=== PATIENT | male | born 1965 | race Caucasian/White ===

== ENCOUNTER 2023-08-09 22:39 | Inpatient (IN) | payer OTHER, SELFPAY ==
[2023-08-09] VITALS (8 sets, daily range): BP systolic 86–127; BP diastolic 58–87; BMI 27.1
--- NOTE | 2023-08-09 20:02 | ED.GENMED ---
History of Present Illness
General
Chief Complaint: Weakness
Source: patient
Exam Limitations: none
Time Seen by Provider: 08/09/23 19:55
Travel History
Have you had any contact with someone who has COVID-19?: No
Do you have any symptoms of coronavirus? Fever > 100 degrees, chills, cough, shortness of breath, sore throat, loss of taste or smell, muscle aches, or headache?: No
History of Present Illness
History of Present Illness:
See MDM
Past History
Past History
ED Past Medical History: HTN, Hypercholesterolemia and Other (Gout)
Social History
Tobacco: Non-smoker
Alcohol: None
Phy Exam
Physical Exam
Physical Exam:
See MDM
Course
Orders/Labs/Results
Orders:
Orders
08/09/23 19:51
Electrocardiogram (*1) Urgent
Reason for Study: Shortness of Breath
EKG- Treatment ONCE
08/09/23 20:00
0.9% Sodium Chloride 1000 ml [Nss] 1,000 ml IV BOLUS
08/09/23 20:01
CR Chest Portable - 1 View Urgent
Comment:
Reason For Exam: SOB
Reason Study Needs to be Portable: Patient Unstable
08/09/23 20:06
CPK [Creatine Phosphokinase] Urgent
Complete Blood Count/With Diff Urgent
Comprehensive Metabolic Panel Urgent
D-Dimer Urgent
Free T4 Urgent
Lactic Acid Q4H
Comment: CANCEL 2nd LACTIC ACID IF 1st LACTIC ACID IS LESS THAN 2
Lipase Urgent
Magnesium Urgent
Protime/PTT Urgent
TSH Reflex To Free T4 Urgent
Troponin I Urgent
08/09/23 20:40
0.9% Sodium Chloride 1000 ml [Nss] 1,000 ml IV BOLUS
08/09/23 20:50
Potassium Chloride [KCl] 40 meq 0.9% Sodium Chloride 250 ml [Nss] 250 ml IV NOW
08/09/23 20:57
Azithromycin 500 mg IVPB NOW Azithromycin 500 mg/250 ml [Zithromax Infusion] 500 mg in 250 ml IV NOW
08/09/23 20:58
Aztreonam [Azactam] 2,000 mg IV NOW STA
08/10/23 00:00
Lactic Acid Q4H
Comment: CANCEL 2nd LACTIC ACID IF 1st LACTIC ACID IS LESS THAN 2
Abnormal Lab Results
08/09/23
20:06
WBC 16.4 H 10^3/uL
(4.8-10.8)
RBC 4.25 L 10^6/uL
(4.70-6.10)
MCV 97.9 H fL
(80.0-94.0)
MCH 34.8 H pg
(27.0-31.0)
RDW 14.9 H %
(11.5-14.5)
Plt Count 501 H 10^3/uL
(130-400)
MPV 10.6 H fL
(7.4-10.4)
Abs Immat Gran (auto) 0.2 H 10^3/uL
(0-0.05)
Absolute Neuts (auto) 12.5 H 10^3/uL
(1.4-6.5)
Absolute Monos (auto) 0.7 H 10^3/uL
(0.1-0.6)
Immature Gran % 1.2 H %
(0-0.5)
Neutrophils % 75.8 H %
(42.2-75.2)
Lymphocytes % 17.5 L %
(20.5-51.1)
PT 17.9 H Sec
(11.4-14.6)
APTT 37.3 H Sec
(23.4-35.0)
D-Dimer 0.55 H ug/mlFEU
(0.00-0.50)
Sodium 123 L mmol/L
(135-145)
Potassium 2.9 L mmol/L
(3.5-5.1)
Chloride 91 L mmol/L
(98-107)
BUN 50 H mg/dl
(9-20)
Creatinine 2.0 H mg/dL
(0.7-1.3)
Glucose 135 H mg/dl
(70-99)
Lactic Acid 4.5 H* mmol/L
(0.7-2.0)
Calcium 7.9 L mg/dl
(8.4-10.2)
Magnesium 2.7 H mg/dl
(1.6-2.3)
Total Bilirubin 3.5 H mg/dl
(0.2-1.3)
AST 140 H U/L
(17-59)
ALT 75 H U/L
(0-50)
Alkaline Phosphatase 236 H U/L
(38-126)
Creatine Kinase 26 L U/L
(55-170)
Albumin 2.6 L g/dl
(3.5-5.0)
08/09/23 20:06
08/09/23 20:06
Vital Signs
Initial and Last Documented VS:
Initial Vital Signs
Temp
97.5 F
08/09/23 19:44
Last Documented Vital Signs
Temp Pulse Resp BP Pulse Ox
97.5 F 96 16 106/73 100
08/09/23 19:44 08/09/23 20:30 08/09/23 20:30 08/09/23 20:30 08/09/23 20:24
MDM/Problems Addressed
Differential Diagnosis Includes:
HPI and MDM Narrative:
57-year-old male presenting with generalized weakness, fatigue and shortness of breath. This has been ongoing for the past 2 weeks. Patient was told that outpatient blood work was very abnormal. Patient believes this could be related to recent
infusions of Krystexxa for uncontrolled gout.
Patient brought back to the emergency department immediately. He is tachycardic, pale and hypotensive
Physical exam
General: Uncomfortable, weak and fatigue
HEENT: protecting airway
Neck: appears supple. Dry mucous membranes
CV: No evidence of cyanosis. Tachycardic
Resp: No accessory muscle use
Abd: Non-distended
Extremities: No deformities
Neuro: alert
Psych: Normal affect
Skin: Pale
Problems Addressed including Acute and Chronic Conditions affecting care:
1. Generalized weakness
Acuity: acute
Prognosis: unstable
Details: Will obtain basic blood work looking for evidence of metabolic encephalopathy.
2. Shortness of breath
Acuity: acute
Prognosis: stable
Details: Likely related to side effect of Krystexxa. Will obtain chest x-ray
3. Dehydration
Acuity: acute
Prognosis: stable
Details: Will start IV fluids
4. Hypokalemia
Acuity: acute
Prognosis: stable
Details: Will replete with IV potassium
5. Pneumonia
Acuity: Acute
Prognosis: Stable
Details: Concern for right middle lobe pneumonia on chest x-ray. Given the leukocytosis and elevated lactic acid, will start azithromycin and aztreonam given his penicillin allergy
Updates
Patient with multiple lab abnormalities. Patient is hyponatremic and hypokalemic. He has an elevated lactic acid and elevated LFTs. On reassessment, patient continues to have no tenderness to right upper quadrant tenderness
Differential Diagnosis (but not limited to): Dehydration, anemia, adverse medication side effect, pneumonia
Testing considered: D-dimer
Drug therapy (if applicable): OTC meds, please see d/c instruction regarding Rx drugs
Amount and/or Complexity of Data Reviewed
Clinical info obtained from: Patient
External data reviewed: N/A
Labs I independently reviewed (but not limited to): Sodium 123, potassium 2.9, lactic acid 4.5, leukocytosis
Radiology: X-ray independently reviewed: Chest x-ray concerning for right middle lobe pneumonia
Pulse Ox: not hypoxic
EKG independently reviewed: Sinus tachycardia, normal axis, no STEMI
Business Case Analyst: Sinus tachycardia
Critical Care: The high probability of a clinically significant, sudden or life threatening deterioration of the cardiovascular system(s) required my full and direct attention, intervention and personal management. The aggregate critical care time
was 33 minutes. This time is in addition to time spent performing reported procedures but includes the following:
[x] Data Review and interpretation
[x] Patient assessment and monitoring of vital signs
[x] Documentation
[x] Medication orders and management
Risk of Complication:
Social Determinants of health: Good social support
Discussed with other providers: Hospitalist
Escalation of Care includes Admit/Obs: Given his multiple lab abnormalities, will admit
Occasional wrong word or 'sound a like' substitutions may have occurred due to the inherent limitations of voice recognition software. Read the chart carefully and recognize, using context, where substitutions have occurred.
*Critical Care Note
Total Time (30-74mins, 75-104mins- exclusive of procedures): 33 min
ED Attending Note
-
Portions of this chart may have been created with voice recognition software.� Occasional wrong word or��sound alike� substitutions may have occurred due to the inherent limitations of voice recognition software.
Discharge Plan
Departure
Patient Disposition: Admit
Date of Disposition: 08/09/23
Time of Disposition: 20:52
Admit to: IMU
Presentation/result/management discussed w/ accepting MD/DO: Hospitalist
Discharge Problem:
Hypovolemia, Acute hyponatremia, Hypokalemia, PNA (pneumonia)
Prescriptions:
No Action
amlodipine 5 mg Tablet
5 mg PO DAILY
levothyroxine 75 mcg Tablet
75 mcg PO DAILY
methotrexate sodium 2.5 mg Tablet
15 mg PO SA
folic acid 1 mg Tablet
1 mg PO DAILY
colchicine 0.6 mg Tablet
0.6 mg PO DAILY
Patient Comments:
08/09/2023: Pt states he sometimes skips if he hasn't eaten a lot or doesn't have a flare up.
Krystexxa 8 mg/mL Solution
8 mg IV Q2W
Interventions
Interventions:
*Risk Screen - Suicide Last Done: 08/09/23 19:44
*General Assessment Last Done: 08/09/23 19:44
*Neglect/Abuse Screening Last Done: 08/09/23 19:44
ED- Fall Risk Assessment Last Done: 08/09/23 20:24
*ED COVID-19 Vaccine History Last Done: 08/09/23 19:44
ED- Cardiac Assessment Last Done: 08/09/23 20:24
ED- Neurological Assessment Last Done: 08/09/23 20:24
ED- Pulmonary Assessment Last Done: 08/09/23 20:24
[2023-08-09 20:15] LABS: % Basophils 0.7 % (0-2); % Eosinophils 0.7 % (0-6); % Immature Granulocytes 1.2 % (0-0.5); % Lymphocytes 17.5 % (20.5-51.1); % Monocytes 4.1 % (1.7-9.3); % Neutrophils 75.8 % (42.2-75.2); Absolute Basophils 0.1 10^3/uL (0-0.2); Absolute Eosinophils 0.1 10^3/uL (0-0.7); Absolute Immature Granulocytes 0.2 10^3/uL (0-0.05); Absolute Lymphocytes 2.9 10^3/uL (1.2-3.4); Absolute Monocytes 0.7 10^3/uL (0.1-0.6); Absolute Neutrophils 12.5 10^3/uL (1.4-6.5); Hematocrit 41.6 % (39.0-52.0); Hemoglobin 14.8 g/dL (13.0-18.0); Mean Corp Hgb Conc. 35.6 g/dL (33.0-37.0); Mean Corpuscular Hgb 34.8 pg (27.0-31.0); Mean Corpuscular Volume 97.9 fL (80.0-94.0); Mean Platelet Volume 10.6 fL (7.4-10.4); Nucleated Red Blood Cells % 0.1 % (-); Platelet Count 501 10^3/uL (130-400); Red Blood Cell Count 4.25 10^6/uL (4.70-6.10); Red Cell Dist. Width 14.9 % (11.5-14.5); White Blood Cell Count 16.4 10^3/uL (4.8-10.8)
[2023-08-09] MEDS: NSS 1000 IV ×2 (20:17→21:02)
[2023-08-09 20:24] LABS: INR 1.47; PT 17.9 Sec (11.4-14.6)
[2023-08-09 20:25] LABS: APTT 37.3 Sec (23.4-35.0)
[2023-08-09 20:27] LABS: D-Dimer 0.55 ug/mlFEU (0.00-0.50)
[2023-08-09 20:29] LABS: Lactic Acid 4.5 mmol/L (0.7-2.0)
[2023-08-09 20:30] LABS: ALT (SGPT) 75 U/L (0-50); AST (SGOT) 140 U/L (17-59); Albumin 2.6 g/dl (3.5-5.0); Alkaline Phosphatase 236 U/L (38-126); Blood Urea Nitrogen 50 mg/dl (9-20); Calcium 7.9 mg/dl (8.4-10.2); Carbon Dioxide 23 mmol/L (22-30); Chloride 91 mmol/L (98-107); Creatine Phosphokinase 26 U/L (55-170); Estimated Creatinine Clearance 39 ml/min; Glucose 135 mg/dl (70-99); Lipase 71 U/L (23-300); Magnesium 2.7 mg/dl (1.6-2.3); Potassium 2.9 mmol/L (3.5-5.1); Sodium 123 mmol/L (135-145); Total Bilirubin 3.5 mg/dl (0.2-1.3); Total Protein 6.6 g/dl (6.3-8.2); eGFR 38.69
[2023-08-09] MEDS: AZACTAM 2000 MG IV (21:12)
[2023-08-09] MEDS: ZITHROMAX INFUSION 250 IV (21:33)
--- NOTE | 2023-08-09 22:09 | HPS.HSE ---
Family Physician
-
Family Physician: Juan Acevedo IV, MD
Chief Complaint
-
Weakness
History of Present Illness
Patient is a 57y M with PMH significant for hypothyroidism, gout and hypertension who presents to ED complaining of progressive weakness, dizziness and frequent falls over the past several weeks. Patient states that he first noted significant
fatigue and positional dizziness / lightheadedness in early July. His symptoms have steadily progressed since that time. Patient states that he has fallen on several occasions due to weakness and his legs 'giving out' on him while walking. He
states that he is able only to walk very short distances before becoming severely short of breath and weak.
Patient has noted a severe itchy rash / acne breakout on his face over the past week or so.
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 He was started on MTX in April 2023.
He denies any other new medications.
Patient notes that he was seen recently by his PCP and his [facility] and voiced concern with his current symptoms.
Labs were obtained and were reportedly 'all abnormal'.
Patient notes that he himself stopped all of his medications about one week ago.
This evening he presented to the ED for further evaluation and treatment.
Medical History
Past Medical History
Past Medical History: Reports Other
Additional Past Medical History:
Tophaceous Gout
Hypertension
Hypothyroidism
Past Surgical History: Reports Other
Additional Past Surgical History:
Right Hand Tendon Surgery
Social History
Tobacco: Smoker (Current every day smoker (though none in the past week or so due to his symptoms).)
Alcohol: None
Drug: None
Family History
Family History: Other (MGF: CAD, Colon Cancer)
Allergies / Home Medications
Allergies reflects when Allergies were last updated in [employer].
Home Medications with original date entered in [employer]
Allergy/Medication List:
Allergies
Allergy/AdvReac Type Severity Reaction Status Date / Time
Penicillins Allergy Unknown Verified 08/09/23 19:45
Home Medications
amlodipine 5 mg tablet 5 mg PO DAILY 08/09/23
colchicine 0.6 mg tablet 0.6 mg PO DAILY 08/09/23
folic acid 1 mg tablet 1 mg PO DAILY 08/09/23
levothyroxine 75 mcg tablet 75 mcg PO DAILY 08/09/23
methotrexate sodium 2.5 mg tablet 15 mg PO SA 08/09/23
pegloticase 8 mg/mL intravenous solution (Krystexxa) 8 mg IV Q2W 08/09/23
Review of Systems
-
History Source: Patient
A 12 point ROS was completed and negative except as noted: Yes
Constitutional: Reports Fever, Fatigue and Chills
EENT: Denies Sore Throat
Respiratory: Reports Trouble Breathing; Denies Cough or Hemoptysis
Cardiac: Reports Diaphoresis; Denies Chest Pain, Palpitations or Syncope
Abdomen/GI: Denies Abdominal Pain, Nausea, Vomiting, Diarrhea, Bloody Stools or Black Stools
: Denies Dysuria, Frequency, Bleeding or Dark Urine
Musculoskeletal: Denies Joint Pain, Joint Swelling or Edema
Neurological: Reports Dizzy and Weakness; Denies Headache
Psych: Denies Depression or Anxiety
Physical Exam
Vital Signs
Vital Signs
Temp Pulse Resp BP Pulse Ox
97.5 F 96 16 106/73 100
08/09/23 19:44 08/09/23 20:30 08/09/23 20:30 08/09/23 20:30 08/09/23 20:24
Physical Exam
General: Other (57y M in no acute distress.)
HEENT: Other (Dry MM. Rounded facies. Erythematous, maculopapular rash across face.)
Respiratory: Other (Rales at R base. Otherwise clear.)
Cardiac: S1/S2 and Tachycardia; No Murmur
GI: Soft, Non Distended, Normal Bowel Sounds and Other (Mild epigastric tenderness. No rebound / guarding.)
Musculoskeletal: No Clubbing, No Cyanosis, No Edema and Other (Scattered gouty tophi (hands, elbows, knees). No erythema, increased warmth, tenderness.)
Neuro: AO x 3 and Nonfocal/grossly intact
Laboratory Results
-
08/09/23 20:06
08/09/23 20:06
Laboratory Results
PT 17.9 Sec (11.4-14.6) H 08/09/23 20:06
INR 1.47 08/09/23 20:06
APTT 37.3 Sec (23.4-35.0) H 08/09/23 20:06
Lactic Acid 4.5 mmol/L (0.7-2.0) H* 08/09/23 20:06
Total Bilirubin 3.5 mg/dl (0.2-1.3) H 08/09/23 20:06
AST 140 U/L (17-59) H 08/09/23 20:06
ALT 75 U/L (0-50) H 08/09/23 20:06
Alkaline Phosphatase 236 U/L (38-126) H 08/09/23 20:06
Troponin I 0.030 ng/ml 08/09/23 20:06
Lipase 71 U/L (23-300) 08/09/23 20:06
Impression/Plan
-
A/P: Patient is a 57y M with PMH significant for hypothyroidism, hypertension and gout who presents to ED complaining of progressive weakness and fatigue x weeks / months.
DOROTEO
Hypokalemia
Hyponatremia
Hypotension
Lactic Acidosis
- Admit for further evaluation and treatment.
- Patient appears significantly volume depleted with hypotension, weakness, etc.
- IVF support and electrolyte correction.
- Follow for improvement in labs / lytes.
- Nephrology evaluation for additional recommendations.
- Check urinalysis, sodium studies and urine for eosinophils.
- Would hold further MTX and Krystexxa for now pending further evaluation.
Abnormal LFTs
- Patient with hyperbilirubinemia and abnormal AST > ALT.
- ? med effect, adverse drug reaction / hypersensitivity reaction (delayed).
- ? hemolytic process - type and screen pending - follow for changes in Hgb with volume replacement.
- Hold meds as noted above.
- Check US for completeness.
- Check CPK.
- Follow for improvement.
Leukocytosis / Thrombocytosis
- Suspect this is volume mediated.
- Follow for any fever or other focal symptoms.
- Observe off of further abx for now.
- Follow for changes in cell counts.
Hypothyroidism
- Under-replaced. In part due to patient taking no meds for at least one week.
- Restart T4 supplementation at slightly higher dose.
- Repeat TFTs in 4-6 weeks.
Benign Hypertension
- Currently hypotensive. Hold amlodipine.
Severe Tophaceous Gout
- Stable at present.
- Patient notes that tophi are significantly improved from prior.
DVT Prophylaxis: SCDs
Code Status: Full
[2023-08-09] MEDS: KCL 270 MEQ IV (22:15)
[2023-08-10] VITALS (29 sets, daily range): BP systolic 84–108; BP diastolic 60–85; PULSE 96–116; BMI 27.5
[2023-08-10 00:40] LABS: Lactic Acid 1.1 mmol/L (0.7-2.0)
[2023-08-10 01:05] LABS: Complement C3 61 mg/dl (88-165)
[2023-08-10] MEDS: NSS with KCL 20 MEQ 1000 IV ×3 (01:35→23:20)
[2023-08-10 04:11] LABS: Urine Albumin Negative (Neg - Trace); Urine Bilirubin 1+ (Negative); Urine Character Clear (Clear); Urine Color Amber; Urine Glucose Negative (Negative); Urine Ketone Trace (Negative); Urine Leukocyte Negative (Negative); Urine Nitrite Negative (Negative); Urine Occult Blood Negative (Negative); Urine Specific Gravity 1.015 (<1.030); Urine Urobilinogen 2+ (Neg - 1+)
[2023-08-10 04:24] LABS: Urine Sodium 9 mmol/L (30-90)
[2023-08-10 04:54] LABS: Osmolality Urine 435 mOsm/kg (300-900)
[2023-08-10 05:40] LABS: Body Fluid for Eosinophils No Eosinophils seen
[2023-08-10] MEDS: NSS 250 IV (05:56)
[2023-08-10 06:14] LABS: Hematocrit 34.3 % (39.0-52.0); Mean Corpuscular Hgb 34.8 pg (27.0-31.0); Mean Corpuscular Volume 99.4 fL (80.0-94.0); Mean Platelet Volume 11.2 fL (7.4-10.4); Platelet Count 314 10^3/uL (130-400); Red Blood Cell Count 3.45 10^6/uL (4.70-6.10); Red Cell Dist. Width 14.3 % (11.5-14.5); White Blood Cell Count 10.8 10^3/uL (4.8-10.8)
[2023-08-10 06:25] LABS: PT 19.2 Sec (11.4-14.6)
[2023-08-10 06:54] LABS: ALT (SGPT) 66 U/L (0-50); AST (SGOT) 122 U/L (17-59); Albumin 1.8 g/dl (3.5-5.0); Alkaline Phosphatase 181 U/L (38-126); Blood Urea Nitrogen 44 mg/dl (9-20); Calcium 6.7 mg/dl (8.4-10.2); Carbon Dioxide 21 mmol/L (22-30); Chloride 103 mmol/L (98-107); Direct Bilirubin 1.6 mg/dl (0.0-0.4); Estimated Creatinine Clearance 49 ml/min; Glucose 57 mg/dl (70-99); Magnesium 2.3 mg/dl (1.6-2.3); Phosphorus 3.5 mg/dl (2.5-4.5); Potassium 3.4 mmol/L (3.5-5.1); Sodium 127 mmol/L (135-145); Total Bilirubin 2.5 mg/dl (0.2-1.3); Total Protein 5.1 g/dl (6.3-8.2); eGFR 50.57
[2023-08-10] MEDS: NSS (PRESERVATIVE FREE) 10 ML IV (08:38)
[2023-08-10] MEDS: SYNTHROID 88 MCG PO (08:38)
[2023-08-10] MEDS: FOLVITE 1 MG PO (08:38)
[2023-08-10] MEDS: PROTONIX IV 40 MG IV (08:39)
--- NOTE | 2023-08-10 13:56 | W.CON.NEPH ---
Consultation
-
Date/Time Consultation Requested: 08/10/23 12AM
Date/Time Consultation Performed: 08/10/23 1:56PM
Requesting Provider: Lazarus Hyatt
Performing Provider: Kristen Cardoso
Reason for Consultation: DOROTEO
Medical History
-
Chief Complaint: DOROTEO, hyponatremia
History of Present Illness:
Mr. Conner is a 57YOm with PMH of hypothyroidism, gout, HTN who presents to the ED complaining of abnormal labs, weakness, dizziness and frequent falls. Briefly, the patient states that he has not been feeling well since late May (started
Krystexxa early May). He states that he feels like his legs are going to give out underneath him and has fallen multiple times at home, but never hit his head. He states that his gout has gotten significantly better since starting Krystexxa,
except for his R great toe. He was recently seen by PCP and rheum who noted his labs as being abnormal and held his Krystexxa infusions. Patient stopped all of his home medications (including antihypertensives 1 week ago). States that he has not
been eating and drinking well.
Past Medical History
Past Medical History: HTN, Hypothyroidism and Other (gout)
Past Surgical History: Other (R hand tendon surgery)
Social History
Tobacco: Smoker
Alcohol: None
Drug: None
Family History
no CKD in the family
Allergies / Home Medications
Allergy/AdvReac Type Severity Reaction Status Date / Time
Penicillins Allergy Unknown Verified 08/09/23 19:45
Medication Instructions Recorded Confirmed Type
amlodipine 5 mg tablet 5 mg PO DAILY 08/09/23 08/09/23 History
colchicine 0.6 mg tablet 0.6 mg PO DAILY 08/09/23 08/09/23 History
folic acid 1 mg tablet 1 mg PO DAILY 08/09/23 08/09/23 History
levothyroxine 75 mcg tablet 75 mcg PO DAILY 08/09/23 08/09/23 History
methotrexate sodium 2.5 mg tablet 15 mg PO SA 08/09/23 08/09/23 History
pegloticase 8 mg/mL intravenous 8 mg IV Q2W 08/09/23 08/09/23 History
solution (Krystexxa)
Review of Systems
-
History Source: Patient
All other systems: Negative unless noted
Constitutional: Fatigue
EENT: No Symptoms
Respiratory: Trouble Breathing (with exertion)
Cardiac: No Symptoms
Abdomen/GI: No Symptoms
: No Symptoms
Musculoskeletal: No Symptoms
Skin: Itching and Other (acne)
Neurological: Dizzy and Weakness
Endocrine: No Symptoms
Hematologic/Lymphatic: No Symptoms
Physical Exam
Vital Signs
Vital Signs
Temp Pulse Resp BP Pulse Ox
97.8 F 88 20 91/68 98
08/10/23 10:49 08/10/23 10:49 08/10/23 10:49 08/10/23 10:49 08/10/23 10:49
Lab Results
WBC 10.8 10^3/uL (4.8-10.8) 08/10/23 05:48
RBC 3.45 10^6/uL (4.70-6.10) L 08/10/23 05:48
Hgb 12.0 g/dL (13.0-18.0) L 08/10/23 05:48
Hct 34.3 % (39.0-52.0) L 08/10/23 05:48
Plt Count 314 10^3/uL (130-400) D 08/10/23 05:48
Sodium 127 mmol/L (135-145) L 08/10/23 05:48
Potassium 3.4 mmol/L (3.5-5.1) L 08/10/23 05:48
Chloride 103 mmol/L (98-107) 08/10/23 05:48
Carbon Dioxide 21 mmol/L (22-30) L 08/10/23 05:48
BUN 44 mg/dl (9-20) H 08/10/23 05:48
Creatinine 1.6 mg/dL (0.7-1.3) H 08/10/23 05:48
eGFR 50.57 08/10/23 05:48
Glucose 57 mg/dl (70-99) L 08/10/23 05:48
Calcium 6.7 mg/dl (8.4-10.2) L* 08/10/23 05:48
Phosphorus 3.5 mg/dl (2.5-4.5) 08/10/23 05:48
Albumin 1.8 g/dl (3.5-5.0) L 08/10/23 05:48
Physical Exam
General: AOx3, No Distress and Nontoxic
HEENT: PERRL, EOMI, Ear/Nose Intact, Hearing Normal and Facial Symmetry
Respiratory: Clear, Normal Excursion and Nonlabored Respirations
Cardiac: S1/S2, Regular Rate/Rhythm and No Edema
Breast: N/A
Abdomen: Soft, Nontender and Nondistended
Rectal: Deferred by Provider
Genito-urinary: No Costovertebral Tender
Musculoskeletal: No Edema
Skin: No Rash, Warm and Dry
Neuro: Nonfocal/Grossly Intact
Psych: Mood/afflect pleasant and Insight/judgement good
Assessment/Plan
-
Assessment:
Gout
Hypertension (now hypotensive)
Hypothyoridism
Leukocytosis
HAGMA + mild metabolic alkalosis
Hyponatremia
DOROTEO
Plan:
- likely has hypovolemic hyponatremia and pre-renal DOROTEO (Eddy 9, trace ketones noted in urine)
- improved significantly with fluids, continue NS at 125cc/hr
- encourage adequate PO intake
- kidneys normal in size per abd US
- hypotension noted --> avoid all antihypertensives
- lactic acid now normalized. will defer imaging of R great toe to rheumatology. this is the only joint he states did not improve with pegloticase. ?infection
Data Reviewed
-
Radiology: Image Personally Visualized and interpreted
Ultrasound: Report Reviewed by me
Labs: Labs Reviewed by me and Discussed with Patient
Old Records: Reviewed
--- NOTE | 2023-08-10 15:15 | PTCARENOTE ---
pt presents from ED via stretcher. pt is AAO*3, vss, room air. denies any pain at this time. pt is oriented to the room. call limon within the reach. will continue plan of care.
--- NOTE | 2023-08-10 15:24 | CON.RHM ---
Addendum entered and electronically signed by Jerry Otto MD 08/10/23 17:16:
I have seen the patient with Richmond Root PA-C and I agree with the assessment and plan with the following additions.
57 yo with severe tophaceous gout who follows with me as an outpatient for Krystexxa. Who presented with acute on chronic weakness and dizziness found to have DOROTEO, LFT abnormalities, lactic acidosis and hyponatremia. Rheumatology was consulted
regarding concern for medication rxn/toxicity.
Medication prior to admission noted to be MTX 15 mg weekly, folic acid 1 mg daily, colchicine 0.6 mg daily and Krystexxa infusions every 2 weeks. Outpatient labs prior to admission on 07/28 noted to have CRP of 168, Cr of 1.62, ESR 92, sodium of 130,
uric acid <1.5. He was recommended to repeat his labs at this time due to possible lab error.
He reports he stopped his colchicine and MTX at the time he was found to have these abnormal labs. Admits poor compliance with colchicine but was taking MTX and folic acid as directed. He endorses poor PO intake along with ache/stiffness in the
shoulders and neck. Weakness in the arms prevented him from lifting up a cigarette. Similarly he felt so weak in the LEs and thighs that getting to the bathroom was difficult. Exam notable for inability to keep arms elevated against resistance.
Weakness/Fatigue/DOROTEO/Transaminitis/Lactic Acidosis/Hyponatremia
- drug toxicity is a consideration however it would not explain his inflammatory markers (CRP 168, ESR 92 07/28/2023)
- he did stop all his medications around 07/28
- given shoulder/neck stiffness and hip girdle weakness, PMR needs to be considered, he denies GCA symptoms
- presentation could be due to poor PO intake in the setting of PMR flare c/b colchicine/MTX use
- thankfully his labs seem to be improving
- recommend checking ESR/CRP - if elevated, start pred 30 mg daily
- hold MTX and colchicine for now, will halt Krystexxa infusions as outpatient
- we will continue to follow
Jerry Otto MD, MSHI
[facility]
[phone]
Original Note:
Assessment/Plan
-
Less likely can attribute current presentation to medications. Still, will hold MTX, colchicine and krystexxa until can determine further outpatient. Given his sudden onset myalgia and weakness in setting of elevated inflammatory markers, concern
for possible PMR. No sign of GCA at this time. Advise checking CRP and ESR. If still elevated, should start prednisone 30mg/d. Will continue to follow.
-Richmond Root PA-C
History of Present Illness
-
PC is a 57 yo male with PMH of HTN, hypothyroidism currently txed for tophaceous gout � following with Dr Otto. He presented to ED on 08/09/23 for progressive fatigue, dizziness. Found to have DOROTEO, hypokalemia, hyponatremia, hypotension, transaminitis.
Leukopenia and thrombocytopenia, since resolved. Today he feels some improved after IV fluids. Denies red hot swollen joints, however c/o much diffuse myalgia worse in shoulders. C/o weakness. Admits that this may have been limiting his diet prior
to hospitalization. Note elevated CRP and ESR from outpatient labs. Denies GCA symptoms.
Current medications include MTX 15mg/wk, folic acid 1mg/d, colchicine 0.6mg/d (taking really only QOD), krystexxa (started 05/2023, last dose 08/09/23). Stopped MTX and colchicine one week ago
Review of Systems
-
General: Chest Pain: No, Vomiting: No, Diarrhea: No, Constipation: No, Fatigue: Yes, Fever: No, Edema: No, Tingling: No, Numbness: No and Headache: No
Connective Tissue: Rash: No and Joint Pain: No
Vasculitis: Rash: No, Hematuria: No, Hemoptysis: No, Numbness: No, Tingling: No, Fatigue: Yes, Headache: No, Scalp Tenderness: No, Jaw Claudication: No and Visual Changes: No
Data Reviewed
Patient Allergies
Allergy/AdvReac Type Severity Reaction Status Date / Time
Penicillins Allergy Unknown Verified 08/09/23 19:45
Physical Exam
-
Constitutional: Alert and Oriented
Skin: Warm and Clear
Lungs: Clear to Auscultation
Heart: Regular Rate & Rhythm
Extremities: No Edema
Neurological: Strength Nml Throughout (4/5 bl UE and LE)
Psych: Appropriate Behavior and Speech Appropriate
Joints: No Synovitis Anywhere
[2023-08-10] MEDS: NSS with KCL 20 MEQ IV (15:29)
--- NOTE | 2023-08-10 16:38 | W.PN.HOSP.TC ---
Today's Communication/Plan
-
IVF
recheck labs
hold anti HTN Rx for now
Assessment / Plan
Assessment / Plan
A/P:� Patient is a 57y M with PMH significant for hypothyroidism, hypertension and gout who presents to ED complaining of progressive weakness and fatigue x weeks / months.
DOROTEO
Hypokalemia
Hyponatremia
Hypotension
Lactic Acidosis
�- Admit for further evaluation and treatment.
�- Patient appears significantly volume depleted with hypotension, weakness, etc.
�- IVF support and electrolyte correction.
�- Follow for improvement in labs / lytes.
�- Nephrology evaluation for additional recommendations.
�- Check urinalysis, sodium studies and urine for eosinophils.
�- Would hold further MTX and Krystexxa for now pending further evaluation.
WBC 16.4-->10.8
Na 123-->127
K 2.9-->3.4
Abnormal LFTs
�- Patient with hyperbilirubinemia and abnormal AST > ALT.
�- ? med effect, adverse drug reaction / hypersensitivity reaction (delayed).
�- ? hemolytic process - type and screen pending - follow for changes in Hgb with volume replacement.
�- Hold meds as noted above.
�- Check US for completeness.
�- Check CPK.
�- Follow for improvement.
Leukocytosis / Thrombocytosis
�- Suspect this is volume mediated.
�- Follow for any fever or other focal symptoms.
�- Observe off of further abx for now.
�- Follow for changes in cell counts.
Hypothyroidism
�- Under-replaced.� In part due to patient taking no meds for at least one week.
�- Restart T4 supplementation at slightly higher dose.
�- Repeat TFTs in 4-6 weeks.
Benign Hypertension
�- Currently hypotensive.� Hold amlodipine.
Severe Tophaceous Gout
�- Stable at present.
�- Patient notes that tophi are significantly improved from prior.
DVT Prophylaxis: SCDs
call placed and discussed with Jerry Otto ([phone]). Labs are very abnormal, including severe hypoalbuminemia
As per Dr. Otto, pt also had very high ESR, ?inflammatory condition of unclear etiology
continue IVF
complex situation
will repeat labs
input of consultants appreciated
Code Status:� Full
Anticipated Discharge: > 48 hours
Subjective/Interval History
-
Date of Service: August 10, 2023
Remains weak and feels ill
Objective Data
-
Labs:
Laboratory Results
08/10/23
05:48
WBC 10.8
Hgb 12.0 L
Hct 34.3 L
Plt Count 314 D
PT 19.2 H
INR 1.60
Sodium 127 L
Potassium 3.4 L
Chloride 103
Carbon Dioxide 21 L
BUN 44 H
Creatinine 1.6 H
Glucose 57 L
Calcium 6.7 L*
Total Bilirubin 2.5 H
AST 122 H
ALT 66 H
Alkaline Phosphatase 181 H
Vital Signs:
Vital Signs
Temp Pulse Resp BP Pulse Ox
98.3 F 106 18 104/70 96
08/10/23 15:12 08/10/23 15:12 08/10/23 15:12 08/10/23 15:12 08/10/23 15:12
I&O
08/09/23 08/10/23 08/11/23
06:59 06:59 06:59
Output Total 300 / 300 180 / 180
Balance -300 / -300 -180 / -180
Review of Systems
-
History Source: Patient and Physician (reviewed with Dr. Jerry Otto)
Constitutional: Denies Fever
Respiratory: Reports No Symptoms; Denies Trouble Breathing
Cardiac: Reports No Symptoms
Abdomen/GI: Reports No Symptoms
Musculoskeletal: Reports Arthralgias and Muscle Weakness
Neuro: Reports Weakness
Physical Exam
-
General: Well Developed, Well Nourished, Appears in Distress, Pain, Conversant and Appears Chronically Ill
HEENT: Normocephalic, Atraumatic and Moist Mucous Membranes
Respiratory: Clear to Auscultation; Negative Wheezes, Rales or Rhonchi
Cardiac: Regular Rhythm and S1/S2
GI: Soft, Nontender and Nondistended
Musculoskeletal: No Clubbing, No Cyanosis and No Edema
Skin: Warm and Dry
Neuro: Awake, Alert and Oriented
[2023-08-11 03:56] VITALS: BP 97/63
[2023-08-11 06:00] VITALS: BMI 27.8
[2023-08-11] MEDS: SYNTHROID 88 MCG PO (06:16)
[2023-08-11 07:14] LABS: % Eosinophils 2.4 % (0-6); % Immature Granulocytes 1.2 % (0-0.5); % Lymphocytes 19.4 % (20.5-51.1); Absolute Basophils 0.1 10^3/uL (0-0.2); Absolute Eosinophils 0.2 10^3/uL (0-0.7); Absolute Immature Granulocytes 0.1 10^3/uL (0-0.05); Absolute Lymphocytes 1.7 10^3/uL (1.2-3.4); Absolute Monocytes 0.4 10^3/uL (0.1-0.6); Absolute Neutrophils 6.1 10^3/uL (1.4-6.5); Hematocrit 34.9 % (39.0-52.0); Hemoglobin 12.1 g/dL (13.0-18.0); Mean Corp Hgb Conc. 34.7 g/dL (33.0-37.0); Mean Corpuscular Hgb 34.9 pg (27.0-31.0); Mean Corpuscular Volume 100.6 fL (80.0-94.0); Mean Platelet Volume 11.1 fL (7.4-10.4); Nucleated Red Blood Cells % 0 % (-); Platelet Count 257 10^3/uL (130-400); Red Blood Cell Count 3.47 10^6/uL (4.70-6.10); Red Cell Dist. Width 14.8 % (11.5-14.5); White Blood Cell Count 8.6 10^3/uL (4.8-10.8)
[2023-08-11 07:22] LABS: INR 1.63; PT 19.1 Sec (11.4-14.6)
[2023-08-11 07:35] VITALS: BP 103/72
[2023-08-11] MEDS: NSS with KCL 20 MEQ 1000 IV ×2 (07:35→16:28)
[2023-08-11 07:49] LABS: Erythrocyte Sed Rate 34 mm/hour (0-20)
[2023-08-11 07:51] LABS: ALT (SGPT) 71 U/L (0-50); AST (SGOT) 117 U/L (17-59); Albumin 1.8 g/dl (3.5-5.0); Alkaline Phosphatase 210 U/L (38-126); Blood Urea Nitrogen 29 mg/dl (9-20); Calcium 6.9 mg/dl (8.4-10.2); Carbon Dioxide 18 mmol/L (22-30); Chloride 109 mmol/L (98-107); Estimated Creatinine Clearance 65 ml/min; Glucose 89 mg/dl (70-99); Potassium 3.3 mmol/L (3.5-5.1); Sodium 130 mmol/L (135-145); Total Bilirubin 1.7 mg/dl (0.2-1.3); eGFR > 60.00
[2023-08-11] MEDS: FOLVITE 1 MG PO (08:37)
[2023-08-11] MEDS: PROTONIX IV 40 MG IV (08:38)
[2023-08-11] MEDS: NSS (PRESERVATIVE FREE) 10 ML IV (08:38)
--- NOTE | 2023-08-11 10:43 | W.PN.HOSP.TC ---
Today's Communication/Plan
-
follow labs
Ca supplement (though significant component is hypoalbuminenemia
continue IVF
add Prednisone 30 mg daily as per Dr. Otto
Assessment / Plan
Assessment / Plan
A/P:� Patient is a 57y M with PMH significant for hypothyroidism, hypertension and gout who presents to ED complaining of progressive weakness and fatigue x weeks / months.
DOROTEO
Hypokalemia
Hyponatremia
Hypotension
Lactic Acidosis
better 4.5-->1.1
�- Patient appeared significantly volume depleted with hypotension, weakness, etc.
this has improved with IVF
�- IVF support and electrolyte correction.
�- Nephrology evaluation for additional recommendations appreciated
�- Check urinalysis, sodium studies and urine for eosinophils.
�- Would hold further MTX and Krystexxa for now pending further evaluation.
WBC 16.4-->10.8-->8.6
Na 123-->127-->130
K 2.9-->3.4-->3.3
Abnormal LFTs
�- Patient with hyperbilirubinemia better 3.5-->2.5-->1.7 and abnormal AST 140-->122-->117 > ALT 75-->66-->71.
�- ? med effect, adverse drug reaction / hypersensitivity reaction (delayed).
�- ? hemolytic process - type and screen pending - follow for changes in Hgb with volume replacement.
Hgb 14.8-->12.0-->12.1
�- Hold meds as noted above.
�- Liver US Diffuse fatty infiltration of the liver.
Biliary sludge in the gallbladder..
�- CPK 26.
Leukocytosis / Thrombocytosis
�- Suspect this is volume mediated.
�- Follow for any fever or other focal symptoms.
�- Observe off of further abx for now.
�- Follow for changes in cell counts.
Hypothyroidism
�- Under-replaced.� In part due to patient taking no meds for at least one week.
�- Restart T4 supplementation at slightly higher dose.
�- Repeat TFTs in 4-6 weeks.
Benign Hypertension
�- Currently hypotensive.� Hold amlodipine.
better 103/72, potentially resume BP Rx next 1-2 days
Severe Tophaceous Gout
�- Stable at present.
�- Patient notes that tophi are significantly improved from prior.
DVT Prophylaxis: SCDs
call placed and discussed with Jerry Otto (C [phone]). Labs are very abnormal, including severe hypoalbuminemia
As per Dr. Otto, pt also had very high ESR, ?inflammatory condition of unclear etiology
Now ESR 34/CRP 23.7
continue IVF
complex situation
will repeat labs
input of consultants appreciated
starting to eat, though appetite not back to baseline
Dr. Otto believes this could be PMR and would like to start Prednisone at 30 mg daily
Code Status:� Full
complex situation
Anticipated Discharge: > 48 hours
Subjective/Interval History
-
Date of Service: August 11, 2023
Awake, alert, believes he is feeling a little better, though not back to baseline
Objective Data
-
Labs:
Laboratory Results
08/11/23
05:45
WBC 8.6
Hgb 12.1 L
Hct 34.9 L
Plt Count 257
PT 19.1 H
INR 1.63
Sodium 130 L
Potassium 3.3 L
Chloride 109 H
Carbon Dioxide 18 L
BUN 29 H
Creatinine 1.2
Glucose 89
Calcium 6.9 L*
Total Bilirubin 1.7 H
AST 117 H
ALT 71 H
Alkaline Phosphatase 210 H
Vital Signs:
Vital Signs
Temp Pulse Resp BP Pulse Ox
97.6 F 101 18 103/72 97
08/11/23 07:35 08/11/23 07:35 08/11/23 07:35 08/11/23 07:35 08/11/23 08:30
I&O
08/10/23 08/11/23 08/12/23
06:59 06:59 07:59
Intake Total 1999
Output Total 300 / 300 855 / 855
Balance -300 / -300 1145 / 1145
Review of Systems
-
History Source: Patient and Physician (reviewed with Dr. Jerry Otto)
Constitutional: Denies Fever
Respiratory: Reports No Symptoms; Denies Trouble Breathing
Cardiac: Reports No Symptoms
Abdomen/GI: Reports No Symptoms
Musculoskeletal: Reports Arthralgias and Muscle Weakness
Neuro: Reports Weakness
Physical Exam
-
General: Well Developed, Well Nourished, Appears in Distress, Pain, Conversant and Appears Chronically Ill
HEENT: Normocephalic, Atraumatic and Moist Mucous Membranes
Respiratory: Clear to Auscultation; Negative Wheezes, Rales or Rhonchi
Cardiac: Regular Rhythm and S1/S2
GI: Soft, Nontender and Nondistended
Musculoskeletal: No Clubbing, No Cyanosis and No Edema
Skin: Warm and Dry
Neuro: Awake, Alert and Oriented
[2023-08-11 11:00] VITALS: BP 103/71; BP 93/66; BP 96/76; PULSE 109; PULSE 91
--- NOTE | 2023-08-11 11:39 | W.PN.NEPH.PH ---
Today's Communication / Plan
-
- sign off
Assessment/Plan
-
Assessment:
Gout
Hypertension (now hypotensive)
Hypothyoridism
Leukocytosis
HAGMA + mild metabolic alkalosis
Hyponatremia
DOROTEO
Plan:
- likely has hypovolemic hyponatremia and pre-renal DOROTEO (Eddy 9, trace ketones noted in urine).
- Cr has now normalized from 2 --> 1.2
- improved significantly with fluids, can d/c IVF today
- adequate K repletion per primary team
- encourage adequate PO intake
- kidneys normal in size per abd US
- hypotension noted --> avoid all antihypertensives
- lactic acid now normalized. will defer imaging of R great toe to rheumatology. this is the only joint he states did not improve with pegloticase. ?infection
Nephrology to sign off
-
-
Date of Service: August 11, 2023
CC / HPI / ROS
-
Chief Complaint:
DOROTEO, hyponatremia
History of Present Illness:
DOROTEO improved with IVF
hyponatremia improved to 130
Review of Systems:
feeling better
Labs
-
Labs:
WBC 8.6 10^3/uL (4.8-10.8) 08/11/23 05:45
RBC 3.47 10^6/uL (4.70-6.10) L 08/11/23 05:45
Hgb 12.1 g/dL (13.0-18.0) L 08/11/23 05:45
Hct 34.9 % (39.0-52.0) L 08/11/23 05:45
Plt Count 257 10^3/uL (130-400) 08/11/23 05:45
Sodium 130 mmol/L (135-145) L 08/11/23 05:45
Potassium 3.3 mmol/L (3.5-5.1) L 08/11/23 05:45
Chloride 109 mmol/L (98-107) H 08/11/23 05:45
Carbon Dioxide 18 mmol/L (22-30) L 08/11/23 05:45
BUN 29 mg/dl (9-20) H 08/11/23 05:45
Creatinine 1.2 mg/dL (0.7-1.3) 08/11/23 05:45
eGFR > 60.00 08/11/23 05:45
Glucose 89 mg/dl (70-99) 08/11/23 05:45
Calcium 6.9 mg/dl (8.4-10.2) L* 08/11/23 05:45
Phosphorus 3.5 mg/dl (2.5-4.5) 08/10/23 05:48
Albumin 1.8 g/dl (3.5-5.0) L 08/11/23 05:45
Physical Exam
-
Vital Signs:
Vital Signs
Temp Pulse Resp BP Pulse Ox
97.6 F 101 18 103/72 97
08/11/23 07:35 08/11/23 07:35 08/11/23 07:35 08/11/23 07:35 08/11/23 08:30
Cardiovascular:: Regular rate and rhythm
Respiratory:: Bilateral: CTA
Lung Excursion:: Normal
Abdomen:: Nontender and Soft
Bowel Sounds:: Normal
Extremity Edema:: None: Bilateral:
Cantor Catheter: No
[2023-08-11] MEDS: DELTASONE 30 MG PO (11:59)
[2023-08-11] MEDS: CALCIUM GLUCONATE 100 IV (11:59)
[2023-08-11 15:22] VITALS: BP 97/69
[2023-08-11 19:55] VITALS: BP 113/79; BP 114/83; BP 115/78; PULSE 111; PULSE 94; PULSE 98
[2023-08-11 23:20] VITALS: BP 109/77
[2023-08-12] MEDS: NSS with KCL 20 MEQ 1000 IV ×3 (01:33→21:40)
[2023-08-12 03:12] VITALS: BP 151/77
[2023-08-12] MEDS: SYNTHROID 88 MCG PO (05:31)
[2023-08-12 06:00] VITALS: BMI 29.2
[2023-08-12 06:39] LABS: % Basophils 0.3 % (0-2); % Eosinophils 0.1 % (0-6); % Immature Granulocytes 1.1 % (0-0.5); % Lymphocytes 14.2 % (20.5-51.1); % Monocytes 3.6 % (1.7-9.3); % Neutrophils 80.7 % (42.2-75.2); Absolute Immature Granulocytes 0.1 10^3/uL (0-0.05); Absolute Lymphocytes 1.6 10^3/uL (1.2-3.4); Absolute Monocytes 0.4 10^3/uL (0.1-0.6); Hematocrit 35.6 % (39.0-52.0); Hemoglobin 12.2 g/dL (13.0-18.0); Mean Corp Hgb Conc. 34.3 g/dL (33.0-37.0); Mean Corpuscular Hgb 35.2 pg (27.0-31.0); Mean Corpuscular Volume 102.6 fL (80.0-94.0); Mean Platelet Volume 11.3 fL (7.4-10.4); Nucleated Red Blood Cells % 0 % (-); Platelet Count 240 10^3/uL (130-400); Red Blood Cell Count 3.47 10^6/uL (4.70-6.10); Red Cell Dist. Width 14.7 % (11.5-14.5); White Blood Cell Count 11.1 10^3/uL (4.8-10.8)
[2023-08-12 07:00] VITALS: BP 105/77; BP 109/77; BP 110/80; PULSE 101; PULSE 105; PULSE 87
[2023-08-12 07:08] LABS: ALT (SGPT) 93 U/L (0-50); AST (SGOT) 124 U/L (17-59); Albumin 1.9 g/dl (3.5-5.0); Alkaline Phosphatase 229 U/L (38-126); Blood Urea Nitrogen 21 mg/dl (9-20); Calcium 7.6 mg/dl (8.4-10.2); Carbon Dioxide 17 mmol/L (22-30); Chloride 110 mmol/L (98-107); Estimated Creatinine Clearance 78 ml/min; Glucose 157 mg/dl (70-99); Potassium 4.4 mmol/L (3.5-5.1); Sodium 131 mmol/L (135-145); Total Bilirubin 1.6 mg/dl (0.2-1.3); Total Protein 5.4 g/dl (6.3-8.2); eGFR > 60.00
[2023-08-12] MEDS: PROTONIX IV 40 MG IV (08:51)
[2023-08-12] MEDS: FOLVITE 1 MG PO (08:51)
[2023-08-12] MEDS: DELTASONE 30 MG PO (08:51)
[2023-08-12] MEDS: NSS (PRESERVATIVE FREE) 10 ML IV (08:52)
--- NOTE | 2023-08-12 09:31 | W.PN.HOSP.TC ---
Addendum entered and electronically signed by Jung Rodriguez MD 08/12/23 11:36:
reviewed with Dr Otto. He would like neuro input tomorrow.
ESR 92, CRP 162 when drawn as outpt 08/01
Original Note:
Today's Communication/Plan
-
continue Prednisone 30 mg daily
recheck labs
consider pulm consult
will review situation with Rheum
complex situation
Assessment / Plan
Assessment / Plan
A/P:� Patient is a 57y M with PMH significant for hypothyroidism, hypertension and gout who presents to ED complaining of progressive weakness and fatigue x weeks / months.
DOROTEO
Hypokalemia
Hyponatremia
Hypotension
Lactic Acidosis
better 4.5-->1.1
�- Patient appeared significantly volume depleted with hypotension, weakness, etc.
this has improved with IVF
�- IVF support and electrolyte correction.
�- Nephrology evaluation for additional recommendations appreciated
�- Check urinalysis, sodium studies and urine for eosinophils.
�- Would hold further MTX and Krystexxa for now pending further evaluation.
WBC 16.4-->10.8-->8.6-steroids added-->11.1
Na 123-->127-->130-->131
K 2.9-->3.4-->3.3-->4.4
Abnormal LFTs
�- Patient with hyperbilirubinemia better 3.5-->2.5-->1.7-->1.6 and abnormal AST 140-->122-->117-->124 > ALT 75-->66-->71-->93.
�- ? med effect, adverse drug reaction / hypersensitivity reaction (delayed).
�- ? hemolytic process - follow for changes in Hgb with volume replacement. Macrocytic indices (pt denies EtOh)
Hgb 14.8-->12.0-->12.1-->12.2
�- Hold meds as noted above.
�- Liver US Diffuse fatty infiltration of the liver.
Biliary sludge in the gallbladder..
�- CPK 26.
Marked sob with any exertion
unclear as to why that would be. Consider Pulm input tomorrow pending pt response to steroids
Echocardiogram: 1.� Left ventricular cavity is small with a hyperdynamic LV systolic function
�and mild concentric left ventricular hypertrophy.� Estimated LV ejection
�fraction is 65 to 70% without regional wall motion abnormalities.� Normal
�diastolic function.
�2.� Small right ventricular size with normal systolic function.
�3.� No significant valvular abnormalities.
�4.� No pericardial effusion.
�5.� Technically difficult study
Leukocytosis / Thrombocytosis
�- Suspect this is volume mediated.
�- Follow for any fever or other focal symptoms.
�- Observe off of further abx for now.
�- Follow for changes in cell counts.
better with IVF
Hypothyroidism
�- Under-replaced.� In part due to patient taking no meds for at least one week.
�- Restart T4 supplementation at slightly higher dose.
�- Repeat TFTs in 4-6 weeks.
Benign Hypertension
�- BP generally better.� Hold amlodipine.
better 109/77-151/77, potentially resume BP Rx next 1-2 days
Severe Tophaceous Gout
�- Stable at present.
�- Patient notes that tophi are significantly improved from prior.
Hypoalbuminemia
pt starting to eat, will follow
DVT Prophylaxis: SCDs
call placed and discussed with Jerry Otto (C [phone]). Labs are very abnormal, including severe hypoalbuminemia
As per Dr. Otto, pt also had very high ESR, ?inflammatory condition of unclear etiology
Now ESR 34/CRP 23.7
continue IVF
complex situation
will repeat labs
input of consultants appreciated
starting to eat, though appetite not back to baseline
Dr. Otto believes this could be PMR and would like to start Prednisone at 30 mg daily, which has been started. Call placed to update Dr. Otto (08/11) no answer, await return call
Code Status:� Full
complex situation
Anticipated Discharge: > 48 hours
Subjective/Interval History
-
Date of Service: August 12, 2023
Has not noted any improvement in symptoms as of yet. SOB remains a major concern
Objective Data
-
Labs:
Laboratory Results
08/12/23
05:48
WBC 11.1 H
Hgb 12.2 L
Hct 35.6 L
Plt Count 240
Sodium 131 L
Potassium 4.4 D
Chloride 110 H
Carbon Dioxide 17 L
BUN 21 H
Creatinine 1.0
Glucose 157 H
Calcium 7.6 L
Total Bilirubin 1.6 H
AST 124 H
ALT 93 H
Alkaline Phosphatase 229 H
Vital Signs:
Vital Signs
Temp Pulse Resp BP Pulse Ox
97.8 F 87 18 109/77 93
08/12/23 07:00 08/12/23 07:00 08/12/23 07:00 08/12/23 07:00 08/12/23 07:00
I&O
08/11/23 08/12/23 08/13/23
05:59 06:59 06:59
Intake Total
Output Total
Balance
Review of Systems
-
History Source: Patient and Physician (reviewed with Dr. Jerry Otto)
Constitutional: Denies Fever
Respiratory: Reports No Symptoms; Denies Trouble Breathing (at rest, but becomes significantly sob with any exertion)
Cardiac: Reports No Symptoms
Abdomen/GI: Reports No Symptoms
Musculoskeletal: Reports Arthralgias and Muscle Weakness
Neuro: Reports Weakness
Physical Exam
-
General: Well Developed, Well Nourished, Appears in Distress, Pain, Conversant and Appears Chronically Ill
HEENT: Normocephalic, Atraumatic and Moist Mucous Membranes
Respiratory: Clear to Auscultation; Negative Wheezes (no wheeze on forced expiration, totally clear), Rales or Rhonchi
Cardiac: Regular Rhythm and S1/S2
GI: Soft, Nontender and Nondistended
Musculoskeletal: No Clubbing, No Cyanosis and No Edema
Skin: Warm and Dry
Neuro: Awake, Alert and Oriented
[2023-08-12 11:00] VITALS: BP 109/76
[2023-08-12 15:05] VITALS: BP 111/78
[2023-08-12 19:45] VITALS: BP 134/99; BP 137/96; BP 141/94; PULSE 101; PULSE 113; PULSE 95
[2023-08-12 22:32] VITALS: BP 139/98
--- NOTE | 2023-08-13 00:36 | W.PN.UPDATE ---
Addendum entered and electronically signed by KENNEDY Perry 08/13/23 06:39:
0430 RN reports pt with complaints of SOB, orthopnea and inability to lay on L side. Weight noted to have increased from 175 on admission to now 189.�
Plan: labs including bnp , cxr, dc IVF
529 bnp 1979, will give small dose lasix and assess response
Original Note:
Update Note
Progress Note Update
ivf due for renewal. per attending note-ivf to continue. will renew
[2023-08-13 02:59] VITALS: BP 136/88
[2023-08-13 05:12] VITALS: BMI 29.7
--- NOTE | 2023-08-13 05:22 | PTCARENOTE ---
Addendum entered by Quynh Hoffman 08/13/23 06:43:
20 mg IV lasix given per order.
Original Note:
Pt noticeably SOB, pulse ox 94 % RA RR 20, pt with complaints of orthopnea and inability to lay on L sd. Weight noted to have increased from 175 on admission to now 189. [employer] aware. Order to stop IVF, phlebotomy for AM labs notified, 2 L O2 NC
applied for comfort.
[2023-08-13 06:01] LABS: % Basophils 0.3 % (0-2); % Eosinophils 0.1 % (0-6); % Immature Granulocytes 1.5 % (0-0.5); % Lymphocytes 12.6 % (20.5-51.1); % Monocytes 4.8 % (1.7-9.3); % Neutrophils 80.7 % (42.2-75.2); Absolute Immature Granulocytes 0.2 10^3/uL (0-0.05); Absolute Lymphocytes 1.9 10^3/uL (1.2-3.4); Absolute Monocytes 0.7 10^3/uL (0.1-0.6); Absolute Neutrophils 12.1 10^3/uL (1.4-6.5); Hematocrit 35.5 % (39.0-52.0); Hemoglobin 11.9 g/dL (13.0-18.0); Mean Corp Hgb Conc. 33.5 g/dL (33.0-37.0); Mean Corpuscular Hgb 34.9 pg (27.0-31.0); Mean Corpuscular Volume 104.1 fL (80.0-94.0); Nucleated Red Blood Cells % 0 % (-); Platelet Count 283 10^3/uL (130-400); Red Blood Cell Count 3.41 10^6/uL (4.70-6.10); Red Cell Dist. Width 15.3 % (11.5-14.5)
[2023-08-13] MEDS: SYNTHROID 88 MCG PO (06:01)
[2023-08-13 06:08] LABS: NT-proBNP 1980 pg/ml
[2023-08-13 06:21] LABS: ALT (SGPT) 102 U/L (0-50); AST (SGOT) 138 U/L (17-59); Alkaline Phosphatase 248 U/L (38-126); Blood Urea Nitrogen 17 mg/dl (9-20); Calcium 7.7 mg/dl (8.4-10.2); Carbon Dioxide 17 mmol/L (22-30); Chloride 114 mmol/L (98-107); Estimated Creatinine Clearance 87 ml/min; Glucose 143 mg/dl (70-99); Iron 68 ug/dl (49-181); Potassium 4.3 mmol/L (3.5-5.1); Sodium 136 mmol/L (135-145); Total Bilirubin 1.3 mg/dl (0.2-1.3); Total Protein 5.7 g/dl (6.3-8.2); eGFR > 60.00
[2023-08-13 06:30] LABS: Percent Saturation 58 % (20-50); Total Iron Binding Capacity 117 ug/dl (261-462)
[2023-08-13] MEDS: LASIX 20 MG IV (06:36)
[2023-08-13 06:52] LABS: Erythrocyte Sed Rate 41 mm/hour (0-20)
[2023-08-13 07:05] VITALS: BP 125/94; BP 129/96; BP 136/98; PULSE 107; PULSE 109; PULSE 122
[2023-08-13 07:27] LABS: Folate 13.5 ng/ml (2.76-20); Vitamin B12 > 1000 pg/ml (239-931)
[2023-08-13] MEDS: FOLVITE 1 MG PO (08:18)
[2023-08-13] MEDS: DELTASONE 30 MG PO (08:19)
[2023-08-13] MEDS: NSS (PRESERVATIVE FREE) 10 ML IV (08:19)
[2023-08-13] MEDS: PROTONIX IV 40 MG IV (08:20)
--- NOTE | 2023-08-13 08:35 | W.PN.HOSP.TC ---
Addendum entered and electronically signed by Jung Rodriguez MD 08/13/23 18:43:
Call from Dr. Piper, is recommending Heparin 5k units q12h, high risk for DVT
Original Note:
Today's Communication/Plan
-
Pulm, Physiatry and Neuro consults
Assessment / Plan
Assessment / Plan
A/P:� Patient is a 57y M with PMH significant for hypothyroidism, hypertension and gout who presents to ED complaining of progressive weakness and fatigue x weeks / months.
On admission pt states he did not drink alcohol. Today reviewed this with him and he states up until about 2 yrs ago he did consume a significant amount of alcohol, but has totally avoided past 2 yrs
DOROTEO
Hypokalemia
Hyponatremia
Hypotension
Lactic Acidosis
better 4.5-->1.1
�- Patient appeared significantly volume depleted with hypotension, weakness, etc.
this has improved with IVF
�- IVF support and electrolyte correction.
During night he became more sob and concern was raised that he had received excess amount of fluid and IVF stopped
�- Nephrology evaluation for additional recommendations appreciated
�- Check urinalysis, sodium studies and urine for eosinophils.
�- Would hold further MTX and Krystexxa for now pending further evaluation.
WBC 16.4-->10.8-->8.6-steroids added-->11.1-->15.0
Na 123-->127-->130-->131-->136
K 2.9-->3.4-->3.3-->4.4-->4.3
Abnormal LFTs
�- Patient with hyperbilirubinemia better 3.5-->2.5-->1.7-->1.6-->1.3 and abnormal AST 140-->122-->117-->124-->138 > ALT 75-->66-->71-->93-->102.
�- ? med effect, adverse drug reaction / hypersensitivity reaction (delayed). Unsure why LFT's have remained abnormal, ?related to past Etoh
�- ? hemolytic process - follow for changes in Hgb with volume replacement. Macrocytic indices (pt denies EtOh)
Hgb 14.8-->12.0-->12.1-->12.2-->11.9
�- Hold meds as noted above.
�- Liver US Diffuse fatty infiltration of the liver.
Biliary sludge in the gallbladder..
�- CPK 26.
Marked sob with any exertion
CXR Stable mild pulmonary interstitial edema. New right basilar atelectasis and/or pneumonia.
unclear as to why that would be. Will consult Pulm. Concern about possibly PNA vs inflammatory pulm process, especially when considering rising WBC (though could be related to steroids), discussed with pulm
Echocardiogram: 1.� Left ventricular cavity is small with a hyperdynamic LV systolic function
�and mild concentric left ventricular hypertrophy.� Estimated LV ejection
�fraction is 65 to 70% without regional wall motion abnormalities.� Normal
�diastolic function.
�2.� Small right ventricular size with normal systolic function.
�3.� No significant valvular abnormalities.
�4.� No pericardial effusion.
�5.� Technically difficult study
Leukocytosis / Thrombocytosis
�- Suspect this is volume mediated.
�- Follow for any fever or other focal symptoms.
�- Observe off of further abx for now.
�- Follow for changes in cell counts.
Hypothyroidism
�- Under-replaced.� In part due to patient taking no meds for at least one week.
�- Restart T4 supplementation at slightly higher dose.
�- Repeat TFTs in 4-6 weeks.
Benign Hypertension
�- BP generally better.� Hold amlodipine.
better 109/77-151/77, currently 124/85, potentially resume BP Rx next 1-2 days
Severe Tophaceous Gout
�- Stable at present.
�- Patient notes that tophi are significantly improved from prior.
Hypoalbuminemia
pt starting to eat, will follow
1.8-->1.9-->2.0
DVT Prophylaxis: SCDs
call placed and discussed with Jerry Otto (C [phone]) 08/12. Labs are very abnormal, including severe hypoalbuminemia
As per Dr. Otto, pt also had very high ESR 90's, ?inflammatory condition of unclear etiology
ESR 34/CRP 23.7 recheck 08/12 ESR 41/crp 12.4
continue IVF
complex situation
will repeat labs
input of consultants appreciated
starting to eat, though appetite not back to baseline
Dr. Otto believed this could be PMR and would like to start Prednisone at 30 mg daily, which has been started. Call placed to update Dr. Otto (08/12).
Code Status:� Full
complex situation
Anticipated Discharge: > 48 hours
Subjective/Interval History
-
Date of Service: August 13, 2023
Became sob during night, remains very weak
Objective Data
-
Labs:
Laboratory Results
08/13/23
05:37
WBC 15.0 H
Hgb 11.9 L
Hct 35.5 L
Plt Count 283
Sodium 136
Potassium 4.3
Chloride 114 H
Carbon Dioxide 17 L
BUN 17
Creatinine 0.9
Glucose 143 H
Calcium 7.7 L
Total Bilirubin 1.3
AST 138 H
ALT 102 H
Alkaline Phosphatase 248 H
Vital Signs:
Vital Signs
Temp Pulse Resp BP Pulse Ox
97.5 F 107 24 136/98 98
08/13/23 07:05 08/13/23 07:05 08/13/23 07:05 08/13/23 07:05 08/13/23 07:05
I&O
08/12/23 08/13/23 08/14/23
06:59 06:59 06:59
Intake Total 2400 / 2400
Output Total 600 / 600
Balance 1800 / 1800
Review of Systems
-
History Source: Patient, Physician (reviewed with Dr. Werner) and Coordinated Provider
Constitutional: Denies Fever
Respiratory: Reports Trouble Breathing
Cardiac: Denies Chest Pain
Abdomen/GI: Reports No Symptoms
Musculoskeletal: Reports Muscle Weakness
Neuro: Reports No Symptoms
Physical Exam
-
General: Well Developed, Well Nourished and No Apparent Distress
HEENT: Normocephalic, Atraumatic and Moist Mucous Membranes
Respiratory: Clear to Auscultation; Negative Wheezes, Rales or Rhonchi
Cardiac: Regular Rhythm and S1/S2
GI: Soft, Nontender and Nondistended
Musculoskeletal: No Clubbing, No Cyanosis and No Edema
Neuro: Awake, Alert and Oriented
[2023-08-13 11:05] VITALS: BP 124/85
--- NOTE | 2023-08-13 12:46 | CON.NEURO4 ---
Consultation - Neurology 4
-
CONSULTING PHYSICIAN: Edgar Werner
REFERRING PHYSICIAN: Hospitalist
DICTATED BY: Edgar Werner
DATE/TIME OF REQUEST: 08/13/23
DATE/TIME OF CONSULTATION: 08/13/23
Reason for Consultation: Weakness
History of Present Illness:
Patient is a 57-year-old man with past medical history of hypothyroidism, gout, hypertension presented to hospital because of generalized weakness and falls.
Patient reports that around the beginning of July has had progressive weakness which is generalized and symmetric. It seems to have been more proximal with feet and hands involved to a lesser extent.
Patient relates that he has had some difficulty keeping his head up when going outside to sit down and smoke a cigarette he notes that he will drop his head and neck downwards. He denies any ptosis or diplopia. He has noted some dysphagia. He has
rarely been on prednisone at times with tapering doses but has not been on long-term steroids. He sees rheumatology for helping with management of gout and started Krystexxa in May. He has had gout involvement in many diffferent joints and
has seen gout improve since starting Krystexxa.
Nots facial acne like changes starting around age 37.
No known history of cancer.
Past Medical History: Hypothyroidism, gout, hypertension
Surgical History: Right hand tendon surgery
Family History: No family history of muscle or nerve disorders
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
Allergies: Penicillins
Review of Symptoms:
Patient denies any fever, headache, chest pain, shortness of breath, GI or symptoms.
Physical Exam:
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
elbow, toes, left knee, joints of the second and third digits on the right hand metacarpals. No rash seen on the skin.
Neurologic Examination:
Patient is awake and alert good historian good insight, no aphasia praxis is normal attention is normal.
Cranial nerve shows no ptosis, extraocular movements normal, no dysarthria, tongue is midline, no tongue fasciculations or atrophy noted, head neck flexion and extension is 4/5, visual confrontation is normal, pupils 3 mm equal round react light
bilaterally.
Motor examination shows bilateral thenar atrophy in the hands as well as atrophy in the gastrocnemius muscles bilateral, no fasciculations normal muscle tone. Power shows proximal more than distal weakness, deltoids and triceps 4/5, biceps 5/5 and
symmetric, hip flexion 4/5 bilaterally ankle dorsiflexion plantarflexion 5/5.
Sensory exam normal to light touch vibration bilaterally..
Reflexes are 2+ symmetric throughout and present in the ankles and patella bilaterally.
No ataxia on finger-nose testing bilaterally
Lab Results:
Impressions
1. Concern for myopathy producing proximal more than distal generalized weakness. Possibilities include from polymyositis or dermatomyositis, or drug-induced which can be seen with colchicine. Hypothyroidism can produce some myopathy as well
but probably does not explain the whole picture.
2. Significant gout history
3. Hypertension
4. Hypothyroidism
Recommendations:
1. Check EMG
2. Blood testing for DEBORAH, SSA and SSB, Aldolase,anti Christie-1 antibody, TAPE MACHINE TAILER, Anti-gibbs, Anti PM and Anti KU antibodies
3. Remain off Colchicine
4. Chest X-ray already obtained
5. Speech therapy evaluation for patient's reported dysphagia
Discussed patient care with: Patient, Dr Rodriguez
--- NOTE | 2023-08-13 13:18 | CON.RHM ---
Addendum entered and electronically signed by Jerry Otto MD 08/13/23 14:09:
No improvement over the weekend with pred 30. Continues to have significant proximal muscle weakness. Endorses LARA. Denies any excess colchicine intake or any intake since 07/30. Denies GI upset prodrome. No other medications outpatient other than
MTX, folic acid, Krystexxa, colchicine, Synthroid, amlodipine. No herbal supplements.
DOROTEO improving. Liver abnormalities persisting. Overall presentation not c/w MTX or Krystexxa toxicity. Colchicine toxicity is a possibility but his renal function was acceptable for use even during his DOROTEO peak. Usually colchicine toxicity presents
with GI upset prodrome which he denies. The treatment is supportive and clinical manifestations can last for weeks. We will hold gout treatment as an outpatient.
Agree with neuro evaluation. Would consider viral workup. Stop prednisone 30.
Rheum will sign off. Please call us back if you have any additional questions on concerns.
Jerry Otto MD, [facility]
[phone]
Original Note:
Documented by User: CHAUNCEY Gutierrez 08/13/23 13:31
Assessment/Plan
-
Overall presentation not c/w Krystexxa or MTX toxicity. Colchicne toxicity is a possibility but no excess use by history. No OTC or other med interactions noted. Presentation not c/w PMR or CTD at this time.
Consider viral workup
Agree with neuro eval
Rheum will sign off
History of Present Illness
-
Herbert is a 57 yo male, hx of gout on Krystexxa, colchicine and MTX, who presented to ED with SOB and proximal muscle weakness, also DOROTEO and transaminitis. PT continues to c/o weakness, and pain primariy at his neck - notes difficulty holding his
head up. He also notes SOB. He denies improvement of sx since starting prednisone. He denies GI upset he can correlate to taking colchicine. Notes being very careful with this medication and never taking more than 1 colchicine tablet daily. Denies
infection when these sx started. He denies drinking more than 2 glasses of wine per week since starting MTX 2 years ago.
Review of Systems
-
General: Shortness of Breath: Yes and Other: Yes (proximal muscle weakness )
Data Reviewed
Patient Allergies
Allergy/AdvReac Type Severity Reaction Status Date / Time
Penicillins Allergy Unknown Verified 08/09/23 19:45
Physical Exam
-
Constitutional: Alert and Oriented
Extremities: Other (Tophi at left elbow. Tophi at right great toe )
Neurological: Other (Strength decreased b/l at upper and lower extremities. Hand superior court judge decreased )
Psych: Appropriate Behavior and Speech Appropriate

Documented by User: Jerry Otto MD 08/13/23 13:47
Assessment/Plan
-
No improvement over the weekend with pred 30. Continues to have significant proximal muscle weakness. Endorses LARA. Denies any excess colchicine intake or any intake since 07/30. Denies GI upset prodrome. No other medications outpatient other than
MTX, folic acid, Krystexxa, colchicine, Synthroid, amlodipine. No herbal supplements.
DOROTEO improving. Liver abnormalities persisting. Overall presentation not c/w MTX or Krystexxa toxicity. Colchicine toxicity is a possibility but his renal function was acceptable for use even during his DOROTEO peak. Usually colchicine toxicity presents
with GI upset prodrome which he denies. The treatment is supportive and clinical manifestations can last for weeks. We will hold gout treatment as an outpatient.
Agree with neuro evaluation. Would consider viral workup. Stop prednisone 30.
Rheum will sign off. Please call us back if you have any additional questions on concerns.
Jerry Otto MD, [facility]
[phone]
--- NOTE | 2023-08-13 13:30 | PTCARENOTE ---
Pt ambulated to bathroom with assistance of staff, Pt having SOB and increased work of breathing,HR 130s. Pt had bowel movement and assisted back to bed. Pt Heart rate and breathing settled once at rest after a couple minutes. Oxygen being used for
comfort and recovery, sats stable on RA. MD aware, plan of care ongoing.
[2023-08-13 15:05] VITALS: BP 113/79
--- NOTE | 2023-08-13 16:22 | CM ---
Alert awake oriented patient who lives alone n an apartment #[address]It has 0 step to living area. He is independent in activities of daily living.He has a friend Tom S lives in building.He was offered VN he declined need.Will need PT OT to plan dc.He
anjelica carmonautlila.
No VN/SNF history
Levon Enriquez
PCP DR Acevedo
PLAN will need PT OT to develop dc plan.
--- NOTE | 2023-08-13 16:34 | CON.MD ---
Consultation - Medical
-
Referring Provider: Dr. Jung Rodriguez
Chief Complaint: Significant weakness
History of Present Illness: 57-year-old male with PMH (as below) presented to [facility] on 08/09/2023 with progressive weakness, dizziness, and frequent falls over several weeks with steady progression. Was taking methotrexate and Krystexxa
for tophaceous gout. Noted to have an elevated ESR and CRP as an outpatient. Noted with hypokalemia, hyponatremia, hypotension and lactic acidosis as well as elevated LFTs, leukocytosis and thrombocytosis. Echocardiogram with an EF of 65-70%
without regional wall motion abnormalities. Renal and electrolyte issues resolved with IV fluid. Started on prednisone 30 mg with no significant improvement. Seen by neurology with concern for myopathy. Lab work sent, EMG ordered.
Overall has been having more trouble with breathing. Also with trouble swallowing food particularly with water. Had some trouble with dry chicken for dinner tonight. He notes that the difficulty swallowing and weakness is pretty consistent
throughout the day. Does not get worse as he is eating or watching TV or using his phone. Has problems in the morning as much as the afternoon at night. Does not see a progressive decline with increased activity.
Past Medical History: Hypothyroidism, tophaceous gout, HTN
Procedure History: Right hand tendon surgery
Family History: Maternal grandfather with CAD and colon cancer, does not know rest of family history being adopted low Oliver Rodriguez patient
Social History:
Functional Level Premorbidly: Independent with all activities
Functional Level Currently:�� Min assist bed mobility and transfers, close supervision ambulating 5 feet forward and 5 feet backward with rolling walker. Supervision lower extremity self-care, min assist bed mobility.
Tobacco: Daily smoker
Alcohol: Denies
Drug use: Denies
Lives with: Alone
24-hour assistance available: No
Number of floors: 1
# steps to enter: 0
Driving: Yes
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
�
Allergies:
Allergy/AdvReac Type Severity Reaction Status Date / Time
Penicillins Allergy Unknown Verified 08/09/23 19:45
Review of Systems:
Constitutional: (x) abNormal _significant fatigue
Eye: (x) Normal _
Ear/Nose/Throat: (x) abNormal _trouble swallowing dry chicken and water goes down the wrong pipe at times
Respiratory: (x) abNormal _gets winded easily
Cardiovascular: (x) Normal _
Gastrointestinal: (x) Normal _
Genitourinary: (x) Normal _
Musculoskeletal: (x) abNormal _generalized weakness
Integumentary: (x) Normal _
Neurologic: (x) abNormal _Notes some mild numbness in hands and feet that he thinks is from gout
Psychiatric: (x) Normal _
Endocrine: (x) Normal _
Hematologic/Lymphatic: (x) Normal _
Allergic/Immunologic: (x) Normal _
Medications:
Active Current Visit Medication List
Category Date Time Status
0.9% Sodium Chloride [Nss (Preservative Free)] Med 08/10/23 08:00 Active
10 ml IV DAILY
Acetaminophen [Tylenol] Med 08/10/23 00:06 Active
650 mg PO Q4HPRN PRN
FOLic ACID [Folvite] Med 08/10/23 08:00 Active
1 mg PO DAILY
Flush (0.9% Sodium Chloride) [Flush (Nss)] Med 08/10/23 01:00 Active
See Dose Instructions IV PER PROTOCOL
KCl 20 Meq/0.9%Sodchl 1000 ml [NSS with KCL 20 MEQ] Med 08/10/23 00:06 Hold
20 meq in 1,000 ml IV 100 mls/hr
Levothyroxine [Synthroid] Med 08/10/23 07:00 Active
88 mcg PO DAILY@0700
Ondansetron Injectable [Zofran] Med 08/10/23 00:06 Active
4 mg IV Q6HPRN PRN
Pantoprazole [Protonix IV] Med 08/10/23 08:00 Active
40 mg IV DAILY
Prednisone [Deltasone] Med 08/11/23 11:00 Active
30 mg PO DAILY
Vitals:
Temp Pulse Resp BP Pulse Ox
98.6 F 90 20 113/79 95
08/13/23 15:05 08/13/23 15:05 08/13/23 15:05 08/13/23 15:05 08/13/23 15:05
Height 5 ft 7 in
Actual Weight 85.927 kg
Body Mass Index (BMI) 29.7
Physical Exam:
General Appearance/Observation: Well-developed, well-nourished male with mild increased rate/work of breathing.
Pain/Comfort Assessment: Denies
Mood/Affect: Appropriate
Integumentary/Operative Site: No open lesions noted during course of exam.
Eyes: Conjunctiva/Lids: normal ��� Pupils: pupils equal round and reactive to light and Accommodation
Ears/Nose/Throat: oral mucosa moist,� throat clear.������������ Lips/Teeth/Gums: normal
Neck: No muscle spasm or tenderness
Cardiovascular: Heart: regular, no murmur
Pulses: dorsalis pedis 2+ bilaterally
Respiratory: Respiratory Effort/Chest Expansion: normal ������ Auscultation: Clear to auscultation bilaterally
Gastrointestinal: abdomen not tender, no distension, normal abdominal bowel sounds
Genitourinary: No Cantor
Extremities: Edema: None Cyanosis: None Trophic changes: None
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
Neurology Exam:
Orientation: Alert, Oriented to self, Time, Place
Memory: Intact for recent medical concerns
Comprehension: Intact
Two step command: Intact
Cranial Nerves:
�� CNII: Pupillary light reflex: Intact���
�� CN III, IV, : Extraocular muscles: Intact
�� CN V: Facial Sensation at Forehead: Intact, Maxilla: Intact, Mandible: Intact
�� CN VII: Facial movement: Symmetric
�� CN VIII: Hearing: Normal
�� CN IX/X: Speech & swallow: Normal, Position of Uvula: Midline
�� CN XI: Shoulder shrug: Symmetric
�� CN XII: Tongue protrusion: Midline
Sensory:
�� Light touch: Decreased in bilateral upper and lower extremities
�� Pinprick: ABSENT over upper and lower extremities. Is intact in the face only.
Reflexes:
�� Biceps: 0 bilaterally
�� Brachioradialis: 0 bilaterally
�� Triceps: 0 bilaterally
�� Patellar: 0 bilaterally
�� Achilles: 0 bilaterally
�� Babinski: Down going bilaterally
�� Clonus: None
�� Kim: Negative bilaterally
Musculoskeletal:Motor: (Manual muscle scale 0-5)
Muscle SA EF WE EE FF FA HF KE DF EHL PF
Right� 4 4 4 4 3 3 2 4 4 4 4
Left 4 4 4 4 3+ 3 2+ 4 4 4 4
Tone: Normal in all extremities
Range of Motion: Passively within normal limits in all extremities
Lab Results
Laboratory Data
08/13/23 05:37
08/13/23 05:37
PT 19.1 Sec (11.4-14.6) H 08/11/23 05:45
INR 1.63 08/11/23 05:45
APTT 37.3 Sec (23.4-35.0) H 08/09/23 20:06
Total Bilirubin 1.3 mg/dl (0.2-1.3) 08/13/23 05:37
Direct Bilirubin 1.6 mg/dl (0.0-0.4) H 08/10/23 05:48
AST 138 U/L (17-59) H 08/13/23 05:37
ALT 102 U/L (0-50) H 08/13/23 05:37
Alkaline Phosphatase 248 U/L (38-126) H 08/13/23 05:37
Total Protein 5.7 g/dl (6.3-8.2) L 08/13/23 05:37
Albumin 2.0 g/dl (3.5-5.0) L 08/13/23 05:37
�
Diagnostic Results: as per HPI
Assessment
57-year-old RHD M PMH (tophaceous gout, HTN, hypothyroidism) with progressive muscle weakness with difficulty breathing and trouble swallowing resulting in ADL, ambulatory, speech, and swallow dysfunction.
Plan
PM&R PT/OT to increase independence with ADLs, improve balance, coordination, endurance, strength, mobility, community reintegration, decreased burden of care on others and family education.
Progressive diffuse weakness including concerns for bulbar and respiratory muscles:
-Is on Krystexxa which per side effect profile can cause difficulty breathing, difficulty swallowing, dizziness, facial swelling, flushing of the skin or rash, gout flare, muscle stiffness.
-Other concerns would be Guillain-Arthur� syndrome or other motor/sensory neuropathy.
-Neurology consulted with request for EMG which is happening tomorrow at 8 am and further blood work.
-Suggest close monitoring of respiratory status including negative inspiratory force, is fatigued with concern for muscular fatigue leading to need for further respiratory concern which may require NIF and closer monitoring at higher level of care.
-Multipodous boots with being in bed and loss of pain sensation making hi at higher risk of pressure ulcer.
-Has elevated ESR and CRP. Reportedly ESR was much higher as outpatient.
DVT Prophylaxis: Mechanical and chemoprophylaxis given weakness, spoke with Dr. Rodriguez who will start heparin.
Dysphagia: Notes choking on chicken and water going down the wrong pipe. Spoke with Dr. Rodriguez, suggest a puree with nectar thick liquid diet for now, speech consult for the morning.
Tophaceous gout: Colchicine, methotrexate, Krystexxa on hold.
HTN: Lasix, monitor closely
Macrocytic anemia: Mild at 11.9 from 12.� B12, folate normal. Low iron, high ferritin. Continue to monitor.
Leukocytosis: Currently at 15 from 11.
FEN: Diet per dysphagia as above.
Psych: Psychology consult.� Monitor mood, medications as needed.
Skin: monitor for pressure sores/rashes/lesions. At high risk with loss of pain sensation and decreased mobility.
Bowel: Colace and Senna, PRN bisacodyl.
Bladder: Time void, PVRs, PRN straight cath.
GI Prophylaxis: Pantoprazole
Pulmonary: Incentive spirometry, monitor NIF.
Safety: Continue to reinforce assistance with all transfers.
Code Status:� Full code, reviewed possibly need for vent support if he has severe breathing problem.
Dispo (date/plan/equipment needs): Home with family care.
Functional and Medical Goals: Modified Independent with ADL�s, ambulation, transfers
Discharge Destination: To be determined, given history may benefit from acute inpatient rehabilitation once medical diagnosis and plan established.
-A total of 80 minutes were spent with the patient preparing for the evaluation, obtaining history, performing examination and evaluation, counseling, data review, case management, care coordination, customer orders clerk, and EMR documentation.
Thank you for allowing me to care for your patient. Please contact me with any questions or concerns.
--- NOTE | 2023-08-13 16:57 | CON.PUL ---
Consultation
Consultation Request
Date/Time Consultation Requested: 08/13/2023 - 1230
Date/Time Consultation Performed: 08/13/2023 - 2
Requesting Provider: Dr. Rodriguez
Performing Provider: Dr. Meyer
Reason for Consultation: Abnormal CXR - PNA vs atelectasis
Medical History
-
Chief Complaint: Weakness x 2 weeks
History of Present Illness:
57-year-old male with a past medical history of gout on methotrexate and hypertension who presents with generalized weakness X 2 weeks that developed into shortness of breath. He has been on infusions for gout and believes that the medication is
causing these side effects with weakness and shortness of breath. In the ER patient was hypotensive to 94/70 and hypoxic to 93% on room air. Patient is an everyday tobacco smoker. Multiple electrolyte abnormalities were seen with hyponatremia,
hypokalemia, elevated creatinine, lactic acidosis, elevated LFTs, abnormal TFTs, elevated D-dimer, leukocytosis, and elevated platelet count. 2L IVF with NS 0.9% was given in addition to Abx (aztreonam, KCl infusion and zithromax). Initial CXR
showed mild interstitial prominence suggestive of mild interstitial edema. Patient was admitted to the hospitalist service. Urinalysis was negative for UTI. Antibiotics were stopped. Inflammatory markers were elevated with ferritin of 693, CRP
initially 23.7 on 08/10, and Christie 1 antibody was collected and is pending. C3 complement levels was collected and is reduced. C4 levels are within normal limits. Repeat CXR performed today (08/12) showed linear opacification in the right lower lobe.
There also is bilateral interstitial prominence with vascular congestion. Pulmonary now consulted for additional recommendations.
When I saw the patient he was on room air, saying that he was still feeling short of breath although he appeared to be breathing comfortably. He says that shortness of breath feels similar to what he felt about a few weeks ago. He feels like since
he has been receiving a water pill he has been feeling less bloated. He is bringing up little bit of phlegm, but it is thick and he thinks he has postnasal drip. He is doing well overall. 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 He is currently on room air with SpO2 95%.
PMHx: Gout, hypothyroidism, hypertension, hyperlipidemia
PSHx: Middle finger surgery ()
Past Medical History
Past Medical History: Other (Above as per HPI)
Past Surgical History: Other (Above as per HPI)
Social History
Tobacco: Smoker
Alcohol: None
Drug: None
Family History
Family History: Reviewed & Not Pertinent
Allergies / Home Medications
Allergies
Allergy/AdvReac Type Severity Reaction Status Date / Time
Penicillins Allergy Unknown Verified 08/09/23 19:45
Home Medications
Medication Instructions Recorded Confirmed Last Taken Type
amlodipine 5 mg tablet 5 mg PO DAILY 08/09/23 08/09/23 1 Week Ago History
~08/02/23
colchicine 0.6 mg tablet 0.6 mg PO DAILY 08/09/23 08/09/23 Unknown History
folic acid 1 mg tablet 1 mg PO DAILY 08/09/23 08/09/23 1 Week Ago History
~08/02/23
levothyroxine 75 mcg tablet 75 mcg PO DAILY 08/09/23 08/09/23 1 Week Ago History
~08/02/23
methotrexate sodium 2.5 mg tablet 15 mg PO SA 08/09/23 08/09/23 Unknown History
pegloticase 8 mg/mL intravenous 8 mg IV Q2W 08/09/23 08/09/23 08/01/23 History
solution (Krystexxa)
Review of Systems
-
History Source: Patient
All other systems: Negative unless noted (12 point ROS performed and is negative unless mentioned above.)
Vitals / Labs / Diagnostic Testing
Vital Signs
Temp Pulse Resp BP Pulse Ox
98.6 F 90 20 113/79 95
08/13/23 15:05 08/13/23 15:05 08/13/23 15:05 08/13/23 15:05 08/13/23 15:05
Lab Data
08/13/23 05:37
08/13/23 05:37
Diagnostic Testing:
Physical Exam
-
HEENT: Normocephalic and Anicteric
Cardiovascular: S1/S2 and Peripheral Edema (negative)
Respiratory: Wheeze (faintly heard bilaterally), Rales (right base), Rhonchi (negative) and Non-Labored Respirations
GI: Soft, Non Distended and Non Tender
Neurology: Awake and Alert
Skin: Warm and Dry
General: Comfortable and Fever (negative)
Assessment
-
Assessment: 57-year-old male with a past medical history of gout on methotrexate and hypertension who presents with generalized weakness X 2 weeks that developed into shortness of breath. He has been on infusions for gout and believes that the
medication is causing these side effects with weakness and shortness of breath. In the ER patient was hypotensive to 94/70 and hypoxic to 93% on room air. Patient is an everyday tobacco smoker. Multiple electrolyte abnormalities were seen with
hyponatremia, hypokalemia, elevated creatinine, lactic acidosis, elevated LFTs, abnormal TFTs, elevated D-dimer, leukocytosis, and elevated platelet count. 2L IVF with NS 0.9% was given in addition to Abx (aztreonam, KCl infusion and zithromax).
Initial CXR showed mild interstitial prominence suggestive of mild interstitial edema. Patient was admitted to the hospitalist service. Urinalysis was negative for UTI. Antibiotics were stopped. Inflammatory markers were elevated with ferritin
of 693, CRP initially 23.7 on 08/10, and Christie 1 antibody was collected and is pending. C3 complement levels was collected and is reduced. C4 levels are within normal limits. Repeat CXR performed today (08/12) showed linear opacification in the right
lower lobe. There also is bilateral interstitial prominence with vascular congestion. Pulmonary now consulted for additional recommendations.
Chronic conditions WEL[employer] T[employer]: Gout, hypothyroidism, hypertension, hyperlipidemia
Impression:
#Generalized weakness
#Shortness of breath
#Hypochloremic, hyponatremia - normalized and now Cl(-) level is elevated
#Hypokalemia - now normalized
#Acute kidney injury - likely due to pre-renal azotemia as his Cr is now normalized
#Lactic acidosis - now normalized
#Primary hyperthyroidism with elevated TSH and elevated free T4 (he does take LT4 as an outpatient)
#Tobacco use disorder
#Fatty liver
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
Plan:
- Given the increased opacification in the right lower lobe and patient being net +6 L since admission, I am hesitant to start antibiotics. Check serum procalcitonin. If patient spikes fever then would start antibiotics with cefepime/vancomycin
with adrian culture obtained prior to starting ABX. For now, continue diuretics as tolerated and monitor I/O
- continue to closely monitor SpO2 and maintain sats >90-94%
- Continue prednisone and taper as tolerated given he is wheezing on exam
- nicotine patch - can start with 7-14mg/day
- Outpatient PFTs given he is an active tobacco smoker and is at risk for COPD
- Continue nebulized bronchodilators with DuoNebs QID
- Encourage incentive spirometer
- PT/OT
- DVT ppx --> would start LMWH 40mg SQ daily
Pulmonary service will continue to follow along.
A moderate level of medical decision making was performed for this encounter; 56 minutes was spent reviewing patient's imaging, and performing pulmonary management to avoid any further worsening in his acute hypoxia.
Data:
CXR 08-09-2023:
Mild interstitial prominence, suggesting mild interstitial edema; No definite acute airspace process or pleural effusion.
CXR 08-13-2023: Stable mild pulmonary interstitial edema. New right basilar atelectasis and/or pneumonia.
Abd US 08-10-2023:
Diffuse fatty infiltration of the liver.
Biliary sludge in the gallbladder.
[2023-08-13] MEDS: REFRESH EYE DROPS (PF) 1 DROPS OPHTH (19:30)
[2023-08-13 19:36] VITALS: BP 121/80; BP 125/82; BP 130/95; PULSE 100; PULSE 109; PULSE 89
[2023-08-13] MEDS: HEPARIN 5000 UNITS SC (20:42)
[2023-08-13 23:19] VITALS: BP 118/82
[2023-08-14] VITALS (14 sets, daily range): BP systolic 107–135; BP diastolic 76–92; PULSE 97–124; BMI 29.5
[2023-08-14] MEDS: SYNTHROID 88 MCG PO (05:31)
--- NOTE | 2023-08-14 08:06 | W.PN.PUL3 ---
Today's Communication / Plan
-
Continue prednisone + IVIG as per neurology
Diurese --> I will give 40mg IV lasix tonight; trend BNP
Check procal
If pt spikes fever then consider starting Abx
Follow up CTD workup
Up OOB as tolerated
IS
Assessment
-
Assessment: 57-year-old male with a past medical history of gout on methotrexate and hypertension who presents with generalized weakness X 2 weeks that developed into shortness of breath. He has been on infusions for gout and believes that the
medication is causing these side effects with weakness and shortness of breath. In the ER patient was hypotensive to 94/70 and hypoxic to 93% on room air. Patient is an everyday tobacco smoker. Multiple electrolyte abnormalities were seen with
hyponatremia, hypokalemia, elevated creatinine, lactic acidosis, elevated LFTs, abnormal TFTs, elevated D-dimer, leukocytosis, and elevated platelet count. 2L IVF with NS 0.9% was given in addition to Abx (aztreonam, KCl infusion and zithromax).
Initial CXR showed mild interstitial prominence suggestive of mild interstitial edema. Patient was admitted to the hospitalist service. Urinalysis was negative for UTI. Antibiotics were stopped. Inflammatory markers were elevated with ferritin
of 693, CRP initially 23.7 on 08/10, and Christie 1 antibody was collected and is pending. C3 complement levels was collected and is reduced. C4 levels are within normal limits. Repeat CXR performed today (08/12) showed linear opacification in the right
lower lobe. There also is bilateral interstitial prominence with vascular congestion. Pulmonary now consulted for additional recommendations.
Chronic conditions [facility]: Gout, hypothyroidism, hypertension, hyperlipidemia
Impression:
#Generalized weakness with elevated CRP prior to being started on prednisone on 08/10 - likely due to myositis as NCS/EMG shows electrical instability in the left thigh and left trapezius muscle
#Shortness of breath - likely due to neuromuscular weakness in setting of volume overload (GGO bilaterally and RLL pleural effusion; also with edema in mesentery and SQ fat of abdomen/pelvis, further supporting volume o/l
#Hypochloremic, hyponatremia - normalized and now Cl(-) level is elevated
#Hypokalemia - now normalized
#Acute kidney injury - likely due to pre-renal azotemia as his Cr is now normalized
#Lactic acidosis - now normalized
#Primary hyperthyroidism with elevated TSH and elevated free T4 (he does take LT4 as an outpatient)
#Tobacco use disorder
#Fatty liver
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
Plan:
- Given the increased opacification in the right lower lobe with pleural effusion seen on CT chest and patient being net +6 L since admission, I am hesitant to start antibiotics as I believe he is volume overloaded --> I will give IV lasix again
tonight and monitor I/O; trend BNP; check serum procalcitonin. If patient spikes fever then would start antibiotics with cefepime/vancomycin with adrian culture obtained prior to starting ABX. For now, continue diuretics as tolerated and monitor I/O
- continue to closely monitor SpO2 and maintain sats >90-94%
- Continue prednisone; initially OCS was started due to pt was wheezing on exam; Neurology raised dose to 60 mg given concern for myopathy with proximal >distal generalized weakness with differential including polymyositis/dermatomyositis,
drug-induced myopathy versus hypothyroidism; NCS/EMG also abnormal in left thigh and left trapezius muscles with electrical instability
- Check NIF and VC x 3 days to assure no impending respiratory failure
- Rheumatology on board --> recs appreciated
- nicotine patch - can start with 7-14mg/day
- Continue IVIG x 5 days per neurology
- Outpatient PFTs given he is an active tobacco smoker and is at risk for COPD
- Continue nebulized bronchodilators with DuoNebs QID
- Encourage incentive spirometer
- PT/OT
- DVT ppx --> would start LMWH 40mg SQ daily
Pulmonary service will continue to follow along.
A moderate level of medical decision making was performed for this encounter; 56 minutes was spent reviewing patient's imaging, and performing pulmonary management to avoid any further worsening in his acute hypoxia.
Data:
CT Chest/Abdomen/Pelvis 08-14-2023:
IMPRESSION:
1). Small right-sided pleural effusion with associated compressive atelectasis at the posterior right lung base
2). Minimal left pleural effusion
3).There is patchy groundglass airspace disease throughout both lungs, most prominent in the upper lobes which may reflect acute or chronic inflammatory airspace disease.
4). Atherosclerosis.
5). Diffuse fatty infiltration of the liver.
6). Small volume edema in the mesentery
7). Multilevel degenerative disc disease.
8). Old 10% compression fracture of the superior endplate of L4
9).There is mild edema versus inflammatory stranding in the subcutaneous fat of the abdomen and pelvis
CXR 08-09-2023:
Mild interstitial prominence, suggesting mild interstitial edema; No definite acute airspace process or pleural effusion.
CXR 08-13-2023: Stable mild pulmonary interstitial edema. New right basilar atelectasis and/or pneumonia.
Abd US 08-10-2023:
Diffuse fatty infiltration of the liver.
Biliary sludge in the gallbladder.
Subjective Data
-
Date of Service:
Date of Service: August 14, 2023
Chief Complaint: Pulmonary Follow Up
Subjective:
Patient seen and evaluated today. Patient underwent nerve conduction studies with EMG today showing reduced motor unit amplitude, reduced motor unit duration and increased polyphasic potentials. Patient feels similar to yesterday with shortness of
breath, but denies chest pain, headache, fevers or chills.
Review of Systems
General: Other (Negative unless mentioned above)
Objective Data
Data Reviewed
Vital Signs / I&O / Oxygen:
Vital Signs
Temp Pulse Resp BP Pulse Ox
97.6 F 90 18 118/81 95
08/14/23 07:00 08/14/23 07:00 08/14/23 07:00 08/14/23 07:00 08/14/23 08:14
Intake and Output
08/13/23 08/14/23 08/15/23
06:59 06:59 06:59
Intake Total 2400 / 2400 960 / 960
Output Total 600 / 600 1200 / 1200
Balance 1800 / 1800 -240 / -240
SaO2 95
Nasal Cannula flow liters per 2
minute
Physical Exam
HEENT: Normocephalic and Anicteric
Cardiovascular: S1-S2 and Peripheral Edema (negative)
Respiratory: Wheeze (faintly heard bilaterally), Crackles (Right base) and Rhonchi (negative)
GI: Soft, Non Distended and Non Tender
Neurology: Awake and Alert
Skin: Warm and Dry
Labs/Micro/Reports
Lab Data
08/13/23 05:37
08/13/23 05:37
Microbiology
08/13/23 08:12 Blood/Venous Blood Culture - Preliminary
No Growth in 24 hours- Final report to follow
[2023-08-14] MEDS: HEPARIN 5000 UNITS SC ×2 (08:22→20:25)
[2023-08-14] MEDS: FOLVITE 1 MG PO (08:23)
[2023-08-14] MEDS: DELTASONE PO (08:23)
[2023-08-14] MEDS: FLUSH (NSS) 1 FLUSH IV ×3 (08:24→15:10)
[2023-08-14] MEDS: NSS (PRESERVATIVE FREE) 10 ML IV (08:24)
[2023-08-14] MEDS: PROTONIX IV 40 MG IV (08:24)
[2023-08-14] MEDS: DELTASONE 60 MG PO (10:01)
--- NOTE | 2023-08-14 10:27 | W.PN.NEURO.1 ---
Today's Communication / Plan
-
Await blood testing for DEBORAH, SSA and SSB, Aldolase,anti Christie-1 antibody, TOOL HONING MACHINE SET UP OPERATOR, Anti-gibbs, Anti PM and Anti KU antibodies
Increase prednisone from 40 mg to dosing of 60 mg
Initiate immunoglobulin 400 mg/kg/ 5-day course
Check CT chest abdomen pelvis
Neuro Assessment/Plan
Assessment
Impressions
1. Concern for myopathy producing proximal more than distal generalized weakness. Possibilities include from polymyositis or dermatomyositis, or drug-induced which can be seen with colchicine. Hypothyroidism can produce some myopathy as well
but probably does not explain the whole picture.
2. Significant gout history
3. Hypertension
4. Hypothyroidism
Plan
Recommendations:
Await blood testing for DEBORAH, SSA and SSB, Aldolase,anti Christie-1 antibody, TOOL HONING MACHINE SET UP OPERATOR, Anti-gibbs, Anti PM and Anti KU antibodies
Increase prednisone from 40 mg to dosing of 60 mg
Initiate immunoglobulin 400 mg/kg/ 5-day course
Remain off Colchicine
Check CT chest abdomen pelvis
Speech therapy evaluation for patient's reported dysphagia
Rehabilitation evaluations
Will follow
Subjective/Objective
Subjective Data
Date of Service: August 14, 2023
Continued weakness
Objective Data
Vital Signs
Temp Pulse Resp BP Pulse Ox
36.4 C 90 18 118/81 95
08/14/23 07:00 08/14/23 07:00 08/14/23 07:00 08/14/23 07:00 08/14/23 08:14
Lab Results
08/13/23 05:37
08/13/23 05:37
PT 19.1 Sec (11.4-14.6) H 08/11/23 05:45
INR 1.63 08/11/23 05:45
APTT 37.3 Sec (23.4-35.0) H 08/09/23 20:06
Sodium 136 mmol/L (135-145) 08/13/23 05:37
Potassium 4.3 mmol/L (3.5-5.1) 08/13/23 05:37
BUN 17 mg/dl (9-20) 08/13/23 05:37
Glucose 143 mg/dl (70-99) H 08/13/23 05:37
Calcium 7.7 mg/dl (8.4-10.2) L 08/13/23 05:37
Phosphorus 3.5 mg/dl (2.5-4.5) 08/10/23 05:48
Wsf-P-Scbomhvzszq Pept 1980 pg/ml 08/13/23 05:37
Vitamin B12 > 1000 pg/ml (239-931) H 08/13/23 05:37
Patient Allergies
Penicillins Allergy (Verified 08/09/23 19:45)
Unknown
Review of Systems
-
History Source: Patient
All other systems: Reviewed and negative
EENT: Swallowing Difficulty
Respiratory: Trouble Breathing
Neuro: Weakness
Physical Exam
-
General: No Apparent Distress and Appears Stated Age
Eyes: Round OU, [place] Conjunctivae and No Ptosis
HEENT: Anicteric and Moist Mucous Membranes
Neck: Full Range of Motion
Respiratory: No Dyspnea
Cardiac: No JVD
GI: Normal Bowel Sounds and Soft
Skin: Other (Facial rash suggestive of acromegaly)
Extremities: No Clubbing, No Cyanosis and No Edema
Psych: Intact Judgement/Insight
Extended Neurological Exam
Mood & Affect: Mood Unremarkable and Affect Unremarkable
Attention Span & Concentration: Awake, Alert and Interactive
Memory: Unremarkable
Tremor: Hand Tremor Absent and Head Tremor Absent
Speech: Quality Unremarkable and Quantity Unremarkable
Cranial Nerve II: Left Eye: Pupillary Size Unremarkable and Visual Barnhart Grossly Intact
Cranial Nerve II: Right Eye: Pupillary Size Unremarkable and Visual Barnhart Grossly Intact
Cranial Nerves III, IV, : Extraocular Movement: Grossly Intact
Cranial Nerve VII: Facial Symmetry: Normal Facial Symmetry
Cranial Nerve XI: Shoulder Shrug: Reduced on Right and Reduced on Left
Cranial Nerve XII: Tongue Protusion: Midline
Muscle Strength, Overall: Reduced (4- out of 5 neck flexors, 3 out of 5 neck extensors, 4 out of 5 bilateral lower extremities proximally, full distally and in hands distally full)
Muscle Bulk & Tone: Bulk Unremarkable and Tone Unremarkable
Coordination: Reaches for Objects without Difficulty
Gait & Station: Unable to Assess
Data Reviewed
-
Labs: Ordered and Report Reviewed
EMG: Report Reviewed
Reviewed with: Physician, Nurse Practioner and Patient
Old Records: Summarized
Past History
Past History
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
Social History
Tobacco: Non-smoker
Alcohol: None
Medications
-
Medications:
Generic Name Dose Route Start Last Admin
Trade Name Freq PRN Reason Stop Dose Admin
Acetaminophen 650 mg 08/10/23 00:06
Acetaminophen 325 Mg Tablet PO 09/07/23 00:05
Q4HPRN PRN
Mild Pain / Temp > 101
Artificial Tears 1 drops 08/13/23 18:46 08/13/23 19:30
Artificial Tears Pf (Refresh) 10 Drop Droperette OPHTH 09/10/23 18:45 1 drops
Q4HPRN PRN Administration
DRY EYES
Bisacodyl 10 mg 08/13/23 18:54
Bisacodyl 5 Mg Enteric Coated Tablet PO 09/10/23 18:53
DAILYPRN PRN
constipation
Bisacodyl 10 mg 08/13/23 18:54
Bisacodyl 10 Mg Rectal Suppository RECTAL 09/10/23 18:53
HSPRN PRN
if no BM with oral bisacodyl
Docusate Sodium 100 mg 08/13/23 20:00 08/14/23 09:07
Docusate Sodium 100 Mg Capsule PO 09/10/23 19:59 Not Given
BID MELISSA
Folic Acid 1 mg 08/10/23 08:00 08/14/23 08:23
Folic Acid 1 Mg Tablet PO 09/07/23 07:59 1 mg
DAILY MELISSA Administration
Heparin Sodium 5,000 units 08/13/23 20:00 08/14/23 08:22
Heparin 5,000 Units/Ml 1 Ml Vial SC 09/10/23 19:59 5,000 units
Q12 MELISSA Administration
Immune Globulin 25 gram 08/14/23 10:20
Immune Globulin (Calculator Uses Ibw) - Pharmacy To Place Order 0.4 gram/kg (25 gram) 08/14/23 10:21
IV
DIRECTED ONE
Levothyroxine Sodium 88 mcg 08/10/23 07:00 08/14/23 05:31
Levothyroxine 88 Mcg Tablet PO 09/07/23 06:59 88 mcg
DAILY@0700 MELISSA Administration
Ondansetron HCl 4 mg 08/10/23 00:06
Ondansetron 4 Mg/2 Ml Vial IV 09/07/23 00:05
Q6HPRN PRN
nausea and vomiting
Pantoprazole Sodium 40 mg 08/10/23 08:00 08/14/23 08:24
Protonix 40 Mg Iv Push IV 09/07/23 07:59 40 mg
DAILY MELISSA Administration
Prednisone 60 mg 08/14/23 10:00 08/14/23 10:01
Prednisone 20 Mg Tablet PO 09/11/23 09:59 60 mg
DAILY MELISSA Administration
Sennosides 17.2 mg 08/14/23 12:00
Sennosides (Senokot) 8.6 Mg Tablet PO 09/11/23 11:59
NOON MELISSA
Sodium Chloride 0 flush 08/10/23 01:00 08/14/23 08:24
Sodium Chloride 0.9% (Flush) Syringe IV 09/07/23 00:59 1 flush
PER PROTOCOL MELISSA Administration
Sodium Chloride 10 ml 08/10/23 08:00 08/14/23 08:24
Sodium Chloride 0.9% (Preservative Free) 10 Ml Vial IV 09/07/23 07:59 10 ml
DAILY MELISSA Administration
[2023-08-14] MEDS: OMNIPAQUE 50 ML PO (11:05)
--- NOTE | 2023-08-14 11:30 | W.PN.REHAB ---
Today's Communication / Plan
-
Doing better today. Breathing and swallowing improved. Planned for IVIG and increased prednisone, await official EMG report.
Appears better this am, home with home health anticipated.
Assessment/Function
-
Assessment:
General Appearance/Observation: Well-developed, well-nourished male with slight increased rate/work of breathing.
Pain/Comfort Assessment: Denies
Mood/Affect: Appropriate
Integumentary/Operative Site: No open lesions noted during course of exam.
Eyes: Conjunctiva/Lids: normal ��� Pupils: pupils equal round
Cardiovascular: Heart: regular, no murmur
Pulses: dorsalis pedis 2+ bilaterally
Respiratory: Respiratory Effort/Chest Expansion: normal ������ Auscultation: Clear to auscultation bilaterally
Gastrointestinal: abdomen not tender, no distension, normal abdominal bowel sounds
Genitourinary: No Cantor
Extremities:�Edema: None�Cyanosis: None�Trophic�changes: None
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
Neurology Exam:
Orientation: Alert, Oriented to self, Time, Place
Memory: Intact for recent medical concerns
Comprehension: Intact
Two step command: Intact
Cranial Nerves:
�� CN V:�Facial Sensation�at�Forehead: Intact,�Maxilla: Intact,�Mandible: Intact
�� CN VII:�Facial movement: Symmetric
�� CN VIII:�Hearing: Normal
�� CN IX/X:�Speech & swallow: Normal,�Position of Uvula: Midline
�� CN XI:�Shoulder shrug: Symmetric
�� CN XII:�Tongue protrusion: Midline
Sensory:
�� Light touch: Decreased in bilateral upper and lower extremities
Musculoskeletal:Motor: (Manual muscle scale 0-5)
� � �
Muscle� � � ���SA�� � ���EF� � � ���WE� � � ���EE� � � ���FF� � � ���FA� � � ���HF� � � ���KE� � � ���DF� � � ���EHL� � � ���PF�� �
� � ��Right� ���� � � � 4� ���4� � � � � ���4� � � � � ���4�� � � � ���3�� � � � ���3�� � � � ���2�� � � � ���4�� � � � ���4�� � � � ���4�� � � � ���4� � � �
� � ��Left�� � ���4� � � ���4�� � � ���4�� � � ���4� � � ���3+� � � ���3� � � ���2+� � � ���4� � � ���4� � � ���4� � � ���4�� �
� � � �� �� �� �� �� �� �� �� �� �� �� �
Tone: Normal in all extremities
Range of Motion: Passively within normal limits in all extremities
Function:
Bed Mobility: Supervision
Transfers: Supervision
Ambulation:
Steps:
ADL's:
Plan
-
Assessment
57-year-old RHD [facility] (tophaceous gout, HTN, hypothyroidism) with progressive muscle weakness with difficulty breathing and trouble swallowing resulting in ADL, ambulatory, speech, and swallow dysfunction.
Plan
PM&R�PT/OT to increase independence with ADLs, improve balance, coordination, endurance, strength, mobility, community reintegration, decreased burden of care on others and family education.
Progressive diffuse weakness including concerns for bulbar and respiratory muscles:
-Is on Krystexxa which per side effect profile can cause difficulty breathing, difficulty swallowing, dizziness, facial swelling, flushing of the skin or rash, gout flare, muscle stiffness.
-Other concerns would be Guillain-Arthur� syndrome or other motor/sensory neuropathy.
-Neurology consulted with request for EMG done this am.
-Monitor NIF.
-Multipodous boots with being in bed and loss of pain sensation making hi at higher risk of pressure ulcer.
-Has elevated ESR and CRP.� Reportedly ESR was much higher as outpatient.
DVT Prophylaxis: Mechanical and heparin.
Dysphagia:�Notes choking on chicken and water going down the wrong pipe.� Wants regular diet, speech consult pending
Tophaceous gout: Colchicine, methotrexate, Krystexxa on hold.
HTN: Lasix, monitor closely
Macrocytic anemia: Mild at 11.9 from 12.� B12, folate normal.� Low iron, high ferritin.� Continue to monitor.
Leukocytosis:�15 from 11.
FEN: Diet per dysphagia as above.
Psych: Psychology consult.� Monitor mood, medications as needed.
Skin: monitor for pressure sores/rashes/lesions.� At high risk with loss of pain sensation and decreased mobility.
Bowel: Colace and Senna, PRN bisacodyl.
Bladder: Time void, PVRs, PRN straight cath.
GI Prophylaxis: Pantoprazole
Pulmonary: Incentive spirometry, monitor NIF.
Safety: Continue to reinforce assistance with all transfers.
Code Status:� Full code, reviewed possibly need for vent support if he has severe breathing problem.
Dispo�(date/plan/equipment needs): Home with family care.
Appears better this am, home with home health anticipated.
Subjective
-
Patient seen and examined this morning.� Overall feeling OK. Breathing is a little bit easier this morning. Hoping to pass swallow test for regular diet.� Had EMG test and starting on new medication with increased dose of steriods. No choking or
coughing concerns with puree and nectar thick liquids. Denies any fevers, chills, chest pain, nausea, vomiting, abdominal pain, dysuria, or diarrhea.� Tolerating therapy.
Vital Signs / Labs
-
Vital Signs and Labs:
Temp Pulse Resp BP Pulse Ox
97.2 F 86 18 113/85 95
08/14/23 17:35 08/14/23 17:35 08/14/23 17:35 08/14/23 17:35 08/14/23 17:35
08/13/23 05:37
08/13/23 05:37
--- NOTE | 2023-08-14 11:53 | W.PN.HOSP.TC ---
Addendum entered and electronically signed by Jung Rodriguez MD 08/14/23 12:19:
Just received input from [facility], ok for regular, thin liquid diet, will change
Original Note:
Today's Communication/Plan
-
started Prednisone 60 mg daily
IVIG
Chest/Abd/Pelvis CT ordered
Assessment / Plan
Assessment / Plan
A/P:� Patient is a 57y M with PMH significant for hypothyroidism, hypertension and gout who presents to ED complaining of progressive weakness and fatigue x weeks / months.
On admission pt states he did not drink alcohol. On 08/12 reviewed this with him and he states up until about 2 yrs ago he did consume a significant amount of alcohol, but has totally avoided past 2 yrs
DOROTEO
better, BUN/Creat 50/2.0-->17/0.9
Hypokalemia
resolved 2.9-->3.3-->4.3
Hyponatremia
better 123-->130-->136
Hypotension
Lactic Acidosis
better 4.5-->1.1
�- Patient appeared significantly volume depleted with hypotension, weakness, etc.
this has improved with IVF
�- IVF support and electrolyte correction.
During 08/11- night he became more sob and concern was raised that he had received excess amount of fluid and IVF stopped
Abnormal LFTs
�- Patient with hyperbilirubinemia better 3.5-->2.5-->1.7-->1.6-->1.3 and abnormal AST 140-->122-->117-->124-->138 > ALT 75-->66-->71-->93-->102.
�- ? med effect, adverse drug reaction / hypersensitivity reaction (delayed). Unsure why LFT's have remained abnormal, ?related to past Etoh
�- ? hemolytic process - follow for changes in Hgb with volume replacement. Macrocytic indices (pt denies EtOh)
Hgb 14.8-->12.0-->12.1-->12.2-->11.9
�- Hold meds as noted above.
�- Liver US Diffuse fatty infiltration of the liver.
Biliary sludge in the gallbladder..
�- CPK 26.
Marked sob with any exertion
CXR Stable mild pulmonary interstitial edema. New right basilar atelectasis and/or pneumonia.
unclear as to why that would be. Will consult Pulm. Concern about possibly PNA vs inflammatory pulm process, especially when considering rising WBC (though could be related to steroids), discussed with pulm
Echocardiogram: 1.� Left ventricular cavity is small with a hyperdynamic LV systolic function
�and mild concentric left ventricular hypertrophy.� Estimated LV ejection
�fraction is 65 to 70% without regional wall motion abnormalities.� Normal
�diastolic function.
�2.� Small right ventricular size with normal systolic function.
�3.� No significant valvular abnormalities.
�4.� No pericardial effusion.
�5.� Technically difficult study
Leukocytosis / Thrombocytosis
Currently believe related to steroids, will follow
�- Suspect this is volume mediated.
�- Follow for any fever or other focal symptoms.
�- Observe off of further abx for now.
�- Follow for changes in cell counts.
Hypothyroidism
�- Under-replaced.� In part due to patient taking no meds for at least one week.
�- Restart T4 supplementation at slightly higher dose.
�- Repeat TFTs in 4-6 weeks.
Benign Hypertension
�- BP generally better.� Hold amlodipine.
better 109/77-151/77, currently 118/81, potentially resume BP Rx next 1-2 days
Severe Tophaceous Gout
�- Stable at present.
�- Patient notes that tophi are significantly improved from prior.
Hypoalbuminemia
pt starting to eat, will follow
1.8-->1.9-->2.0
DVT Prophylaxis: now on Heparin 5k q12h
call placed and discussed with Jerry Otto (C [phone]) 08/12. Labs are very abnormal, including severe hypoalbuminemia
As per Dr. Otto, pt also had very high ESR 90's, ?inflammatory condition of unclear etiology
ESR 34/CRP 23.7 recheck 08/12 ESR 41/crp 12.4
continue IVF
complex situation
will repeat labs
input of consultants appreciated
starting to eat, though appetite not back to baseline
Input of neuro/Physiatry appreciated. EMG apparently consistent with Myositis and Prednisone increased to 60 mg daily with plan to start IVIG for 5 days
Code Status:� Full
complex situation
Anticipated Discharge: > 48 hours
Subjective/Interval History
-
Date of Service: August 14, 2023
Awake, alert, hopeful that he will respond to treatment
Objective Data
-
Vital Signs:
Vital Signs
Temp Pulse Resp BP Pulse Ox
97.6 F 90 18 118/81 95
08/14/23 07:00 08/14/23 07:00 08/14/23 07:00 08/14/23 07:00 08/14/23 08:14
I&O
08/13/23 08/14/23 08/15/23
06:59 06:59 06:59
Intake Total 2400 / 2400 960 / 960
Output Total 600 / 600 1200 / 1200
Balance 1800 / 1800 -240 / -240
Review of Systems
-
History Source: Patient, Physician (reviewed with Dr. Otto) and Coordinated Provider
Constitutional: Denies Fever
Respiratory: Reports Trouble Breathing
Cardiac: Denies Chest Pain
Abdomen/GI: Reports No Symptoms
Musculoskeletal: Reports Muscle Weakness
Neuro: Reports No Symptoms
Physical Exam
-
General: Well Developed, Well Nourished and No Apparent Distress
HEENT: Normocephalic, Atraumatic and Moist Mucous Membranes
Respiratory: Clear to Auscultation; Negative Wheezes, Rales or Rhonchi
Cardiac: Regular Rhythm and S1/S2
GI: Soft, Nontender and Nondistended
Musculoskeletal: No Clubbing, No Cyanosis, No Edema and Other (upper and lower extremities remain weak, DTR 0/4 all extremities. Able to pull hand off shoulder bilaterally with minimal exertion)
Neuro: Awake, Alert, Oriented and AO x 3; Negative No Motor Deficits (remains very weak) or Tremors
Psych: Calm; Negative Confused or Agitated
--- NOTE | 2023-08-14 12:28 | PTOTSP ---
Dysphagia Evaluation
Patient without signs concerning for oral/pharyngeal dysphagia or aspiration at this time. He denied any acute dysphagia/aspiration signs but verbalized understanding to monitor for and notify medical staff if any of these signs are present.
Recommend:
1. Regular, Thin Liquids
2. Medications as best tolerated
3. General aspiration precautions (i.e., small sips/bites, slow rate, chew foods well)
No further dysphagia therapy warranted at this time. If patient with any change in dysphagia symptoms, or if there is concern for silent aspiration based on clinical picture, please reconsult.
[2023-08-14] MEDS: TYLENOL 650 MG PO (14:15)
[2023-08-14] MEDS: BENADRYL 25 MG IV (14:15)
[2023-08-14] MEDS: GAMMAGARD 200 IV (15:10)
--- NOTE | 2023-08-14 15:27 | W.PN.RHM ---
Addendum entered and electronically signed by Jerry Otto MD 08/14/23 17:24:
I have reviewed the midlevel's assessment and plan with the following additions:
EMG/NCS concerning for myositis. Exam without Gottron papules. No shawl sign, mechanics hands or holster sign appreciated. Some discoloration noted over MCP 2-3 on the R at the sites of resolved tophi. Does have chronic facial erythema for years
which was previously felt to be rosacea/acne. Possibly related to DM? Did respond in the past to doxycycline.
Initial CK on admission normal but can be normal in certain patients with DM. Agree with myositis workup and adrian-scan. Recommend adding comprehensive myositis panel and TPMT level. 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
favor MTX as he was already on this outpatient and has evidence of persistent liver dysfunction. Imuran would be a better choice that can be started outpatient
Neuro has recommended increasing pred to 60 and starting IVIG. We will follow along with his treatment course.
Jerry Otto MD, [facility]
[phone]
Original Note:
Today's Communication / Plan
-
Assessment/Plan
-
Concerns for dermatomyositis -pt does have chronic facial erythema/acne. No clear shawl sign, Gottron papules or holster sign. Some myositis antibodies pending.�
Continue 60 and starting 5 days of IVIG.
Pending CT chest/abdomen/pelvis.
Recommend full myositis panel
Will follow peripherally given neuro is taking the lead.�
Subjective Data
-
Pt is a 57 yo male who presented to ED with SOB and weakness. Through course pt has continued to have proximal muscle weakness and SOB, new concerns for myositis s/p recent EMG. Pt denies rash, aside from long standing facial erythema and rosacaea.
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 Denies dysphagia.
Objective Data
-
Vital Signs
Temp Pulse Resp BP Pulse Ox
97.5 F 89 18 123/89 96
08/14/23 15:09 08/14/23 15:09 08/14/23 15:09 08/14/23 15:09 08/14/23 15:09
Microbiology Results
08/13/23 08:12 Blood/Venous Blood Culture - Preliminary
No Growth in 24 hours- Final report to follow
Laboratory Data
08/13/23 05:37
08/13/23 05:37
ESR 41 mm/hour (0-20) H 08/13/23 05:37
Uric Acid 1.0 mg/dl (3.5-8.5) L 08/10/23 00:15
C-Reactive Protein 12.40 mg/L (0.0-10.00) H 08/13/23 05:37
Urine Color [place] 08/10/23 03:41
Urine Clarity Clear (Clear) 08/10/23 03:41
Urine pH 6.0 (5.0-9.0) 08/10/23 03:41
Ur Specific [place] 1.015 (<1.030) 08/10/23 03:41
Urine Ketones Trace (Negative) A 08/10/23 03:41
Urine Occult Blood Negative (Negative) 08/10/23 03:41
Urine Nitrite Negative (Negative) 08/10/23 03:41
Urine Bilirubin 1+ (Negative) A 08/10/23 03:41
Urine Urobilinogen 2+ (Neg - 1+) A 08/10/23 03:41
Ur Leukocyte Esterase Negative (Negative) 08/10/23 03:41
Urine Albumin Negative (Neg - Trace) 08/10/23 03:41
Complement C3 61 mg/dl (88-165) L 08/10/23 00:15
Complement C4 14.8 mg/dl (14-44) 08/10/23 00:15
Review of Systems
-
General: Shortness of Breath: Yes and Other: Yes (weakness)
Physical Exam
-
Constitutional: Alert and Oriented
Skin: Other (erythema and small pustules scattered across face; purple discoloration over right 2nd and 3rd MCP )
Psych: Appropriate Behavior and Speech Appropriate
--- NOTE | 2023-08-14 15:50 | PTCARENOTE ---
Pt AAO x3, MEEK; OOB to chair/ambulatory in room/to BR with assist x1/walker; tires easily. VSS. Telemetry:NSR/sinus tachy to 140's with OOB activity. On room air- pulse ox 94%, pt denies SOB; has (+) LARA/tachypnea with any activity. Abd large,
soft, to start reg diet; was NPO for abd /pelvic CT scan. Voiding in urinal/BR without difficulty. IvIg currently infusing via Lt hand without sx of infiltration; VS being monitored q 30 minutes. resting in bed at present, no c/o. Will continue
to monitor.
[2023-08-14] MEDS: GAMMAGARD 50 IV (17:28)
--- NOTE | 2023-08-14 17:54 | PTCARENOTE ---
IvIg infusion completed without adverse effects, VSS, pt resting comfortably. Will continue to monitor.
[2023-08-14] MEDS: LASIX 40 MG IV (20:13)
[2023-08-15] VITALS (12 sets, daily range): BP systolic 108–137; BP diastolic 71–93; PULSE 89–114; BMI 29.0
[2023-08-15] MEDS: SYNTHROID 88 MCG PO (06:08)
[2023-08-15 07:34] LABS: % Basophils 0.4 % (0-2); % Eosinophils 0.2 % (0-6); % Immature Granulocytes 1.8 % (0-0.5); % Lymphocytes 15.8 % (20.5-51.1); % Monocytes 4.3 % (1.7-9.3); % Neutrophils 77.5 % (42.2-75.2); Absolute Basophils 0.1 10^3/uL (0-0.2); Absolute Immature Granulocytes 0.2 10^3/uL (0-0.05); Absolute Monocytes 0.6 10^3/uL (0.1-0.6); Absolute Neutrophils 9.8 10^3/uL (1.4-6.5); Hematocrit 33.2 % (39.0-52.0); Hemoglobin 11.2 g/dL (13.0-18.0); Mean Corp Hgb Conc. 33.7 g/dL (33.0-37.0); Mean Corpuscular Hgb 34.6 pg (27.0-31.0); Mean Corpuscular Volume 102.5 fL (80.0-94.0); Nucleated Red Blood Cells % 0.2 % (-); Red Blood Cell Count 3.24 10^6/uL (4.70-6.10); Red Cell Dist. Width 15.1 % (11.5-14.5); White Blood Cell Count 12.7 10^3/uL (4.8-10.8)
[2023-08-15 07:48] LABS: ALT (SGPT) 170 U/L (0-50); AST (SGOT) 160 U/L (17-59); Albumin 2.1 g/dl (3.5-5.0); Alkaline Phosphatase 217 U/L (38-126); Blood Urea Nitrogen 16 mg/dl (9-20); Calcium 7.4 mg/dl (8.4-10.2); Carbon Dioxide 18 mmol/L (22-30); Chloride 113 mmol/L (98-107); Estimated Creatinine Clearance 78 ml/min; Glucose 94 mg/dl (70-99); Potassium 3.6 mmol/L (3.5-5.1); Sodium 138 mmol/L (135-145); Total Bilirubin 0.9 mg/dl (0.2-1.3); eGFR > 60.00
[2023-08-15 07:58] LABS: Procalcitonin 0.43 ng/ml (0.0-0.25)
[2023-08-15] MEDS: FOLVITE 1 MG PO (08:09)
[2023-08-15] MEDS: HEPARIN 5000 UNITS SC ×2 (08:09→20:58)
[2023-08-15] MEDS: DELTASONE 60 MG PO (08:09)
[2023-08-15] MEDS: PROTONIX IV 40 MG IV (08:10)
[2023-08-15] MEDS: FLUSH (NSS) 1 FLUSH IV ×4 (08:10→14:35)
[2023-08-15] MEDS: NSS (PRESERVATIVE FREE) 10 ML IV (08:10)
[2023-08-15 08:29] LABS: Mean Platelet Volume 11.6 fL (7.4-10.4); Platelet Count 221 10^3/uL (130-400)
--- NOTE | 2023-08-15 08:35 | W.PN.PUL3 ---
Today's Communication / Plan
-
Continue systemic steroids (currently being pulsed) + IVIG as per neurology
Diurese --> I gave 40mg IV lasix last night; trend BNP
If patient develops additional/future urination difficulty, then would empirically start Flomax
Procal: 0.43 --> no need for Abx at this time
If pt spikes fever then consider starting Abx
Follow up CTD workup (C3: 61 (low)); C4: 14.8 (WNL)
Up OOB as tolerated
IS
Assessment
-
Assessment: 57-year-old male with a past medical history of gout on methotrexate and hypertension who presents with generalized weakness X 2 weeks that developed into shortness of breath. He has been on infusions for gout and believes that the
medication is causing these side effects with weakness and shortness of breath. In the ER patient was hypotensive to 94/70 and hypoxic to 93% on room air. Patient is an everyday tobacco smoker. Multiple electrolyte abnormalities were seen with
hyponatremia, hypokalemia, elevated creatinine, lactic acidosis, elevated LFTs, abnormal TFTs, elevated D-dimer, leukocytosis, and elevated platelet count. 2L IVF with NS 0.9% was given in addition to Abx (aztreonam, KCl infusion and zithromax).
Initial CXR showed mild interstitial prominence suggestive of mild interstitial edema. Patient was admitted to the hospitalist service. Urinalysis was negative for UTI. Antibiotics were stopped. Inflammatory markers were elevated with ferritin
of 693, CRP initially 23.7 on 08/10, and Christie 1 antibody was collected and is pending. C3 complement levels was collected and is reduced. C4 levels are within normal limits. Repeat CXR performed today (08/12) showed linear opacification in the right
lower lobe. There also is bilateral interstitial prominence with vascular congestion. Pulmonary now consulted for additional recommendations.
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
Impression:
#Proximal muscle weakness with elevated CRP (prior to prednisone being started on 08/10) - likely due to myositis as NCS/EMG shows electrical instability in the left thigh and left trapezius muscle
#Volume overload with RLL pleural effusion and b/l dispersed GGO
#Shortness of breath - likely due to neuromuscular weakness in setting of volume overload (GGO bilaterally and RLL pleural effusion; also with edema in mesentery and SQ fat of abdomen/pelvis, further supporting volume o/l
#Hypochloremic, hyponatremia - normalized and now Cl(-) level is elevated
#Hypokalemia - now normalized
#Acute kidney injury - likely due to pre-renal azotemia as his Cr is now normalized
#Lactic acidosis - now normalized
#Primary hyperthyroidism with elevated TSH and elevated free T4 (he does take LT4 as an outpatient)
#Tobacco use disorder
#Fatty liver
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
Plan:
- Given the increased opacification in the right lower lobe with pleural effusion seen on CT chest and patient being net (+)approx 6L since admission, I believe he is volume overloaded --> I gave him IV lasix last night; trend BNP, monitor I/O,
daily weights. If patient spikes fever then would start antibiotics with cefepime/vancomycin with adrian culture obtained prior to starting ABX. For now, continue diuretics as tolerated and monitor I/O
- continue to closely monitor SpO2 and maintain sats >90-94%
- Continue systemic steroids --> was initially on OCS as the pt was wheezing on exam; Neurology raised dose to 60 mg given concern for myopathy with proximal >distal generalized weakness with differential including polymyositis/dermatomyositis,
drug-induced myopathy versus hypothyroidism; NCS/EMG also abnormal in left thigh and left trapezius muscles with electrical instability; given concern for connective tissue disease with acute myositis, prednisone now changed to pulse dose steroids
(1g solumedrol x 3 doses)
- Trend NIF and VC x 3 days to assure no impending respiratory failure (currently MIP is adequate at [id number] today)
- Rheumatology on board --> recs appreciated
- nicotine patch - can start with 7-14mg/day
- Continue IVIG x 5 days per neurology
- follow up TPMT to rule out deficiency
- Outpatient PFTs given he is an active tobacco smoker and is at risk for COPD
- Continue nebulized bronchodilators with DuoNebs QID
- Encourage incentive spirometer
- PT/OT
- DVT ppx --> HSQ
Pulmonary service will continue to follow along.
A moderate level of medical decision making was performed for this encounter; 56 minutes was spent reviewing patient's imaging, and performing pulmonary management to avoid any further worsening in his acute hypoxia.
Data:
CT Chest/Abdomen/Pelvis 08-14-2023:
IMPRESSION:
1). Small right-sided pleural effusion with associated compressive atelectasis at the posterior right lung base
2). Minimal left pleural effusion
3).There is patchy groundglass airspace disease throughout both lungs, most prominent in the upper lobes which may reflect acute or chronic inflammatory airspace disease.
4). Atherosclerosis.
5). Diffuse fatty infiltration of the liver.
6). Small volume edema in the mesentery
7). Multilevel degenerative disc disease.
8). Old 10% compression fracture of the superior endplate of L4
9).There is mild edema versus inflammatory stranding in the subcutaneous fat of the abdomen and pelvis
CXR 08-09-2023:
Mild interstitial prominence, suggesting mild interstitial edema; No definite acute airspace process or pleural effusion.
CXR 08-13-2023: Stable mild pulmonary interstitial edema. New right basilar atelectasis and/or pneumonia.
Abd US 08-10-2023:
Diffuse fatty infiltration of the liver.
Biliary sludge in the gallbladder.
Subjective Data
-
Date of Service:
Date of Service: August 15, 2023
Chief Complaint: Pulmonary Follow Up
Subjective:
Patient seen today at bedside. He was in the bathroom but had difficulty standing up and needed assistance. After he returned to the bed he was a little short of breath but this is slowly normalized. He continues to be short of breath with
exertion but is mainly due to his proximal muscle weakness mainly in his legs and when he tries to lift up his arms.
Yesterday he had a CT chest, abdomen, pelvis showing a right-sided pleural effusion with bilateral diffuse patchy GGO with mesenteric edema/abdominal-pelvic SQ edema, consistent with continued volume overload. lasix 40mg IVP x1 given and he
urinated 'every 1 hour for several hours.' He did say that he did have some trouble urinating at some points but eventually the urine did come out. He denies any known history of BPH, but he does admit that his urinary stream is not as strong as
it used to be when he was younger man.
Review of Systems
General: Other (Negative unless mentioned above)
Objective Data
Data Reviewed
Vital Signs / I&O / Oxygen:
Vital Signs
Temp Pulse Resp BP Pulse Ox
97.7 F 84 18 132/84 94
08/15/23 07:05 08/15/23 07:05 08/15/23 07:05 08/15/23 07:05 08/15/23 08:08
Intake and Output
08/14/23 08/15/23 08/16/23
06:59 06:59 06:59
Intake Total 960 / 960 2040 / 2040
Output Total 1200 / 1200 1835 / 1835
Balance -240 / -240 205 / 205
SaO2 94
Nasal Cannula flow liters per 2
minute
Physical Exam
General: Respiratory Distress (negative), Comfortable and Sweats (negative)
HEENT: Normocephalic and Anicteric
Cardiovascular: S1-S2 and Peripheral Edema (negative)
Respiratory: Clear (Middle lung veliz to upper lung veliz bilaterally are clear), Wheeze (Negative), Crackles (Bibasilar (R >L)), Rhonchi (negative) and Non-Labored Respirations
GI: Soft, Non Distended and Non Tender
Neurology: Awake, Alert and Tremors (negative)
Skin: Warm and Dry
Labs/Micro/Reports
Lab Data
08/15/23 06:26
08/15/23 06:26
Microbiology
08/13/23 08:12 Blood/Venous Blood Culture - Preliminary
No Growth in 48 hours- Final report to follow
--- NOTE | 2023-08-15 09:59 | PTCARENOTE ---
Pt has dusky petechial rash on lower abd; stated 'It's from the blood thinner injection (heparin); denies itching. notified. Will continue to monitor.
--- NOTE | 2023-08-15 10:30 | W.PN.NEURO.1 ---
Today's Communication / Plan
-
Change prednisone 60 mg to Methylprednisolone 1gm IV daily x 3 then back o Prednisone 60 mg daily
Neuro Assessment/Plan
Assessment
Impressions
1. Concern for myopathy producing proximal more than distal generalized weakness. Possibilities include from polymyositis or dermatomyositis, or drug-induced which can be seen with colchicine. Hypothyroidism can produce some myopathy as well
but probably does not explain the whole picture.
2. Significant gout history
3. Hypertension
4. Hypothyroidism
CT chest abdomen pelvis suggestive of interstitial changes in the chest
Plan
Recommendations:
Change prednisone 60 mg to Methylprednisolone 1gm IV daily x 3 then back o Prednisone 60 mg daily
Await blood testing for DEBORAH, SSA and SSB, Aldolase,anti Christie-1 antibody, AUTOMOBILE RENTAL REPRESENTATIVE, Anti-gibbs, Anti PM and Anti KU antibodies
Initiated immunoglobulin 400 mg/kg/ 5-day course, last day 08/18/2023
Remain off Colchicine
Rehabilitation evaluations appreciated
Will follow
Subjective/Objective
Subjective Data
Date of Service: August 15, 2023
Urinary frequency yesterday.
Improved strength today.
Objective Data
Vital Signs
Temp Pulse Resp BP Pulse Ox
36.5 C 84 18 132/84 94
08/15/23 07:05 08/15/23 07:05 08/15/23 07:05 08/15/23 07:05 08/15/23 08:08
Lab Results
08/15/23 06:26
08/15/23 06:26
PT 19.1 Sec (11.4-14.6) H 08/11/23 05:45
INR 1.63 08/11/23 05:45
APTT 37.3 Sec (23.4-35.0) H 08/09/23 20:06
Sodium 138 mmol/L (135-145) 08/15/23 06:26
Potassium 3.6 mmol/L (3.5-5.1) 08/15/23 06:26
BUN 16 mg/dl (9-20) 08/15/23 06:26
Glucose 94 mg/dl (70-99) 08/15/23 06:26
Calcium 7.4 mg/dl (8.4-10.2) L 08/15/23 06:26
Phosphorus 3.5 mg/dl (2.5-4.5) 08/10/23 05:48
Zwg-P-Chiitlabkeg Pept 1980 pg/ml 08/13/23 05:37
Vitamin B12 > 1000 pg/ml (239-931) H 08/13/23 05:37
Patient Allergies
Penicillins Allergy (Verified 08/09/23 19:45)
Unknown
Review of Systems
-
History Source: Patient
All other systems: Reviewed and negative
EENT: Negative Swallowing Difficulty
Respiratory: Trouble Breathing
Cardiac: Negative Chest Pain
Abdomen/GI: Negative Incontinence of Stool
Genitourinary: Negative Incontinence
Musculoskeletal: Negative Back Pain or Neck Pain
Neuro: Negative Dizzy or Headache
Physical Exam
-
General: No Apparent Distress and Appears Stated Age
Eyes: Round OU, [place] Conjunctivae and No Ptosis
HEENT: Anicteric and Moist Mucous Membranes
Neck: Full Range of Motion
Respiratory: No Dyspnea
Cardiac: No JVD
GI: Non-distended
Skin: Other (Facial rash suggestive of acne)
Extremities: No Clubbing, No Cyanosis and No Edema
Psych: Intact Judgement/Insight
Extended Neurological Exam
Mood & Affect: Mood Unremarkable and Affect Unremarkable
Attention Span & Concentration: Awake, Alert, Interactive and No Difficulty with 2 Step Request
Memory: Unremarkable
Tremor: Hand Tremor Absent and Head Tremor Absent
Speech: Quality Unremarkable and Quantity Unremarkable
Cranial Nerve II: Left Eye: Pupillary Size Unremarkable and Visual Barnhart Grossly Intact
Cranial Nerve II: Right Eye: Pupillary Size Unremarkable and Visual Barnhart Grossly Intact
Cranial Nerves III, IV, : Extraocular Movement: Extraocular Movement Full in all Directions
Cranial Nerve VII: Facial Symmetry: Normal Facial Symmetry
Cranial Nerve XI: Shoulder Shrug: Reduced on Right and Reduced on Left
Muscle Strength, Overall: Reduced (4- out of 5 neck flexors, 4 out of 5 neck extensors, 4 out of 5 bilateral lower extremities proximally, full distally and in hands distally full)
Muscle Bulk & Tone: Bulk Unremarkable and Tone Unremarkable
Coordination: Reaches for Objects without Difficulty
Gait & Station: Unable to Assess
Past History
Past History
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
Social History
Tobacco: Non-smoker
Alcohol: None
Medications
-
Medications:
Generic Name Dose Route Start Last Admin
Trade Name Freq PRN Reason Stop Dose Admin
Acetaminophen 650 mg 08/14/23 11:00 08/14/23 14:15
Acetaminophen 325 Mg Tablet PO 08/18/23 11:01 650 mg
DAILY@1100 MELISSA Administration
Artificial Tears 1 drops 08/13/23 18:46 08/13/23 19:30
Artificial Tears Pf (Refresh) 10 Drop Droperette OPHTH 09/10/23 18:45 1 drops
Q4HPRN PRN Administration
DRY EYES
Bisacodyl 10 mg 08/13/23 18:54
Bisacodyl 5 Mg Enteric Coated Tablet PO 09/10/23 18:53
DAILYPRN PRN
constipation
Bisacodyl 10 mg 08/13/23 18:54
Bisacodyl 10 Mg Rectal Suppository RECTAL 09/10/23 18:53
HSPRN PRN
if no BM with oral bisacodyl
Diphenhydramine HCl 25 mg 08/14/23 11:00 08/14/23 14:15
Diphenhydramine 50 Mg/Ml 1 Ml Vial IV 08/18/23 11:01 25 mg
DAILY@1100 MELISSA Administration
Docusate Sodium 100 mg 08/13/23 20:00 08/15/23 08:09
Docusate Sodium 100 Mg Capsule PO 09/10/23 19:59 Not Given
BID MELISSA
Folic Acid 1 mg 08/10/23 08:00 08/15/23 08:09
Folic Acid 1 Mg Tablet PO 09/07/23 07:59 1 mg
DAILY MELISSA Administration
Heparin Sodium 5,000 units 08/13/23 20:00 08/15/23 08:09
Heparin 5,000 Units/Ml 1 Ml Vial SC 09/10/23 19:59 5,000 units
Q12 MELISSA Administration
Immune Globulin 20 gram in 200 mls @ 0 mls/hr 08/14/23 12:00 08/14/23 15:10
Gammagard IV 08/18/23 12:01 200 mls
PER PROTOCOL MELISSA Administration
Protocol
Per Protocol
Immune Globulin 5 gram in 50 mls @ 0 mls/hr 08/14/23 12:00 08/14/23 17:28
Gammagard IV 08/18/23 12:01 50 mls
PER PROTOCOL MELISSA Administration
Protocol
Per Protocol
Levothyroxine Sodium 88 mcg 08/10/23 07:00 08/15/23 06:08
Levothyroxine 88 Mcg Tablet PO 09/07/23 06:59 88 mcg
DAILY@0700 MELISSA Administration
Ondansetron HCl 4 mg 08/10/23 00:06
Ondansetron 4 Mg/2 Ml Vial IV 09/07/23 00:05
Q6HPRN PRN
nausea and vomiting
Pantoprazole Sodium 40 mg 08/10/23 08:00 08/15/23 08:10
Protonix 40 Mg Iv Push IV 09/07/23 07:59 40 mg
DAILY MELISSA Administration
Prednisone 60 mg 08/14/23 10:00 08/15/23 08:09
Prednisone 20 Mg Tablet PO 09/11/23 09:59 60 mg
DAILY MELISSA Administration
Sennosides 17.2 mg 08/14/23 12:00 08/14/23 12:06
Sennosides (Senokot) 8.6 Mg Tablet PO 09/11/23 11:59 Not Given
NOON MELISSA
Sodium Chloride 0 flush 08/10/23 01:00 08/15/23 08:10
Sodium Chloride 0.9% (Flush) Syringe IV 09/07/23 00:59 1 flush
PER PROTOCOL MELISSA Administration
Sodium Chloride 10 ml 08/10/23 08:00 08/15/23 08:10
Sodium Chloride 0.9% (Preservative Free) 10 Ml Vial IV 09/07/23 07:59 10 ml
DAILY MELISSA Administration
[2023-08-15] MEDS: BENADRYL 25 MG IV (11:11)
[2023-08-15] MEDS: TYLENOL 650 MG PO (11:11)
--- NOTE | 2023-08-15 11:23 | W.PN.HOSP.TC ---
Today's Communication/Plan
-
increase steroids and add IVIG as per neuro
Assessment / Plan
Assessment / Plan
A/P:� Patient is a 57y M with PMH significant for hypothyroidism, hypertension and gout who presents to ED complaining of progressive weakness and fatigue x weeks / months.
On admission pt states he did not drink alcohol. On 08/12 reviewed this with him and he states up until about 2 yrs ago he did consume a significant amount of alcohol, but has totally avoided past 2 yrs
DOROTEO
better, BUN/Creat 50/2.0-->17/0.9-->16/1.0
Hypokalemia
resolved 2.9-->3.3-->4.3-->3.6
Hyponatremia
better 123-->130-->136-->138
Hypotension
resolved. BP 132/84 range. Will continue to follow
Lactic Acidosis
better 4.5-->1.1
�- Patient appeared significantly volume depleted with hypotension, weakness, etc.
this has improved with IVF
�- IVF support and electrolyte correction.
During 08/11- night he became more sob and concern was raised that he had received excess amount of fluid and IVF stopped
Abnormal LFTs
�- Patient with hyperbilirubinemia better 3.5-->2.5-->1.7-->1.6-->1.3-->0.9 and abnormal AST 140-->122-->117-->124-->138-->160 > ALT 75-->66-->71-->93-->102-->170.
�- ? med effect, adverse drug reaction / hypersensitivity reaction (delayed). Unsure why LFT's have remained abnormal, ?related to past Etoh
�- ? hemolytic process - follow for changes in Hgb with volume replacement. Macrocytic indices (pt denies EtOh)
Hgb 14.8-->12.0-->12.1-->12.2-->11.9-->11.2
�- Hold meds as noted above.
�- Liver US Diffuse fatty infiltration of the liver.
Biliary sludge in the gallbladder..
�- CPK 26.
Marked sob with any exertion
CXR Stable mild pulmonary interstitial edema. New right basilar atelectasis and/or pneumonia.
unclear as to why that would be. Will consult Pulm. Concern about possibly PNA vs inflammatory pulm process, especially when considering rising WBC (though could be related to steroids), discussed with pulm
Echocardiogram: 1.� Left ventricular cavity is small with a hyperdynamic LV systolic function
�and mild concentric left ventricular hypertrophy.� Estimated LV ejection
�fraction is 65 to 70% without regional wall motion abnormalities.� Normal
�diastolic function.
�2.� Small right ventricular size with normal systolic function.
�3.� No significant valvular abnormalities.
�4.� No pericardial effusion.
�5.� Technically difficult study
Leukocytosis / Thrombocytosis (resolved)
Currently believe related to steroids, will follow
�- Suspect this is volume mediated.
�- Follow for any fever or other focal symptoms.
�- Observe off of further abx for now.
�- Follow for changes in cell counts.
Procal 0.43, trend WBC and temp, consider IF consult, though pt showing no signs of active infectious process
Hypothyroidism
�- Under-replaced.� In part due to patient taking no meds for at least one week.
�- Restart T4 supplementation at slightly higher dose.
�- Repeat TFTs in 4-6 weeks.
Benign Hypertension
�- BP generally better.� Hold amlodipine.
better 109/77-151/77, currently 132/84, potentially resume BP Rx next 1-2 days
Severe Tophaceous Gout
�- Stable at present.
�- Patient notes that tophi are significantly improved from prior.
Hypoalbuminemia
pt starting to eat, will follow
1.8-->1.9-->2.0-->2.1
DVT Prophylaxis: now on Heparin 5k q12h
call placed and discussed with Jerry Otto ([phone]) 08/12. Labs are very abnormal, including severe hypoalbuminemia
As per Dr. Otto, pt also had very high ESR 90's, ?inflammatory condition of unclear etiology
ESR 34/CRP 23.7 recheck 08/12 ESR 41/crp 12.4
continue IVF
complex situation
will repeat labs
input of consultants appreciated
starting to eat, though appetite not back to baseline
Input of neuro/Physiatry appreciated. EMG apparently consistent with Myositis and Prednisone increased to 60 mg daily with plan to change to Methylprednisolone 1 gm IV daily x 3days, then resume Pred 60 mg qd as well as to start IVIG for 5 days
Code Status:� Full
complex situation
Anticipated Discharge: > 48 hours
Subjective/Interval History
-
Date of Service: August 15, 2023
Awake, alert, believes he is feeling better
Objective Data
-
Labs:
Laboratory Results
08/15/23
06:26
WBC 12.7 H
Hgb 11.2 L
Hct 33.2 L
Plt Count 221 D
Sodium 138
Potassium 3.6
Chloride 113 H
Carbon Dioxide 18 L
BUN 16
Creatinine 1.0
Glucose 94
Calcium 7.4 L
Total Bilirubin 0.9
AST 160 H
ALT 170 H
Alkaline Phosphatase 217 H
Vital Signs:
Vital Signs
Temp Pulse Resp BP Pulse Ox
97.7 F 84 18 132/84 94
08/15/23 07:05 08/15/23 07:05 08/15/23 07:05 08/15/23 07:05 08/15/23 08:08
I&O
08/14/23 08/15/23 08/16/23
06:59 06:59 06:59
Intake Total 960 / 960 2039
Output Total 1200 / 1200 1835 / 1835
Balance -240 / -240
Review of Systems
-
History Source: Patient, Physician (reviewed with Dr. Otto) and Coordinated Provider
Constitutional: Denies Fever
Respiratory: Reports Trouble Breathing
Cardiac: Denies Chest Pain
Abdomen/GI: Reports No Symptoms
Musculoskeletal: Reports Muscle Weakness
Neuro: Reports No Symptoms
Physical Exam
-
General: Well Developed, Well Nourished and No Apparent Distress
HEENT: Normocephalic, Atraumatic and Moist Mucous Membranes
Respiratory: Clear to Auscultation; Negative Wheezes, Rales or Rhonchi
Cardiac: Regular Rhythm and S1/S2
GI: Soft, Nontender and Nondistended
Musculoskeletal: No Clubbing, No Cyanosis, No Edema and Other (upper and lower extremities remain weak, but definitely better today. DTR 0/4 all extremities. Able to pull hand off shoulder bilaterally, but required a little more exertion)
Neuro: Awake, Alert, Oriented and AO x 3; Negative No Motor Deficits (remains weak, but believe there has been some improvement) or Tremors
Psych: Calm; Negative Confused or Agitated
[2023-08-15] MEDS: GAMMAGARD 200 IV (12:10)
[2023-08-15] MEDS: GAMMAGARD 50 IV (14:04)
[2023-08-15] MEDS: SOLU-MEDROL 258 MG IV (14:35)
--- NOTE | 2023-08-15 15:22 | PTCARENOTE ---
Pt AAO x3, MEEK; OOB to BR with assist x1/walker, jayant well, tires easily; refused offer of OOB to chair activity. VSS. Telemetry:NSR/sinus tachy to 110's with activity. On room air- pulseox 95%, pt with (+) slight LARA. Abd large, soft, jayant PO
well. Voiding clear rhina urine in urinal. Pt jayant IVIG infusion well, VSS, no adverse effects noted. Resting in bed at present, no c/o. Will continue to monitor.
--- NOTE | 2023-08-15 16:41 | CM ---
PT OT recommended VN.
Spoke with patient in room.
Pt requested [facility] VN . Referral placed in care port.
Will need walker also at dc.
PLAN Home with Cali[facility] FELIZ
[2023-08-15 21:30] LABS: ANA, IgG Reflex to HEp-2 None Detected (None Detected)
[2023-08-16] VITALS (12 sets, daily range): BP systolic 107–147; BP diastolic 80–97; PULSE 91; BMI 29.2
[2023-08-16 00:07] LABS: Smith/RNP (ENA), IgG 2 Units (0-19)
[2023-08-16 01:03] LABS: IgA 452 mg/dl (70-400); IgG 1282 mg/dl (700-1600)
[2023-08-16 01:09] LABS: Jo-1 Antibodies 1 AU/mL (0-40)
[2023-08-16 01:10] LABS: SSA 52 (Ro)(ENA) Ab, IgG 1 AU/mL (0-40); SSA 60 (Ro)(ENA) Ab, IgG 0 AU/mL (0-40); SSB (La)(ENA) Ab, IgG 0 AU/mL (0-40); Smith (ENA) Antibody, IgG 0 AU/mL (0-40)
[2023-08-16 01:19] LABS: IgM > 800 mg/dl (40-230)
[2023-08-16 06:11] LABS: % Basophils 0.2 % (0-2); % Immature Granulocytes 2.2 % (0-0.5); % Lymphocytes 9.7 % (20.5-51.1); % Monocytes 2.2 % (1.7-9.3); % Neutrophils 85.7 % (42.2-75.2); Absolute Immature Granulocytes 0.3 10^3/uL (0-0.05); Absolute Lymphocytes 1.3 10^3/uL (1.2-3.4); Absolute Monocytes 0.3 10^3/uL (0.1-0.6); Absolute Neutrophils 11.6 10^3/uL (1.4-6.5); Hematocrit 32.5 % (39.0-52.0); Hemoglobin 10.7 g/dL (13.0-18.0); Mean Corp Hgb Conc. 32.9 g/dL (33.0-37.0); Mean Corpuscular Hgb 34.1 pg (27.0-31.0); Mean Corpuscular Volume 103.5 fL (80.0-94.0); Mean Platelet Volume 11.6 fL (7.4-10.4); Nucleated Red Blood Cells % 0.1 % (-); Platelet Count 224 10^3/uL (130-400); Red Blood Cell Count 3.14 10^6/uL (4.70-6.10); Red Cell Dist. Width 15.5 % (11.5-14.5); White Blood Cell Count 13.5 10^3/uL (4.8-10.8)
[2023-08-16 06:27] LABS: NT-proBNP 2400 pg/ml
[2023-08-16 06:33] LABS: ALT (SGPT) 144 U/L (0-50); AST (SGOT) 92 U/L (17-59); Albumin 2.2 g/dl (3.5-5.0); Alkaline Phosphatase 195 U/L (38-126); Blood Urea Nitrogen 17 mg/dl (9-20); Calcium 7.4 mg/dl (8.4-10.2); Carbon Dioxide 20 mmol/L (22-30); Chloride 111 mmol/L (98-107); Estimated Creatinine Clearance 78 ml/min; Glucose 202 mg/dl (70-99); Potassium 3.7 mmol/L (3.5-5.1); Sodium 137 mmol/L (135-145); Total Bilirubin 1.1 mg/dl (0.2-1.3); Total Protein 6.3 g/dl (6.3-8.2); eGFR > 60.00
[2023-08-16] MEDS: SYNTHROID 88 MCG PO (06:38)
[2023-08-16] MEDS: PROTONIX IV 40 MG IV (07:55)
[2023-08-16] MEDS: NSS (PRESERVATIVE FREE) 10 ML IV (07:55)
[2023-08-16] MEDS: FOLVITE 1 MG PO (07:55)
[2023-08-16] MEDS: HEPARIN 5000 UNITS SC ×2 (07:55→21:05)
--- NOTE | 2023-08-16 08:12 | W.PN.NEURO.1 ---
Addendum entered and electronically signed by Jared Werner MD 08/16/23 11:50:
I saw and evaluated the patient I reviewed the note by Tammy Coon agree the findings the following comments:
57-year-old male with a past medical history of significant gout, hypertension and hypothyroidism presenting to hospital with approximately 1-1/2-2 and half months of progressive generalized weakness without significant pain and started to have neck
weakness as well as dyspnea with minimal exertion. He has been being treated with methotrexate as well as Krystesxxa for tophaceous gout, has been on steroids intermittently in the past.
Patient reports a little bit of improvement in his generalized strength reports some mild dyspnea with exertion no dysphagia no ptosis. He feels his heart is noting some swelling.
Neurologic examination is unchanged besides some mild improvement in head neck in flexion strength which appears 5/5 now, otherwise he shows more proximal rather than distal weakness in a symmetric manner and a 4/5 strength of shoulders arms and
hips, absent reflexes throughout..
Reviewed the EMG.
CT chest abdomen pelvis with no strong evidence of malignancy.
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 Chief considerations are dramatic and polymyositis although the patient does not have the characteristic rash as well as potential for toxic induced myositis which can be
caused by colchicine the patient reports he was on colchicine for gout to May until July.
Very likely that the peripheral neuropathy has of his chronic and minimally symptomatic not playing much of a role in his current presentation.
Recommendations
-Await further antibody testing for myositis
-Continue 3 days of IV steroid and 3 days of IVIG
-Plan for 60 mg p.o. prednisone daily after finishing the IV high-dose steroids
-Physical therapy occupational therapy and mobilization as tolerated
-Eventually will need to consider muscle biopsy for more clear diagnosis but I do not think that this would necessarily need to be obtained as an inpatient
-Rheumatology input noted and appreciated
Neurology will continue to follow
Original Note:
Today's Communication / Plan
-
.
Neuro Assessment/Plan
Assessment
This is a 57-year-old male with past medical history of hypothyroidism, gout, hypertension presented to on 08/10/23 with report of dyspnea, generalized weakness, and falls.
-CT chest abdomen pelvis suggestive of interstitial changes in the chest
-EMG 08/14/23: Chronic inflammatory or toxic myopathy based on short duration small amplitude polyphasic motor unit potentials identified in the left upper trapezius as well as left tensor fascia eber and left vastus medialis muscles.
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 Moderate right median neuropathy at the wrist.
Impressions
1. Concern for myopathy producing proximal more than distal generalized weakness. Possibilities include from polymyositis or dermatomyositis, or drug-induced which can be seen with colchicine. Hypothyroidism can produce some myopathy as well
but probably does not explain the whole picture.
2. Significant gout history
3. Hypertension
4. Hypothyroidism
Plan
-Change prednisone 60 mg to Methylprednisolone 1gm IV daily x 3 (Day 2 today) then back to Prednisone 60 mg daily.
-Await blood testing for DEBORAH, SSA and SSB, Aldolase,anti Christie-1 antibody, RELOCATION COMMISSIONER, Anti-gibbs, Anti PM and Anti KU antibodies.
-Initiated immunoglobulin 400 mg/kg/ 5-day course (day 3 today), last day 08/18/2023.
-Remain off Colchicine.
-Consider muscle biopsy.
-PT/OT/ST evaluations.
-DVT prophylaxis.
Will follow
Subjective/Objective
Subjective Data
Date of Service: August 16, 2023
No acute events overnight. Patient reports that his strength and breathing feel mildly improved today. He denies any headache, dizziness, vision change, speech/swallow difficulty, numbness, chest pain, and palpitations.
Objective Data
Vital Signs
Temp Pulse Resp BP Pulse Ox
98.2 F 91 19 147/96 92
08/16/23 03:44 08/16/23 03:44 08/16/23 03:44 08/16/23 03:44 08/16/23 03:44
Lab Results
08/16/23 05:27
08/16/23 05:27
PT 19.1 Sec (11.4-14.6) H 08/11/23 05:45
INR 1.63 08/11/23 05:45
APTT 37.3 Sec (23.4-35.0) H 08/09/23 20:06
Sodium 137 mmol/L (135-145) 08/16/23 05:27
Potassium 3.7 mmol/L (3.5-5.1) 08/16/23 05:27
BUN 17 mg/dl (9-20) 08/16/23 05:27
Glucose 202 mg/dl (70-99) H 08/16/23 05:27
Calcium 7.4 mg/dl (8.4-10.2) L 08/16/23 05:27
Phosphorus 3.5 mg/dl (2.5-4.5) 08/10/23 05:48
Quf-X-Fydzwnumblj Pept 2400 pg/ml 08/16/23 05:27
Vitamin B12 > 1000 pg/ml (239-931) H 08/13/23 05:37
Patient Allergies
Penicillins Allergy (Verified 08/09/23 19:45)
Unknown
Review of Systems
-
History Source: Patient
EENT: Blurry Vision; Negative Decreased Vision or Swallowing Difficulty
Respiratory: Trouble Breathing; Negative Cough
Cardiac: Negative Chest Pain or Palpitations
Abdomen/GI: Negative Nausea
Genitourinary: Negative Difficulty Voiding
Neuro: Weakness; Negative Dizzy, Headache, Numbness, Ataxia, Tremors or Speech Problem
Physical Exam
-
General: No Apparent Distress
Eyes: No Ptosis and PERRLA
HEENT: Normocephalic and Atraumatic
Neck: Full Range of Motion
Respiratory: Negative No Dyspnea
GI: Non-distended
Skin: Rash (erythematic rash on face, palms of hands)
Extremities: No Clubbing, No Cyanosis and No Edema
Psych: Unremarkable
Extended Neurological Exam
Mood & Affect: Mood Unremarkable and Affect Unremarkable
Attention Span & Concentration: Awake, Alert and Interactive
Memory: Unremarkable (AAOx3) and Able to Recall
Tremor: Hand Tremor Absent and Head Tremor Absent
Involuntary Movement: None
Speech: Quantity Unremarkable and Rate of Production Unremarkable; Negative Quality Unremarkable (slightly hypophonic)
Cranial Nerve II: Left Eye: Pupillary Reactivity Unremarkable, Pupillary Size Unremarkable and Visual Barnhart Intact
Cranial Nerve II: Right Eye: Pupillary Reactivity Unremarkable, Pupillary Size Unremarkable and Visual Barnhart Intact
Cranial Nerves III, IV, : Extraocular Movement: Extraocular Movement Full in all Directions
Cranial Nerve V: Facial Sensation: Intact to Light Touch
Cranial Nerve VII: Facial Symmetry: Normal Facial Symmetry
Cranial Nerve VIII: Hearing: Unremarkable Hearing to Normal Conversational Volume
Cranial Nerves IX, X: Palate Movement: Palate Elevation Symmetric
Cranial Nerve XI: Shoulder Shrug: Reduced on Right and Reduced on Left
Cranial Nerve XII: Tongue Protusion: Midline
Muscle Strength, Overall: Reduced Throughout (Neck flexion 5-/5, neck extension 4/5, b/l shoulder 3/5, b/l hip flexion 4/5)
Pronator Drift: No Drift in Upper Extremities and No Drift in Lower Extremities
Touch Sensation: Unremarkable
Coordination: Cyorks-ajmb-oiuyty Testing Unremarkable
Babinski Sign: Absent Bilaterally
Data Reviewed
-
Medical Test Reports: Report Reviewed (EMG)
Labs: Report Reviewed
Reviewed with: Physician and Patient
Medications
-
Active Medications
Generic Name Dose Route Start Last Admin
Trade Name Freq PRN Reason Stop Dose Admin
Acetaminophen 650 mg 08/14/23 11:00 08/15/23 11:11
Acetaminophen 325 Mg Tablet PO 08/18/23 11:01 650 mg
DAILY@1100 MELISSA Administration
Artificial Tears 1 drops 08/13/23 18:46 08/13/23 19:30
Artificial Tears Pf (Refresh) 10 Drop Droperette OPHTH 09/10/23 18:45 1 drops
Q4HPRN PRN Administration
DRY EYES
Bisacodyl 10 mg 08/13/23 18:54
Bisacodyl 5 Mg Enteric Coated Tablet PO 09/10/23 18:53
DAILYPRN PRN
constipation
Bisacodyl 10 mg 08/13/23 18:54
Bisacodyl 10 Mg Rectal Suppository RECTAL 09/10/23 18:53
HSPRN PRN
if no BM with oral bisacodyl
Diphenhydramine HCl 25 mg 08/14/23 11:00 08/15/23 11:11
Diphenhydramine 50 Mg/Ml 1 Ml Vial IV 08/18/23 11:01 25 mg
DAILY@1100 MELISSA Administration
Docusate Sodium 100 mg 08/13/23 20:00 08/16/23 07:53
Docusate Sodium 100 Mg Capsule PO 09/10/23 19:59 Not Given
BID MELISSA
Folic Acid 1 mg 08/10/23 08:00 08/16/23 07:55
Folic Acid 1 Mg Tablet PO 09/07/23 07:59 1 mg
DAILY MELISSA Administration
Heparin Sodium 5,000 units 08/13/23 20:00 08/16/23 07:55
Heparin 5,000 Units/Ml 1 Ml Vial SC 09/10/23 19:59 5,000 units
Q12 MELISSA Administration
Immune Globulin 20 gram in 200 mls @ 0 mls/hr 08/14/23 12:00 08/15/23 12:10
Gammagard IV 08/18/23 12:01 200 mls
PER PROTOCOL MELISSA Administration
Protocol
Per Protocol
Immune Globulin 5 gram in 50 mls @ 0 mls/hr 08/14/23 12:00 08/15/23 14:04
Gammagard IV 08/18/23 12:01 50 mls
PER PROTOCOL MELISSA Administration
Protocol
Per Protocol
Methylprednisolone Sodium 258 mls @ 258 mls/hr 08/15/23 12:00 08/15/23 14:35
Succinate 1,000 mg/ Sodium IV 08/17/23 12:59 258 mls
Chloride Q24H MELISSA Administration
Levothyroxine Sodium 88 mcg 08/10/23 07:00 08/16/23 06:38
Levothyroxine 88 Mcg Tablet PO 09/07/23 06:59 88 mcg
DAILY@0700 MELISSA Administration
Ondansetron HCl 4 mg 08/10/23 00:06
Ondansetron 4 Mg/2 Ml Vial IV 09/07/23 00:05
Q6HPRN PRN
nausea and vomiting
Pantoprazole Sodium 40 mg 08/10/23 08:00 08/16/23 07:55
Protonix 40 Mg Iv Push IV 09/07/23 07:59 40 mg
DAILY MELISSA Administration
Prednisone 60 mg 08/14/23 10:00 08/15/23 08:09
Prednisone 20 Mg Tablet PO 09/11/23 09:59 60 mg
DAILY MELISSA Administration
Sennosides 17.2 mg 08/14/23 12:00 08/15/23 12:19
Sennosides (Senokot) 8.6 Mg Tablet PO 09/11/23 11:59 Not Given
NOON MELISSA
Sodium Chloride 0 flush 08/10/23 01:00 08/15/23 14:35
Sodium Chloride 0.9% (Flush) Syringe IV 09/07/23 00:59 1 flush
PER PROTOCOL MELISSA Administration
Sodium Chloride 10 ml 08/10/23 08:00 08/16/23 07:55
Sodium Chloride 0.9% (Preservative Free) 10 Ml Vial IV 09/07/23 07:59 10 ml
DAILY MELISSA Administration
Home Medications
Medication Instructions Recorded
amlodipine 5 mg tablet 5 mg PO DAILY Blood Pressure 08/09/23
colchicine 0.6 mg tablet 0.6 mg PO DAILY gout 08/09/23
folic acid 1 mg tablet 1 mg PO DAILY Supplement 08/09/23
levothyroxine 75 mcg tablet 75 mcg PO DAILY Thyroid 08/09/23
methotrexate sodium 2.5 mg tablet 15 mg PO SA Autoimmune Disorder 08/09/23
pegloticase 8 mg/mL intravenous 8 mg IV Q2W gout 08/09/23
solution (Krystexxa)
--- NOTE | 2023-08-16 09:01 | W.PN.PUL3 ---
Today's Communication / Plan
-
Continue systemic steroids (currently being pulsed) + IVIG as per neurology
Dimarjane --> I gave 40mg IV lasix on 08/13 and will give another 40mg tonight given his BNP has gone up
If patient develops additional/future urination difficulty, then would empirically start Flomax
Procal: 0.43 --> no need for Abx at this time
If pt spikes fever then consider starting Abx
Follow up CTD workup (C3: 61 (low)); C4: 14.8 (WNL); aldolase: 9
Up OOB as tolerated
IS
Assessment
-
Assessment: 57-year-old male with a past medical history of gout on methotrexate and hypertension who presents with generalized weakness X 2 weeks that developed into shortness of breath. He has been on infusions for gout and believes that the
medication is causing these side effects with weakness and shortness of breath. In the ER patient was hypotensive to 94/70 and hypoxic to 93% on room air. Patient is an everyday tobacco smoker. Multiple electrolyte abnormalities were seen with
hyponatremia, hypokalemia, elevated creatinine, lactic acidosis, elevated LFTs, abnormal TFTs, elevated D-dimer, leukocytosis, and elevated platelet count. 2L IVF with NS 0.9% was given in addition to Abx (aztreonam, KCl infusion and zithromax).
Initial CXR showed mild interstitial prominence suggestive of mild interstitial edema. Patient was admitted to the hospitalist service. Urinalysis was negative for UTI. Antibiotics were stopped. Inflammatory markers were elevated with ferritin
of 693, CRP initially 23.7 on 08/10, and Christie 1 antibody was collected and is pending. C3 complement levels was collected and is reduced. C4 levels are within normal limits. Repeat CXR performed today (08/12) showed linear opacification in the right
lower lobe. There also is bilateral interstitial prominence with vascular congestion. Pulmonary now consulted for additional recommendations.
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
Impression:
#Proximal muscle weakness with elevated CRP (prior to prednisone being started on 08/10) - likely due to myositis as NCS/EMG shows electrical instability in the left thigh and left trapezius muscle
#Volume overload with RLL pleural effusion and b/l dispersed GGO
#Shortness of breath - likely due to neuromuscular weakness in setting of volume overload (GGO bilaterally and RLL pleural effusion; also with edema in mesentery and SQ fat of abdomen/pelvis, further supporting volume o/l
#Hypochloremic, hyponatremia - normalized and now Cl(-) level is elevated
#Hypokalemia - now normalized
#Acute kidney injury - likely due to pre-renal azotemia as his Cr is now normalized
#Lactic acidosis - now normalized
#Primary hyperthyroidism with elevated TSH and elevated free T4 (he does take LT4 as an outpatient)
#Tobacco use disorder
#Fatty liver
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
Plan:
- Given the increased opacification in the right lower lobe with pleural effusion seen on CT chest and patient being net (+)approx 6L since admission, I believe he is volume overloaded --> I gave him IV lasix on 08/13; trend BNP, monitor I/O, daily
weights. If patient spikes fever then would start antibiotics with cefepime/vancomycin with adrian culture obtained prior to starting ABX. For now, continue diuretics as tolerated and monitor I/O
- continue to closely monitor SpO2 and maintain sats >90-94%
- Continue systemic steroids --> was initially on OCS as the pt was wheezing on exam; Neurology raised dose to 60 mg given concern for myopathy with proximal >distal generalized weakness with differential including polymyositis/dermatomyositis,
drug-induced myopathy versus hypothyroidism; NCS/EMG also abnormal in left thigh and left trapezius muscles with electrical instability; given concern for connective tissue disease with acute myositis, prednisone now changed to pulse dose steroids
(1g solumedrol x 3 doses)
- Trend NIF and VC x 3 days to assure no impending respiratory failure (currently MIP is adequate at 69atC1O today)
- Rheumatology on board --> recs appreciated --> follow up CTD workup (so far WNL with exception of slightly elevated aldolase level of 9)
- nicotine patch - can start with 7-14mg/day
- Continue IVIG x 5 days per neurology
- follow up TPMT to rule out deficiency
- Outpatient PFTs given he is an active tobacco smoker and is at risk for COPD
- Continue nebulized bronchodilators with DuoNebs QID
- Encourage incentive spirometer
- PT/OT
- DVT ppx --> HSQ
Pulmonary service will continue to follow along.
A moderate level of medical decision making was performed for this encounter; 56 minutes was spent reviewing patient's imaging, and performing pulmonary management to avoid any further worsening in his acute hypoxia.
Data:
CT Chest/Abdomen/Pelvis 08-14-2023:
IMPRESSION:
1). Small right-sided pleural effusion with associated compressive atelectasis at the posterior right lung base
2). Minimal left pleural effusion
3).There is patchy groundglass airspace disease throughout both lungs, most prominent in the upper lobes which may reflect acute or chronic inflammatory airspace disease.
4). Atherosclerosis.
5). Diffuse fatty infiltration of the liver.
6). Small volume edema in the mesentery
7). Multilevel degenerative disc disease.
8). Old 10% compression fracture of the superior endplate of L4
9).There is mild edema versus inflammatory stranding in the subcutaneous fat of the abdomen and pelvis
CXR 08-09-2023:
Mild interstitial prominence, suggesting mild interstitial edema; No definite acute airspace process or pleural effusion.
CXR 08-13-2023: Stable mild pulmonary interstitial edema. New right basilar atelectasis and/or pneumonia.
Abd US 08-10-2023:
Diffuse fatty infiltration of the liver.
Biliary sludge in the gallbladder.
Subjective Data
-
Date of Service:
Date of Service: August 16, 2023
Chief Complaint: Pulmonary Follow Up
Subjective:
Patient seen and evaluated today at bedside. MIP today is 45 cmH2O, with vital capacity 1.75 L. He says he did not sleep well overnight as again he was up urinating almost every hour for several hours. He did not make it clear to me as if he had
trouble urinating. He is currently on room air breathing comfortably. He denies chest pain, abdominal pain, fevers or chills. He was able to walk around the [place] without any significant difficulty despite his continued weakness.
Review of Systems
General: Other (Negative unless mentioned above)
Objective Data
Data Reviewed
Vital Signs / I&O / Oxygen:
Vital Signs
Temp Pulse Resp BP Pulse Ox
97.7 F 96 20 139/95 96
08/16/23 11:34 08/16/23 11:34 08/16/23 11:34 08/16/23 11:34 08/16/23 11:34
Intake and Output
08/15/23 08/16/23 08/17/23
06:59 06:59 06:59
Intake Total 2040 / 2040 1448 / 1448
Output Total 1835 / 1835 1350 / 1350
Balance 205 / 205 98 / 98
SaO2 96
Nasal Cannula flow liters per 2
minute
Physical Exam
General: Respiratory Distress (negative), Comfortable and Sweats (negative)
HEENT: Normocephalic and Anicteric
Cardiovascular: S1-S2 and Peripheral Edema (negative)
Respiratory: Clear (Middle lung veliz to upper lung veliz bilaterally are clear), Wheeze (Negative), Crackles (Bibasilar (R >L)), Rhonchi (negative) and Non-Labored Respirations
GI: Soft, Non Distended and Non Tender
Neurology: Awake, Alert and Tremors (negative)
Skin: Warm and Dry
Labs/Micro/Reports
Lab Data
08/16/23 05:27
08/16/23 05:27
Microbiology
08/13/23 08:12 Blood/Venous Blood Culture - Preliminary
No Growth in 72 hours- Final report to follow
[2023-08-16] MEDS: TYLENOL 650 MG PO (11:07)
[2023-08-16] MEDS: BENADRYL 25 MG IV (11:07)
[2023-08-16] MEDS: SOLU-MEDROL 258 MG IV (11:07)
--- NOTE | 2023-08-16 12:16 | W.PN.HOSP.TC ---
Today's Communication/Plan
-
PT/OT/IS
needs 2 more days of IVIG and pulse steroids
Assessment / Plan
Assessment / Plan
pt is a 57 year old male
DOROTEO--creat 2 on admission--improved to 1.0
Hypokalemia--replete/resolved
Hyponatremia--improved--? pain as etiology
Hypotension-- resolved
Lactic Acidosis--resolved
Abnormal LFTs-- Patient with hyperbilirubinemia/elevated AST/ALT/ALKP all better --US with fatty liver
�
Marked SOB with any exertion and weakness--CXR with pulm edema, atelectasis/pneumonia--apprec pulm/neuro--suspecting dermatomyositis (although CPK is NORMAL) EMG apparently consistent with Myositis --ECHO with preserved EF, doubt CHF--on day3/5 of
IVIG and IV solumedrol pulse
Leukocytosis/Thrombocytosis (resolved)--Currently believe related to steroids, will follow
Hypothyroidism- Under-replaced.� In part due to patient taking no meds for at least one week- Restart T4 supplementation at slightly higher dose- Repeat TFTs in 4-6 weeks.
Essential Hypertension--Holding amlodipine--need to restart meds
Severe Tophaceous Gout- Stable at present- Patient notes that tophi are significantly improved from prior.
Hypoalbuminemia
DVT Prophylaxis: now on Heparin 5k q12h
Code Status:� Full
Anticipated Discharge: > 48 hours
Subjective/Interval History
-
Date of Service: August 16, 2023
pt says breathing a bit better
Objective Data
-
Labs:
Laboratory Results
08/16/23
05:27
WBC 13.5 H
Hgb 10.7 L
Hct 32.5 L
Plt Count 224
Sodium 137
Potassium 3.7
Chloride 111 H
Carbon Dioxide 20 L
BUN 17
Creatinine 1.0
Glucose 202 H
Calcium 7.4 L
Total Bilirubin 1.1
AST 92 H
ALT 144 H
Alkaline Phosphatase 195 H
Vital Signs:
max temp for 24 hours
08/16/23
03:44
Temp 98.2 F
Vital Signs
Temp Pulse Resp BP Pulse Ox
98.3 F 77 18 136/96 95
08/16/23 07:35 08/16/23 07:35 08/16/23 07:35 08/16/23 07:35 08/16/23 08:00
I&O
08/15/23 08/16/23 08/17/23
06:59 06:59 06:59
Intake Total 204 / 0 1448 / 1448
Output Total 1835 / 1835 1350 / 1350
Balance 205 / 205 98 / 98
Review of Systems
-
All other systems: Reviewed and negative
Physical Exam
-
General: Well Developed, Well Nourished, No Apparent Distress and Appears Chronically Ill
HEENT: Normocephalic and Atraumatic
Respiratory: Clear to Auscultation; Negative Wheezes or Rhonchi
Cardiac: Regular Rhythm and S1/S2; Negative Murmur
GI: Soft, Nontender, Nondistended and Normal Bowel Sounds
Musculoskeletal: No Clubbing, No Cyanosis and No Edema
Neuro: Awake
Psych: Calm
[2023-08-16] MEDS: GAMMAGARD 50 IV (12:33)
[2023-08-16] MEDS: GAMMAGARD 200 IV (13:47)
[2023-08-16] MEDS: NORVASC PO (14:17)
--- NOTE | 2023-08-16 18:40 | PTCARENOTE ---
Pt received IVIG Infusion, premedicated with tylenol and benadryl per orders. Pt tolerated well Vitals remained stable throughout, refer to IVIG titration. Afebrile. NSR-ST on tele Plan of care ongoing.
[2023-08-16] MEDS: LASIX 40 MG IV (19:30)
[2023-08-17] VITALS (13 sets, daily range): BP systolic 115–155; BP diastolic 78–95; PULSE 108; O2SAT 93; BMI 28.7
[2023-08-17] MEDS: SYNTHROID 88 MCG PO (04:44)
[2023-08-17] MEDS: HEPARIN 5000 UNITS SC ×2 (08:03→21:16)
[2023-08-17] MEDS: COLCHICINE PO (08:04)
[2023-08-17] MEDS: NSS (PRESERVATIVE FREE) 10 ML IV (08:05)
[2023-08-17] MEDS: NORVASC 5 MG PO (08:05)
[2023-08-17] MEDS: PROTONIX IV 40 MG IV (08:05)
[2023-08-17] MEDS: FOLVITE 1 MG PO (08:05)
--- NOTE | 2023-08-17 08:38 | W.PN.PUL3 ---
Today's Communication / Plan
-
Continue systemic steroids (currently being pulsed - last day today - 08/16) + IVIG as per neurology
Regarding diuresis--> I gave 40mg IV lasix on 08/13 and 08/15, he seems much less SOB today (08/16). Trend proBNP. Administer additional diuresis as needed
If patient develops additional/future urination difficulty, then would empirically start Flomax
Procal: 0.43 --> no need for Abx at this time
If pt spikes fever then consider starting Abx
Follow up CTD workup (C3: 61 (low)); C4: 14.8 (WNL); aldolase: 9
Up OOB as tolerated
IS
We will continue to briefly follow. Once SOB remains stable and continues to improve and proBNP is decreasing then we will sign off at that time and arrange for outpatient follow-up with repeat imaging in 3-4 weeks to assure that groundglass
opacities on CT chest resolved.
Assessment
-
Assessment: 57-year-old male with a past medical history of gout on methotrexate and hypertension who presents with generalized weakness X 2 weeks that developed into shortness of breath. He has been on infusions for gout and believes that the
medication is causing these side effects with weakness and shortness of breath. In the ER patient was hypotensive to 94/70 and hypoxic to 93% on room air. Patient is an everyday tobacco smoker. Multiple electrolyte abnormalities were seen with
hyponatremia, hypokalemia, elevated creatinine, lactic acidosis, elevated LFTs, abnormal TFTs, elevated D-dimer, leukocytosis, and elevated platelet count. 2L IVF with NS 0.9% was given in addition to Abx (aztreonam, KCl infusion and zithromax).
Initial CXR showed mild interstitial prominence suggestive of mild interstitial edema. Patient was admitted to the hospitalist service. Urinalysis was negative for UTI. Antibiotics were stopped. Inflammatory markers were elevated with ferritin
of 693, CRP initially 23.7 on 08/10, and Christie 1 antibody was collected and is pending. C3 complement levels was collected and is reduced. C4 levels are within normal limits. Repeat CXR performed today (08/12) showed linear opacification in the right
lower lobe. There also is bilateral interstitial prominence with vascular congestion. Pulmonary now consulted for additional recommendations.
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
Impression:
#Proximal muscle weakness with elevated CRP (prior to prednisone being started on 08/10) - likely due to myositis as NCS/EMG shows electrical instability in the left thigh and left trapezius muscle
#Volume overload with RLL pleural effusion and b/l dispersed GGO --> improved s/p lasix x2 (08/12, 08/13 + 08/15)
#Shortness of breath - likely due to neuromuscular weakness in setting of volume overload (GGO bilaterally and RLL pleural effusion; also with edema in mesentery and SQ fat of abdomen/pelvis, further supporting volume o/l
#Hypochloremic, hyponatremia - normalized and now Cl(-) level is elevated
#Hypokalemia - now normalized
#Acute kidney injury - likely due to pre-renal azotemia as his Cr is now normalized
#Lactic acidosis - now normalized
#Primary hyperthyroidism with elevated TSH and elevated free T4 (he does take LT4 as an outpatient)
#Tobacco use disorder
#Fatty liver
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
Plan:
- Given the increased opacification in the right lower lobe with pleural effusion seen on CT chest and patient being net (+)approx 6L since admission, I believe he is volume overloaded --> I gave him IV lasix on 08/13 + 08/15, he seems to have
markedly improved since last lasix administration; trend BNP, monitor I/O, daily weights. If patient spikes fever then would start antibiotics with cefepime/vancomycin with adrian culture obtained prior to starting ABX. For now, continue diuretics as
tolerated and monitor I/O
- continue to closely monitor SpO2 and maintain sats >90-94%
- Continue systemic steroids --> was initially on OCS as the pt was wheezing on exam; Neurology raised dose to 60 mg given concern for myopathy with proximal >distal generalized weakness with differential including polymyositis/dermatomyositis,
drug-induced myopathy versus hypothyroidism; NCS/EMG also abnormal in left thigh and left trapezius muscles with electrical instability; given concern for connective tissue disease with acute myositis, prednisone now changed to pulse dose steroids
(1g solumedrol x 3 doses - today is last day of 1g dosing).
- No longer need to trend NIF or VC given his NIF has been WNL last 48 hrs --> hence i am no longer concerned for impending respiratory failure (currently MIP is adequate at [id number] today)
- Rheumatology on board --> recs appreciated --> follow up CTD workup (so far WNL with exception of slightly elevated aldolase level of 9)
- nicotine patch - can start with 7-14mg/day
- Continue IVIG x 5 days per neurology
- follow up TPMT to rule out deficiency
- Outpatient PFTs given he is an active tobacco smoker and is at risk for COPD
- Continue nebulized bronchodilators with DuoNebs QID
- Encourage incentive spirometer
- PT/OT
- DVT ppx --> HSQ
Pulmonary service will continue to briefly follow along; if patient's SOB remains improved and proBNP is decreasing then we will sign off at that time.
A moderate level of medical decision making was performed for this encounter; 56 minutes was spent reviewing patient's imaging, and performing pulmonary management to avoid any further worsening in his acute hypoxia.
Data:
CT Chest/Abdomen/Pelvis 08-14-2023:
IMPRESSION:
1). Small right-sided pleural effusion with associated compressive atelectasis at the posterior right lung base
2). Minimal left pleural effusion
3).There is patchy groundglass airspace disease throughout both lungs, most prominent in the upper lobes which may reflect acute or chronic inflammatory airspace disease.
4). Atherosclerosis.
5). Diffuse fatty infiltration of the liver.
6). Small volume edema in the mesentery
7). Multilevel degenerative disc disease.
8). Old 10% compression fracture of the superior endplate of L4
9).There is mild edema versus inflammatory stranding in the subcutaneous fat of the abdomen and pelvis
CXR 08-09-2023:
Mild interstitial prominence, suggesting mild interstitial edema; No definite acute airspace process or pleural effusion.
CXR 08-13-2023: Stable mild pulmonary interstitial edema. New right basilar atelectasis and/or pneumonia.
Abd US 08-10-2023:
Diffuse fatty infiltration of the liver.
Biliary sludge in the gallbladder.
Subjective Data
-
Date of Service:
Date of Service: August 17, 2023
Chief Complaint: Pulmonary Follow Up
Subjective:
MIP last night was 45 cmH2O. This morning it is 50. Vital capacity is morning is 1.78 L. She Lasix last night due to continued elevation/increased proBNP (rising to 2400 from 1979). Today he feels much better, able to take in a deep breath and
he says that even his voice feels more towards normal (which is normally a deep voice). He is on room air currently, breathing comfortably. He is able to walk around the unit without feeling excessive fatigue, although his heart rate is in the
120�130s when he returns to his room. He is eating well, denies any abdominal pain nausea, vomiting. He currently denies any chest pain, shortness of breath, fevers or chills.
Review of Systems
General: Other (12 point ROS performed and is negative unless mentioned above.)
Objective Data
Data Reviewed
Vital Signs / I&O / Oxygen:
Vital Signs
Temp Pulse Resp BP Pulse Ox
98.6 F 82 18 135/86 96
08/17/23 11:04 08/17/23 11:04 08/17/23 11:04 08/17/23 11:04 08/17/23 11:04
Intake and Output
08/16/23 08/17/23 08/18/23
06:59 06:59 06:59
Intake Total 1448 / 1448 2783 / 2783
Output Total 1350 / 1350 2550 / 2550
Balance 98 / 98 233 / 233
SaO2 96
Nasal Cannula flow liters per 2
minute
Physical Exam
General: Respiratory Distress (negative), Comfortable and Sweats (negative)
HEENT: Normocephalic and Anicteric
Cardiovascular: S1-S2 and Peripheral Edema (negative)
Respiratory: Clear, Wheeze (Negative), Crackles (negative), Rhonchi (negative) and Non-Labored Respirations
GI: Soft, Non Distended and Non Tender
Neurology: Awake, Alert and Tremors (negative)
Skin: Warm and Dry
Labs/Micro/Reports
Lab Data
08/16/23 05:27
08/16/23 05:27
Microbiology
08/13/23 08:12 Blood/Venous Blood Culture - Preliminary
No Growth in 4 days- Final report to follow
--- NOTE | 2023-08-17 10:07 | W.PN.NEURO.1 ---
Today's Communication / Plan
-
-Changed prednisone 60 mg to Methylprednisolone 1gm IV daily x 3 (Day 3 today) then back to Prednisone 60 mg daily.
-Initiated immunoglobulin 400 mg/kg/ 5-day course (day 4 today), last day 08/18/2023.
-Remain off Colchicine.
Advised patient to contact [facility] Department of neuromuscular disease for outpatient evaluation possible muscle biopsy
Neuro Assessment/Plan
Assessment
This is a 57-year-old male with past medical history of hypothyroidism, gout, hypertension presented to on 08/10/23 with report of dyspnea, generalized weakness, and falls.
CT chest abdomen pelvis suggestive of interstitial changes in the chest
EMG 08/14/23: Chronic inflammatory or toxic myopathy based on short duration small amplitude polyphasic motor unit potentials identified in the left upper trapezius as well as left tensor fascia eber and left vastus medialis muscles. Length-dependent
axonal sensorimotor peripheral polyneuropathy. Moderate right median neuropathy at the wrist.
Impressions
1. Concern for myopathy producing proximal more than distal generalized weakness. Possibilities include from polymyositis or dermatomyositis
2. Significant gout history
3. Hypertension
4. Hypothyroidism
Plan
-Changed prednisone 60 mg to Methylprednisolone 1gm IV daily x 3 (Day 3 today) then back to Prednisone 60 mg daily.
-Initiated immunoglobulin 400 mg/kg/ 5-day course (day 4 today), last day 08/18/2023.
-Remain off Colchicine.
Advised patient to contact [facility] Department of neuromuscular disease for outpatient evaluation possible muscle biopsy
-PT/OT/ST evaluations.
-DVT prophylaxis.
Will follow
Subjective/Objective
Subjective Data
Date of Service: August 17, 2023
Improved strength
Objective Data
Vital Signs
Temp Pulse Resp BP Pulse Ox
36.8 C 85 14 142/95 94
08/17/23 07:35 08/17/23 07:35 08/17/23 07:35 08/17/23 07:35 08/17/23 07:35
Lab Results
08/16/23 05:27
08/16/23 05:27
PT 19.1 Sec (11.4-14.6) H 08/11/23 05:45
INR 1.63 08/11/23 05:45
APTT 37.3 Sec (23.4-35.0) H 08/09/23 20:06
Sodium 137 mmol/L (135-145) 08/16/23 05:27
Potassium 3.7 mmol/L (3.5-5.1) 08/16/23 05:27
BUN 17 mg/dl (9-20) 08/16/23 05:27
Glucose 202 mg/dl (70-99) H 08/16/23 05:27
Calcium 7.4 mg/dl (8.4-10.2) L 08/16/23 05:27
Phosphorus 3.5 mg/dl (2.5-4.5) 08/10/23 05:48
Jof-O-Xhudvfouuly Pept 2400 pg/ml 08/16/23 05:27
Vitamin B12 > 1000 pg/ml (239-931) H 08/13/23 05:37
Patient Allergies
Penicillins Allergy (Verified 08/09/23 19:45)
Unknown
Review of Systems
-
History Source: Patient
All other systems: Reviewed and negative
EENT: Negative Swallowing Difficulty
Respiratory: Trouble Breathing
Cardiac: Negative Chest Pain
Neuro: Weakness
Physical Exam
-
General: No Apparent Distress and Appears Stated Age
Eyes: No Ptosis
HEENT: Normocephalic and Atraumatic
Neck: Full Range of Motion
Respiratory: Negative No Dyspnea
Cardiac: No JVD
GI: Non-distended
Extremities: No Clubbing, No Cyanosis and No Edema
Psych: Unremarkable
Extended Neurological Exam
Mood & Affect: Mood Unremarkable and Affect Unremarkable
Attention Span & Concentration: Awake, Alert, Interactive and No Difficulty with 2 Step Request
Memory: Unremarkable
Tremor: Hand Tremor Absent and Head Tremor Absent
Involuntary Movement: None
Speech: Quantity Unremarkable and Rate of Production Unremarkable
Cranial Nerve II: Left Eye: Pupillary Size Unremarkable and Visual Barnhart Grossly Intact
Cranial Nerve II: Right Eye: Pupillary Size Unremarkable and Visual Barnhart Grossly Intact
Cranial Nerves III, IV, : Extraocular Movement: Grossly Intact
Cranial Nerve V: Facial Sensation: Intact to Light Touch
Cranial Nerve VII: Facial Symmetry: Normal Facial Symmetry
Cranial Nerve VIII: Hearing: Unremarkable Hearing to Normal Conversational Volume
Cranial Nerves IX, X: Palate Movement: Palate Elevation Symmetric
Cranial Nerve XI: Shoulder Shrug: Reduced on Right and Reduced on Left
Cranial Nerve XII: Tongue Protusion: Midline
Muscle Strength, Overall: Reduced Throughout (Neck flexion 5/5, neck extension 5/5, b/l shoulder 3/5, b/l hip flexion 4/5)
Muscle Bulk & Tone: Bulk Unremarkable and Tone Unremarkable
Touch Sensation: Unremarkable
Coordination: Reaches for Objects without Difficulty
Gait & Station: Unable to Assess
Data Reviewed
-
Labs: Report Reviewed
Reviewed with: Physician and Patient
Old Records: Summarized
[2023-08-17] MEDS: TYLENOL 650 MG PO (11:06)
[2023-08-17] MEDS: SOLU-MEDROL 258 MG IV (11:06)
[2023-08-17] MEDS: BENADRYL 25 MG IV (11:06)
--- NOTE | 2023-08-17 12:03 | W.PN.HOSP.TC ---
Today's Communication/Plan
-
see A/P
Assessment / Plan
Assessment / Plan
pt is a 57 year old male
DROOTEO, resolved.
Creat 2 on admission, improved to 1.0
Hypokalemia--replete/resolved
Hyponatremia--improved--? pain as etiology
Hypotension-- resolved
Lactic Acidosis--resolved
Abnormal LFTs-- Patient with hyperbilirubinemia/elevated AST/ALT/ALP all better--US with fatty liver
�
Marked SOB with any exertion and weakness--CXR with pulm edema, atelectasis/pneumonia--apprec pulm/neuro--suspecting dermatomyositis (although CPK is NORMAL) EMG apparently consistent with Myositis--ECHO with preserved EF, doubt CHF--on day4/5 of
IVIG; IV Methylprednisolone 1gm IV daily x 3 days then back to Prednisone 60 mg daily.
Leukocytosis/Thrombocytosis (resolved)--Currently believe related to steroids.
Hypothyroidism- Under-replaced.�In part due to patient taking no meds for at least one week- Restart T4 supplementation at slightly higher dose- Repeat TFTs in 4-6 weeks.
Essential Hypertension--resumed amlodipine
Severe Tophaceous Gout- Stable at present- Patient notes that tophi are significantly improved from prior.
Hypoalbuminemia
DVT Prophylaxis: now on Heparin 5k q12h
Code Status:� Full
Anticipated Discharge: Within 24 hours
Subjective/Interval History
-
Date of Service: August 17, 2023
Objective Data
-
Vital Signs:
Vital Signs
Temp Pulse Resp BP Pulse Ox
37.0 C 82 18 135/86 96
08/17/23 11:04 08/17/23 11:04 08/17/23 11:04 08/17/23 11:04 08/17/23 11:04
I&O
08/16/23 08/17/23 08/18/23
06:59 06:59 06:59
Intake Total 1448 / 1448 2783 / 2783
Output Total 1350 / 1350 2550 / 2550
Balance 98 / 98 233 / 233
Review of Systems
-
All other systems: Reviewed and negative
Physical Exam
-
General: Well Developed, Well Nourished, No Apparent Distress, Comfortable and Conversant
HEENT: Normocephalic and Atraumatic
Respiratory: Clear to Auscultation and Non Labored Respirations; Negative Wheezes, Rhonchi or Accessory Resp Muscle Use
Cardiac: Regular Rhythm and S1/S2; Negative Murmur
GI: Soft, Nontender, Nondistended and Normal Bowel Sounds
Musculoskeletal: No Clubbing, No Cyanosis and No Edema
Neuro: Awake
Psych: Calm and Intact Judgement/Insight
[2023-08-17] MEDS: GAMMAGARD 50 IV (12:31)
--- NOTE | 2023-08-17 13:07 | W.PN.UPDATE ---
Update Note
Progress Note Update
Spoke with Dr. Vieyra, no further rheum input needed at this time. Will sign off.
[2023-08-17] MEDS: GAMMAGARD 200 IV (13:45)
--- NOTE | 2023-08-17 14:31 | CM ---
Patient seen at beside. Patient plan is home with [facility] or [facility] and [facility] to follow. Patient will need script for a walker at discharge. CM will update physician. Patient anticipating discharge on Sunday, approx. CM will continue to follow for
discharge planning needs.
Plan; home with [facility] and walker;
--- NOTE | 2023-08-17 15:52 | PTCARENOTE ---
Dose 4/5
Pt received IVIG Infusion, premedicated with tylenol and benadryl per orders. Pt tolerated well Vitals remained stable throughout, refer to IVIG titration. Afebrile. NSR-ST on tele Plan of care ongoing.
[2023-08-18] VITALS (11 sets, daily range): BP systolic 130–155; BP diastolic 78–103; BMI 28.8
[2023-08-18] MEDS: SYNTHROID 88 MCG PO (06:15)
[2023-08-18] MEDS: NORVASC 5 MG PO (08:34)
[2023-08-18] MEDS: DELTASONE 60 MG PO (08:35)
[2023-08-18] MEDS: NSS (PRESERVATIVE FREE) 10 ML IV (08:36)
[2023-08-18] MEDS: COLCHICINE PO (08:36)
[2023-08-18] MEDS: PROTONIX IV 40 MG IV (08:36)
[2023-08-18] MEDS: HEPARIN 5000 UNITS SC (08:36)
[2023-08-18] MEDS: FOLVITE 1 MG PO (08:36)
[2023-08-18 08:52] LABS: Hemoglobin 9.4 g/dL (13.0-18.0); Mean Corp Hgb Conc. 33.6 g/dL (33.0-37.0); Mean Corpuscular Hgb 34.3 pg (27.0-31.0); Mean Corpuscular Volume 102.2 fL (80.0-94.0); Mean Platelet Volume 11.8 fL (7.4-10.4); Platelet Count 220 10^3/uL (130-400); Red Blood Cell Count 2.74 10^6/uL (4.70-6.10); Red Cell Dist. Width 15.3 % (11.5-14.5); White Blood Cell Count 15.2 10^3/uL (4.8-10.8)
[2023-08-18 09:25] LABS: NT-proBNP 4050 pg/ml
[2023-08-18 10:02] LABS: Blood Urea Nitrogen 22 mg/dl (9-20); Calcium 7.3 mg/dl (8.4-10.2); Carbon Dioxide 20 mmol/L (22-30); Chloride 110 mmol/L (98-107); Estimated Creatinine Clearance 78 ml/min; Glucose 226 mg/dl (70-99); Magnesium 1.3 mg/dl (1.6-2.3); Phosphorus 3.9 mg/dl (2.5-4.5); Potassium 2.5 mmol/L (3.5-5.1); Sodium 135 mmol/L (135-145); Uric Acid 1.4 mg/dl (3.5-8.5); eGFR > 60.00
[2023-08-18] MEDS: KCL 40 MEQ PO (10:22)
[2023-08-18] MEDS: KCL 270 MEQ IV (10:23)
--- NOTE | 2023-08-18 11:30 | PTCARENOTE ---
Potassium level 2.5 this morning. Given 40 meq Kdur and 40 meq IV over 4 hours hung as per MD order. Patient denies symptoms at this time.
[2023-08-18] MEDS: TYLENOL 650 MG PO (11:39)
[2023-08-18] MEDS: BENADRYL 25 MG IV (11:40)
[2023-08-18] MEDS: MAGNESIUM SULFATE 100 IV (13:01)
--- NOTE | 2023-08-18 13:28 | W.PN.HOSP.TC ---
Today's Communication/Plan
-
finish IVIG
replete K and mag
planning for d/c tomorrow if labs stable
Assessment / Plan
Assessment / Plan
pt is a 57 year old male
DOROTEO, resolved--Creat 2 on admission, improved to 1.0
Hypokalemia/hypomagnesemia--replete/resolved
Hyponatremia--improved--? pain as etiology
Hypotension-- resolved
Lactic Acidosis--resolved
Abnormal LFTs-- Patient with hyperbilirubinemia/elevated AST/ALT/ALP all better--US with fatty liver
�
Marked SOB with any exertion and weakness--CXR with pulm edema, atelectasis/pneumonia--apprec pulm/neuro--suspecting dermatomyositis (although CPK is NORMAL) EMG apparently consistent with Myositis--ECHO with preserved EF, doubt CHF--on day4/5 of
IVIG; IV Methylprednisolone 1gm IV daily x 3 days then back to Prednisone 60 mg daily.
Leukocytosis/Thrombocytosis (resolved)--Currently believe related to steroids.
Hypothyroidism- Under-replaced.�In part due to patient taking no meds for at least one week- Restart T4 supplementation at slightly higher dose- Repeat TFTs in 4-6 weeks.
Essential Hypertension--resumed amlodipine
Severe Tophaceous Gout- Stable at present- Patient notes that tophi are significantly improved from prior.
Hypoalbuminemia
DVT Prophylaxis: now on Heparin 5k q12h
Code Status:� Full
Anticipated Discharge: Within 24 hours
Subjective/Interval History
-
Date of Service: August 18, 2023
pt getting IV potassium
Objective Data
-
Labs:
Laboratory Results
08/18/23
05:57
WBC 15.2 H
Hgb 9.4 L
Hct 28.0 L
Plt Count 220
Sodium 135
Potassium 2.5 L* D
Chloride 110 H
Carbon Dioxide 20 L
BUN 22 H
Creatinine 1.0
Glucose 226 H
Calcium 7.3 L
Vital Signs:
max temp for 24 hours
08/18/23
07:46
Temp 97.8 F
Vital Signs
Temp Pulse Resp BP Pulse Ox
97.5 F 98 18 130/85 95
08/18/23 11:02 08/18/23 11:02 08/18/23 11:02 08/18/23 11:02 08/18/23 11:02
I&O
08/17/23 08/18/23 08/19/23
06:59 06:59 06:59
Intake Total 2783 / 2783 2908 / 2908
Output Total 2550 / 2550 1100 / 1100
Balance 233 / 233 1808 / 1808
Review of Systems
-
All other systems: Reviewed and negative
Physical Exam
-
General: Well Developed, Well Nourished and No Apparent Distress
HEENT: Normocephalic and Atraumatic
Respiratory: Clear to Auscultation; Negative Wheezes, Rales or Rhonchi
Cardiac: Regular Rhythm and S1/S2; Negative Murmur
GI: Soft, Nontender, Nondistended and Normal Bowel Sounds
Musculoskeletal: No Clubbing, No Cyanosis and No Edema
Neuro: Awake
--- NOTE | 2023-08-18 15:12 | W.PN.PUL3 ---
Today's Communication / Plan
-
Improved from the pulmonary perspective
Off oxygen therapy
Continue therapy for myositis
May continue nebulizer while in the hospital
Will need pulmonary function testing and radiographic follow-up in the outpatient setting.
Follow-up with Dr. Meyer in our office after discharge.
Sign off
Assessment
-
Assessment: 57-year-old male with a past medical history of gout on methotrexate and hypertension who presents with generalized weakness X 2 weeks that developed into shortness of breath. He has been on infusions for gout and believes that the
medication is causing these side effects with weakness and shortness of breath. In the ER patient was hypotensive to 94/70 and hypoxic to 93% on room air. Patient is an everyday tobacco smoker. Multiple electrolyte abnormalities were seen with
hyponatremia, hypokalemia, elevated creatinine, lactic acidosis, elevated LFTs, abnormal TFTs, elevated D-dimer, leukocytosis, and elevated platelet count. 2L IVF with NS 0.9% was given in addition to Abx (aztreonam, KCl infusion and zithromax).
Initial CXR showed mild interstitial prominence suggestive of mild interstitial edema. Patient was admitted to the hospitalist service. Urinalysis was negative for UTI. Antibiotics were stopped. Inflammatory markers were elevated with ferritin
of 693, CRP initially 23.7 on 08/10, and Christie 1 antibody was collected and is pending. C3 complement levels was collected and is reduced. C4 levels are within normal limits. Repeat CXR performed today (08/12) showed linear opacification in the right
lower lobe. There also is bilateral interstitial prominence with vascular congestion. Pulmonary now consulted for additional recommendations.
Chronic conditions [facility] AGRONOMIST: Gout, hypothyroidism, hypertension, hyperlipidemia
Impression:
#Proximal muscle weakness with elevated CRP (prior to prednisone being started on 08/10) - likely due to myositis as NCS/EMG shows electrical instability in the left thigh and left trapezius muscle
#Volume overload with RLL pleural effusion and b/l dispersed GGO --> improved s/p lasix x2 (08/12, 08/13 + 08/15)
#Shortness of breath - likely due to neuromuscular weakness in setting of volume overload (GGO bilaterally and RLL pleural effusion; also with edema in mesentery and SQ fat of abdomen/pelvis, further supporting volume o/l
#Hypochloremic, hyponatremia - normalized and now Cl(-) level is elevated
#Hypokalemia - now normalized
#Acute kidney injury - likely due to pre-renal azotemia as his Cr is now normalized
#Lactic acidosis - now normalized
#Primary hyperthyroidism with elevated TSH and elevated free T4 (he does take LT4 as an outpatient)
#Tobacco use disorder
#Fatty liver
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
Plan:
- Given the increased opacification in the right lower lobe with pleural effusion seen on CT chest and patient being net (+)approx 6L since admission,
Status post diuresis with good response.
-Oxygen supplementation has been discontinued. Able to lay flat in the bed.
-
Continue therapy for myopathy:
- Continue systemic steroids --> was initially on OCS as the pt was wheezing on exam; Neurology raised dose to 60 mg given concern for myopathy with proximal >distal generalized weakness with differential including polymyositis/dermatomyositis,
drug-induced myopathy versus hypothyroidism; NCS/EMG also abnormal in left thigh and left trapezius muscles with electrical instability; given concern for connective tissue disease with acute myositis, prednisone now changed to pulse dose steroids
(1g solumedrol x 3 doses -completed.)
- No longer need to trend NIF or VC given his NIF has been WNL last 48 hrs --> hence i am no longer concerned for impending respiratory failure (currently MIP is adequate at 48taV4F today)
- Rheumatology/neurology on board --> follow up CTD workup (so far WNL with exception of slightly elevated aldolase level of 9)
- nicotine patch -continues.
- Continue IVIG x 5 days per neurology, ongoing
- Outpatient PFTs given he is an active tobacco smoker and is at risk for COPD, patient aware.
- Continue nebulized bronchodilators with DuoNebs QID while in the hospital. May discontinue upon discharge.
- Encourage incentive spirometer while in the hospital
No additional recommendation from the pulmonary perspective.
I agree with discharge planning
Outpatient pulmonary follow-up with Dr. Meyer.
Sign off

Data:
CT Chest/Abdomen/Pelvis 08-14-2023:
IMPRESSION:
1). Small right-sided pleural effusion with associated compressive atelectasis at the posterior right lung base
2). Minimal left pleural effusion
3).There is patchy groundglass airspace disease throughout both lungs, most prominent in the upper lobes which may reflect acute or chronic inflammatory airspace disease.
4). Atherosclerosis.
5). Diffuse fatty infiltration of the liver.
6). Small volume edema in the mesentery
7). Multilevel degenerative disc disease.
8). Old 10% compression fracture of the superior endplate of L4
9).There is mild edema versus inflammatory stranding in the subcutaneous fat of the abdomen and pelvis
CXR 08-09-2023:
Mild interstitial prominence, suggesting mild interstitial edema; No definite acute airspace process or pleural effusion.
CXR 08-13-2023: Stable mild pulmonary interstitial edema. New right basilar atelectasis and/or pneumonia.
Abd US 08-10-2023:
Diffuse fatty infiltration of the liver.
Biliary sludge in the gallbladder.
Subjective Data
-
Date of Service:
Date of Service: August 18, 2023
Chief Complaint: Pulmonary Follow Up
Subjective:
Patient reports clinical improvement
Denies any cough or wheezing or phlegm production.
Remains off supplemental oxygen
On IVIG
Review of Systems
General: Fever (n)
GI: Abdominal Pain (n), Nausea (n) and Vomiting (n)
Objective Data
Data Reviewed
Vital Signs / I&O / Oxygen:
Vital Signs
Temp Pulse Resp BP Pulse Ox
97.5 F 98 18 130/85 95
08/18/23 11:02 08/18/23 11:02 08/18/23 11:02 08/18/23 11:02 08/18/23 11:02
Intake and Output
08/17/23 08/18/23 08/19/23
06:59 06:59 06:59
Intake Total 2783 / 2783 2908 / 2908
Output Total 2550 / 2550 1100 / 1100
Balance 233 / 233 1808 / 1808
SaO2 95
Nasal Cannula flow liters per 2
minute
Physical Exam
General: Respiratory Distress (negative), Comfortable and Sweats (negative)
HEENT: Normocephalic and Anicteric
Cardiovascular: S1-S2 and Peripheral Edema (negative)
Respiratory: Clear, Wheeze (Negative), Crackles (negative), Rhonchi (negative) and Non-Labored Respirations
GI: Soft, Non Distended and Non Tender
Neurology: Awake, Alert and Tremors (negative)
Skin: Warm and Dry
Labs/Micro/Reports
Lab Data
08/18/23 05:57
08/18/23 05:57
Microbiology
08/13/23 08:12 Blood/Venous Blood Culture - Final
No Growth - Final Report
--- NOTE | 2023-08-18 15:23 | W.PN.UPDATE ---
Update Note
Progress Note Update
Patient reports that he can walk further than prior to steroids and IVIG.
-On prednisone 60 mg daily after completing course of methylprednisolone 1gm IV
- last day 08/18/2023 of IVIG is today
-I contacted the [place] neurology patient liaison with the patient's permission and provided his info; they should contact him directly to facilitate an expedited outpatient appt with a neuromuscular specialist.
-PT/OT/ST evaluations.
-DVT prophylaxis.
Neurology is signing off. Please call with further questions.
[2023-08-18] MEDS: GAMMAGARD 200 IV (15:58)
--- NOTE | 2023-08-18 18:28 | PTCARENOTE ---
5th dose of immunoglobulin initiated. Vitals and dose increases as per protocol. Tolerating infusion well. Vital signs stable. Denies complaints.
[2023-08-18] MEDS: HEPARIN SC (20:59)
[2023-08-19] VITALS (7 sets, daily range): BP systolic 135–157; BP diastolic 93–104; BMI 28.7
[2023-08-19] MEDS: SYNTHROID 88 MCG PO (05:25)
[2023-08-19] MEDS: NORVASC 5 MG PO (08:08)
[2023-08-19] MEDS: FOLVITE 1 MG PO (08:08)
[2023-08-19] MEDS: DELTASONE 60 MG PO (08:08)
[2023-08-19] MEDS: COLCHICINE PO (08:08)
[2023-08-19 08:09] LABS: Hematocrit 31.3 % (39.0-52.0); Hemoglobin 10.3 g/dL (13.0-18.0); Mean Corp Hgb Conc. 32.9 g/dL (33.0-37.0); Mean Corpuscular Hgb 34.1 pg (27.0-31.0); Mean Corpuscular Volume 103.6 fL (80.0-94.0); Mean Platelet Volume 11.7 fL (7.4-10.4); Platelet Count 207 10^3/uL (130-400); Red Blood Cell Count 3.02 10^6/uL (4.70-6.10); Red Cell Dist. Width 15.3 % (11.5-14.5); White Blood Cell Count 12.8 10^3/uL (4.8-10.8)
[2023-08-19] MEDS: PROTONIX IV 40 MG IV (08:10)
[2023-08-19] MEDS: NSS (PRESERVATIVE FREE) 10 ML IV (08:11)
[2023-08-19 09:02] LABS: ALT (SGPT) 120 U/L (0-50); AST (SGOT) 83 U/L (17-59); Albumin 2.4 g/dl (3.5-5.0); Alkaline Phosphatase 189 U/L (38-126); Blood Urea Nitrogen 21 mg/dl (9-20); Calcium 7.7 mg/dl (8.4-10.2); Carbon Dioxide 22 mmol/L (22-30); Chloride 111 mmol/L (98-107); Estimated Creatinine Clearance 87 ml/min; Glucose 96 mg/dl (70-99); Magnesium 1.9 mg/dl (1.6-2.3); Potassium 2.9 mmol/L (3.5-5.1); Sodium 136 mmol/L (135-145); Total Bilirubin 0.9 mg/dl (0.2-1.3); Total Protein 6.9 g/dl (6.3-8.2); eGFR > 60.00
[2023-08-19] MEDS: HEPARIN SC (09:26)
[2023-08-19] MEDS: KCL 40 MEQ PO ×3 (11:05→21:53)
--- NOTE | 2023-08-19 13:22 | W.PN.HOSP.TC ---
Today's Communication/Plan
-
replete K--added TID
follow in AM
Assessment / Plan
Assessment / Plan
pt is a 57 year old male
DOROTEO, resolved--Creat 2 on admission, improved to 0.9
Hypokalemia/hypomagnesemia--replete/resolved
Hyponatremia--improved--? pain as etiology
Hypotension-- resolved
Lactic Acidosis--resolved
Abnormal LFTs-- Patient with hyperbilirubinemia/elevated AST/ALT/ALP all better--US with fatty liver
�
Marked SOB with any exertion and weakness--CXR with pulm edema, atelectasis/pneumonia--apprec pulm/neuro--suspecting dermatomyositis (although CPK is NORMAL) EMG apparently consistent with Myositis--ECHO with preserved EF, doubt CHF--on day4/5 of
IVIG; IV Methylprednisolone 1gm IV daily x 3 days then back to Prednisone 60 mg daily--will likely need biopsy as outpt
Leukocytosis/Thrombocytosis (resolved)--Currently believe related to steroids.
Hypothyroidism- Under-replaced.�In part due to patient taking no meds for at least one week- Restart T4 supplementation at slightly higher dose- Repeat TFTs in 4-6 weeks.
Essential Hypertension--resumed amlodipine
Severe Tophaceous Gout- Stable at present- Patient notes that tophi are significantly improved from prior.
Hypoalbuminemia
DVT Prophylaxis: now on Heparin 5k q12h
Code Status:� Full
Anticipated Discharge: Within 24 hours
Subjective/Interval History
-
Date of Service: August 19, 2023
pt has low potassium this AM--cannot d/c
Objective Data
-
Labs:
Laboratory Results
08/19/23
05:46
WBC 12.8 H
Hgb 10.3 L
Hct 31.3 L
Plt Count 207
Sodium 136
Potassium 2.9 L
Chloride 111 H
Carbon Dioxide 22
BUN 21 H
Creatinine 0.9
Glucose 96
Calcium 7.7 L
Total Bilirubin 0.9
AST 83 H
ALT 120 H
Alkaline Phosphatase 189 H
Vital Signs:
max temp for 24 hours
08/19/23
03:31
Temp 98.5 F
Vital Signs
Temp Pulse Resp BP Pulse Ox
97.9 F 114 20 151/94 93
08/19/23 11:55 08/19/23 11:55 08/19/23 11:55 08/19/23 11:55 08/19/23 11:55
I&O
08/18/23 08/19/23 08/20/23
06:59 06:59 06:59
Intake Total 2908 / 2908 840 / 840
Output Total 1100 / 1100 1625 / 1625
Balance 1808 / 1808 -785 / -785
Review of Systems
-
All other systems: Reviewed and negative
Physical Exam
-
General: Well Developed, Well Nourished and No Apparent Distress
HEENT: Normocephalic and Atraumatic
Respiratory: Clear to Auscultation; Negative Wheezes or Rhonchi
Cardiac: Regular Rhythm and S1/S2; Negative Murmur
GI: Soft, Nontender, Nondistended and Normal Bowel Sounds
Musculoskeletal: No Clubbing, No Cyanosis and No Edema
Skin: Warm and Dry
Neuro: Awake
Psych: Calm
[2023-08-19] MEDS: HEPARIN 5000 UNITS SC (20:13)
[2023-08-20] VITALS (7 sets, daily range): BP systolic 131–153; BP diastolic 80–106; PULSE 80; BMI 28.2
[2023-08-20] MEDS: SYNTHROID 88 MCG PO (06:20)
[2023-08-20 07:54] LABS: Blood Urea Nitrogen 21 mg/dl (9-20); Calcium 8.5 mg/dl (8.4-10.2); Carbon Dioxide 25 mmol/L (22-30); Chloride 107 mmol/L (98-107); Estimated Creatinine Clearance 87 ml/min; Glucose 107 mg/dl (70-99); Magnesium 1.5 mg/dl (1.6-2.3); Sodium 136 mmol/L (135-145); eGFR > 60.00
[2023-08-20] MEDS: NORVASC 5 MG PO (08:44)
[2023-08-20] MEDS: DELTASONE 60 MG PO (08:44)
[2023-08-20] MEDS: COLCHICINE 0.599999999999999978 MG PO (08:44)
[2023-08-20] MEDS: KCL 40 MEQ PO ×3 (08:45→21:01)
[2023-08-20] MEDS: PROTONIX IV 40 MG IV (08:45)
[2023-08-20] MEDS: NSS (PRESERVATIVE FREE) 10 ML IV (08:45)
[2023-08-20] MEDS: HEPARIN 5000 UNITS SC (08:45)
[2023-08-20] MEDS: FOLVITE 1 MG PO (08:46)
[2023-08-20] MEDS: FLUSH (NSS) 1 FLUSH IV ×2 (08:46→13:47)
--- NOTE | 2023-08-20 12:55 | W.PN.HOSP.TC ---
Addendum entered and electronically signed by Racquel Vieyra MD 08/20/23 15:11:
Call reached out to [place], unfortunately patient was not accepted due to limited bed availability and current clinical stability which would warrant outpatient follow up.
Original Note:
Today's Communication/Plan
-
see A/P
Assessment / Plan
Assessment / Plan
A/P:
# severe LARA and weakness on admission, much resolved
CXR with pulm edema, atelectasis/pneumonia
apprec pulm/neuro- suspecting dermatomyositis (although CPK is NORMAL)
EMG apparently consistent with Myositis
ECHO with preserved EF, doubt CHF
s/p day 5/5 IVIG
s/p IV Methylprednisolone 1gm IV daily x 3 days, cont Prednisone 60 mg daily
Informed pt to follow up with neuromuscular specialist at [place]. He states this would be difficult with his current ambulatory dysfunction.
I will try initiate transfer for pt to [place] (although chance of acceptable is low given he is clinically stable)
# DOROTEO, resolved
Creat 2 on admission, improved to 0.9 today
# Hypokalemia/hypomagnesemia
K WNL today
replete Mag IV
Outpt BMP and Mag level
# Hyponatremia, resolved
# Hypotension, resolved
# Lactic Acidosis, resolved
# Abnormal LFTs
Patient with hyperbilirubinemia/elevated AST/ALT/ALP, improved
US with fatty liver
outpt LFT with result tp PCP
# Leukocytosis/Thrombocytosis (resolved)
likely related to steroids.
# Hypothyroidism
Under-replaced.�In part due to patient not taking meds for at least one week
Restarted T4 supplementation at slightly higher dose
Repeat TFTs in 4-6 weeks.
# Essential Hypertension
resumed amlodipine
# Severe Tophaceous Gout- Stable at present
Patient notes that tophi are significantly improved from prior.
# Hypoalbuminemia
DVT Prophylaxis: HSQ
Code Status:� Full
Dispo: PT PT cleared for HH
total time spent 51 min
Anticipated Discharge: Within 24 hours
Subjective/Interval History
-
Date of Service: August 20, 2023
Objective Data
-
Labs:
Laboratory Results
08/20/23
06:22
Sodium 136
Potassium 4.0 D
Chloride 107
Carbon Dioxide 25
BUN 21 H
Creatinine 0.9
Glucose 107 H
Calcium 8.5
Vital Signs:
Vital Signs
Temp Pulse Resp BP Pulse Ox
36.9 C 88 18 141/94 97
08/20/23 11:05 08/20/23 11:05 08/20/23 11:05 08/20/23 11:05 08/20/23 11:05
I&O
08/19/23 08/20/23 08/21/23
06:59 06:59 06:59
Intake Total 840 / 840 1200 / 1200
Output Total 1625 / 1625 2130 / 2130
Balance -785 / -785 -930 / -930
[2023-08-20] MEDS: MAGNESIUM SULFATE 50 IV (13:47)
--- NOTE | 2023-08-20 16:01 | PTCARENOTE ---
Pt AAO x3, slightly irritable at times. MEEK well, sits on side of bed VSS. Telemetry:NSR,HR to 140's at times with activity. On room air- pulse ox96%, no c/o SOB. Abd large, soft, jayant PO. Voiding clear yellow urine in urinal. Resting quietly
at present, no c/o. Will continue to monitor.
--- NOTE | 2023-08-20 17:10 | CM ---
PT OT recommended VN.
Pt requested [facility] . Referral placed in care port.
Will need walker also at dc.
PLAN Home with [facility] fax [phone]
[2023-08-20] MEDS: HEPARIN SC (21:11)
[2023-08-21 02:55] VITALS: BP 138/94
[2023-08-21] MEDS: SYNTHROID 88 MCG PO (05:47)
[2023-08-21 06:00] VITALS: BMI 27.7
[2023-08-21 07:00] VITALS: BP 150/97
[2023-08-21] MEDS: DELTASONE 60 MG PO (07:53)
[2023-08-21] MEDS: NORVASC 5 MG PO (07:53)
[2023-08-21] MEDS: COLCHICINE 0.599999999999999978 MG PO (07:53)
[2023-08-21] MEDS: KCL 40 MEQ PO (07:54)
[2023-08-21] MEDS: NSS (PRESERVATIVE FREE) 10 ML IV (07:54)
[2023-08-21] MEDS: FOLVITE 1 MG PO (07:54)
[2023-08-21] MEDS: FLUSH (NSS) 1 FLUSH IV (07:54)
[2023-08-21] MEDS: PROTONIX IV 40 MG IV (07:54)
[2023-08-21] MEDS: HEPARIN SC (08:11)
--- NOTE | 2023-08-21 11:54 | W.PN.HOSP.TC ---
Addendum entered and electronically signed by Racquel Vieyra MD 08/21/23 13:41:
total DC time 35 min
Original Note:
Today's Communication/Plan
-
DC home with HH
Assessment / Plan
Assessment / Plan
A/P:
# severe LARA and weakness on admission, much resolved
CXR with pulm edema, atelectasis/pneumonia
apprec pulm/neuro- suspecting dermatomyositis (although CPK is NORMAL)
EMG apparently consistent with Myositis
ECHO with preserved EF, doubt CHF
s/p day 5/5 IVIG
s/p IV Methylprednisolone 1gm IV daily x 3 days, cont Prednisone 60 mg daily
Informed pt to follow up with neuromuscular specialist at [place]. He states this would be difficult with his current ambulatory dysfunction.
Attempted to transfer to [place], however, pt was not accepted
Pt aware to follow up with his rheum EMILIANO following discharge. Outpt Rheum can provide further info on prednisone taper.
# DOROTEO, resolved
Creat 2 on admission, improved to 0.9
# Hypokalemia/hypomagnesemia
Lytes repleted
check outpt BMP and Mag level
# Hyponatremia, resolved
# Hypotension, resolved
# Lactic Acidosis, resolved
# Abnormal LFTs
Patient with hyperbilirubinemia/elevated AST/ALT/ALP, improved
US with fatty liver
outpt LFT with result to PCP
# Leucocytosis due to steroid
# Thrombocytosis (resolved)
# Hypothyroidism
Under-replaced.�In part due to patient not taking meds for at least one week
Restarted T4 supplementation at slightly higher dose
Repeat TFTs in 4-6 weeks.
# Essential Hypertension
resumed amlodipine
# Severe Tophaceous Gout- Stable at present
Patient notes that tophi are significantly improved from prior.
# Hypoalbuminemia
DVT Prophylaxis: HSQ
Code Status:� Full
Dispo: PT OT cleared for HH
Anticipated Discharge: Today
Subjective/Interval History
-
Date of Service: August 21, 2023
Objective Data
-
Vital Signs:
Vital Signs
Temp Pulse Resp BP Pulse Ox
37.2 C 81 18 150/97 97
08/21/23 07:00 08/21/23 07:53 08/21/23 07:00 08/21/23 07:53 08/21/23 07:52
I&O
08/20/23 08/21/23 08/22/23
06:59 06:59 06:59
Intake Total 1200 / 1200 2089
Output Total 2129 / 2129
Balance -930 / -930 40 / 40
Review of Systems
-
All other systems: Reviewed and negative
Physical Exam
-
General: Well Developed, Well Nourished, No Apparent Distress, Comfortable, Conversant and Appears Chronically Ill
HEENT: Normocephalic and Atraumatic
Respiratory: Clear to Auscultation; Negative Wheezes or Rhonchi
Cardiac: Regular Rhythm and S1/S2; Negative Murmur
GI: Soft, Nontender, Nondistended and Normal Bowel Sounds
Musculoskeletal: No Clubbing, No Cyanosis and No Edema
Skin: Warm and Dry
Neuro: Awake
Psych: Calm and Intact Judgement/Insight
Data Reviewed
-
Labs: Labs Reviewed by me
--- NOTE | 2023-08-21 12:51 | W.DCSUMMARY ---
Discharge Summary
Discharge Data
Date of Admission: 08/09/23
Date of Discharge: 08/21/23
-
Pending Results: No
Hospital Course
Principal Diagnosis:
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
Acute kidney injury, resolved
Chronic Diagnoses:�
Hypothyroidism
Essential Hypertension
Severe Tophaceous Gout, stable at present
Consultations:�
Rheumatology
Neurology
Pulmonary
Procedures:�
None
Clinical course:�
This is 57 year old with past medical history as stated above, who presented with progressive weakness, dizziness and frequent falls over the past several weeks.�He also complained of significant fatigue.
Problem 1:
Dyspnea on exertion with generalized weakness, due to dermatomyositis.
His EMG was consistent with myositis, although his CPK was not elevated.
He received IVIG x5 days and IV Methylprednisolone 1gm IV x 3 days. He can continue Prednisone 60 mg daily until further directed by his platform architect.
He can continue to see his platform architect outpatient and possibly a neuromuscular specialist at [place] as well.
He was cleared by PT OT to return home with home health.
Problem 2:
Acute kidney injury, resolved
His serum creatinine was at 2 on admission, which improved to 0.9.
Problem 3:
Elevated LFT.
His abdominal ultrasound noted fatty liver.
He can continue to follow his LFT with his PCP outpatient.
As for the rest of his medical problems, they were stable during his hospital stay.
Discharge Plan
-
Patient Disposition: Home with Home Care
Discharge Diagnosis/Procedures: Myositis with concern for dermatomyositis; acute kidney injury (resolved); hypokalemia/hypomagnesemia/hyponatremia; hypothyroidism; severe tophaceous gout; essential hypertension; eleavted LFT
Condition: Fair
Diet: As tolerated and Regular
Activity: As tolerated
Driving Restrictions: As prior to admission
Bathing Restrictions: None
Blood Work: CBC, CMP in 1 week, result to your PCP
TSH reflex FT4 in 4-6 weeks with your PCP
Referrals:
Jimbo Meyer MD [Active] - in one to two months
(CT Chest in 3-4 weeks after discharge.
PFT on day of office visit.)
Juan Acevedo IV, MD [Family Provider] - in less than 1 week
Additional Discharge Medication Instructions: continue prednisone 60 mg daily until further directed by your platform architect outpatient
Prescriptions:
New
prednisone 20 mg Tablet
60 mg PO DAILY Qty: 90 0RF
Continued
amlodipine 5 mg Tablet
5 mg PO DAILY
levothyroxine 75 mcg Tablet
75 mcg PO DAILY
methotrexate sodium 2.5 mg Tablet
15 mg PO SA
folic acid 1 mg Tablet
1 mg PO DAILY
colchicine 0.6 mg Tablet
0.6 mg PO DAILY
Patient Comments:
08/09/2023: Pt states he sometimes skips if he hasn't eaten a lot or doesn't have a flare up.
Krystexxa 8 mg/mL Solution
8 mg IV Q2W
Discharge Orders:
Discharge Patient (As Directed); Ordered 08/21/23
Ordered By: Racquel Vieyra
--- NOTE | 2023-08-21 13:17 | CM ---
CM reviewed chart and noted dc order
Bedside meeting with pt
Plan for home with [facility]
He will take an Uber home
VN order requested
Update to [facility] via [facility]
Script on chart for WW and PT will issue prior to dc
Transportation resources provided for outpt appts
Discharge Disposition- home with [facility] office
fax- [phone]
[2023-08-21 13:31] VITALS: BP 130/88
== END 2023-08-21 14:16 | disposition home health service (06) | DRG 683 ==
LOC: 4 EAST ACU 22:39
PROVIDERS: Internal Medicine; Nurse Practitioner Family; ADMITTING PHYSICIAN Hospitalist; ATTENDING PHYSICIAN Internal Medicine; CONSULT PHYSICIAN Internal Medicine; CONSULT PHYSICIAN Internal Medicine Critical Care Medicine; CONSULT PHYSICIAN Physical Medicine & Rehabilitation; CONSULT PHYSICIAN Student in an Organized Health Care Education/Training Program; EMERGENCY PHYSICIAN Student in an Organized Health Care Education/Training Program; FAMILY PHYSICIAN Family Medicine; OTHER PHYSICIAN Student in an Organized Health Care Education/Training Program
PROC: 30233S1 Transfusion of Nonautologous Globulin into Peripheral Vein, Percutaneous Approach (ICD-10-PCS; 2023-08-14)
DX: N17.9 Acute kidney failure, unspecified (principal); E87.1 Hypo-osmolality and hyponatremia; E87.4 Mixed disorder of acid-base balance; J90 Pleural effusion, not elsewhere classified; J98.11 Atelectasis; E78.00 Pure hypercholesterolemia, unspecified; E87.6 Hypokalemia; E86.0 Dehydration; E86.1 Hypovolemia; E03.9 Hypothyroidism, unspecified; I11.9 Hypertensive heart disease without heart failure; M1A.9XX1 Chronic gout, unspecified, with tophus (tophi); R29.6 Repeated falls; F17.200 Nicotine dependence, unspecified, uncomplicated; I95.9 Hypotension, unspecified; K76.0 Fatty (change of) liver, not elsewhere classified; R79.89 Other specified abnormal findings of blood chemistry; D75.839 Thrombocytosis, unspecified; R09.02 Hypoxemia; E05.90 Thyrotoxicosis, unspecified without thyrotoxic crisis or storm; D69.6 Thrombocytopenia, unspecified; E88.09 Other disorders of plasma-protein metabolism, not elsewhere classified; D72.829 Elevated white blood cell count, unspecified; R13.10 Dysphagia, unspecified; Z79.890 Hormone replacement therapy; Z91.81 History of falling; Z80.0 Family history of malignant neoplasm of digestive organs; Z82.49 Family history of ischemic heart disease and other diseases of the circulatory system; Z88.0 Allergy status to penicillin; Z77.090 Contact with and (suspected) exposure to asbestos
CPT/HCPCS: 71045; 71250; 74176; 76700; 80048; 80053; 81003; 81099; 82085; 82248; 82550; 82607; 82728; 82746; 82784; 83540; 83550; 83605; 83690; 83735; 83880; 83935; 84100; 84145; 84300; 84439; 84443; 84484; 84550; 85025; 85027; 85379; 85610; 85652; 85730; 86038; 86140; 86160; 86235; 87040; 92610; 93005; 93306; 95886; 95912; 96361; 96365; 96375; 97116; 97163; 97167; 97530; 97535; 99291; J1569

== ENCOUNTER → 2024-04-03 13:53 | Outpatient (REF) | payer OTHER, SELFPAY | LOC: HWRAD 13:53 | PROVIDERS: ATTENDING PHYSICIAN Internal Medicine Critical Care Medicine; FAMILY PHYSICIAN Family Medicine; REFERRING PHYSICIAN Psychiatry & Neurology Neuromuscular Medicine | DX: R06.02 Shortness of breath (principal); R93.89 Abnormal findings on diagnostic imaging of other specified body structures | CPT/HCPCS: 71250 ==